=== PATIENT | female | born 1985 | race Caucasian/White ===

== ENCOUNTER 2016-07-30 17:48 | Emergency (ER) | payer OTHER ==
--- NOTE | 2016-07-30 18:34 | PD ---
HPI Chief Complaint Fall Date Seen: July 30, 2016 Travel History International Travel<30 Days: No Contact w/Intl Traveler<30Days: No Known Affected Area: No History of Present Illness HPI 31-year-old female at 33 weeks and 5 days comes in today due to a fall. Patient was caught shoplifting and was running from the uniform patrol police officer when she fell on her side at approximately 5 PM today. Patient states that she's had some pelvic pressure during the day today but no abdominal pain pelvic pain or other trauma. Patient admits to using cocaine and heroin and marijuana this morning. Patient has seen Dr. Salcedo in the past but has not had any further care for several weeks. Para: 1 : 4 : 2 History Past Medical History Medical History: Denies Significant Hx Obstetric History Obstetric History 1 spontaneous vaginal delivery Past Surgical History Narrative Surgical Inguinal hernia surgery Family History Family History: Negative Social History Alcohol Use: Yes Tobacco Use: Yes Substance Abuse: Yes Allergies-Medications (Allergen,Severity, Reaction): Coded Allergies: No Known Allergies (Unverified , 02/03/16) Home Meds No Active Prescriptions or Reported Meds Review of Systems Except as stated in HPI: all other systems reviewed are Neg Physical Exam Narrative GENERAL: Well-nourished, well-developed patient. SKIN: Warm and dry. HEAD: Normocephalic and atraumatic. EYES: No scleral icterus. No injection or drainage. ENT: No nasal drainage noted. Mucous membranes pink. Airway patent. NECK: Supple, trachea midline. No JVD. CARDIOVASCULAR: Regular rate and rhythm without murmurs, gallops, or rubs. RESPIRATORY: Breath sounds equal bilaterally. No accessory muscle use. BREASTS: Bilateral exam showed no masses , no retractions, no nipple discharge. ABDOMEN/GI: Abdomen soft, non-tender, bowel sounds present, no rebound, no guarding Gravid to [-32] weeks size Fundal Height: [33-] GENITOURINARY: External Genitalia: intact and normal in appearance BUS glands: [-Normal] Cervix: [Posterior] Dilatation: [-Fingertip] Effacement: [50-] Station: [-High] Presentation: [-Vertex] Membranes: [intact or ruptured] Uterine Contractions: [-Absent] FHT's: Category: [-1] Baseline: [-145] Reactive: [-Moderate] Variability: [-Moderate] Decels: [-Absent] EXTREMITIES: No cyanosis or edema. BACK: Nontender without obvious deformity. No CVA tenderness. NEUROLOGICAL: Awake and alert. Motor and sensory grossly within normal limits. Five out of 5 muscle strength in all muscle groups. Normal speech. Data Data Vital Signs Reviewed: Yes Labs Laboratory Tests Test 07/30/16 07/30/16 17:54 18:30 Urine Opiates Screen POS Urine Barbiturates Screen NEG Urine Amphetamines Screen NEG Urine Benzodiazepines Screen NEG Urine Cocaine Screen POS Urine Cannabinoids Screen POS White Blood Count 11.0 TH/MM3 Red Blood Count 3.50 MIL/MM3 Hemoglobin 9.8 GM/DL Hematocrit 29.4 % Mean Corpuscular Volume 83.9 FL Mean Corpuscular Hemoglobin 28.1 PG Mean Corpuscular Hemoglobin 33.5 % Concent Red Cell Distribution Width 16.2 % Platelet Count 293 TH/MM3 Mean Platelet Volume 7.8 FL Neutrophils (%) (Auto) 79.0 % Lymphocytes (%) (Auto) 13.5 % Monocytes (%) (Auto) 6.1 % Eosinophils (%) (Auto) 0.6 % Basophils (%) (Auto) 0.8 % Neutrophils # (Auto) 8.7 TH/MM3 Lymphocytes # (Auto) 1.5 TH/MM3 Monocytes # (Auto) 0.7 TH/MM3 Eosinophils # (Auto) 0.1 TH/MM3 Basophils # (Auto) 0.1 TH/MM3 CBC Comment DIFF FINAL Differential Comment Blood Type O POSITIVE MDM Plan 31-year-old female at 33 weeks 5 days no signs of labor, no contractions. Patient is O+ profile was ordered, patient will be discharged she is being taken to detention at this time Diagnosis Diagnosis: Primary Impression: Substance abuse affecting in third trimester, antepartum Additional Impressions: Fall (on) (from) other stairs and steps, sequela Fall (on)(from) sidewalk curb, initial encounter infant with weight of 1,750 to 1,999 grams and 33 completed weeks of gestation 33 weeks gestation of Disposition: DISCHARGE HOME Scripts No Active Prescriptions or Reported Meds Thais Engle MD July 30, 2016 18:34
[2016-07-30 18:59] LABS: AUTOMATED NEUTROPHIL # 8.7 TH/MM3 (1.8-7.7); BASOPHIL # 0.1 TH/MM3 (0-0.2); BASOPHIL % 0.8 % (0.0-2.0); EOSINOPHIL # 0.1 TH/MM3 (0-0.4); EOSINOPHIL % 0.6 % (0.0-4.0); HEMATOCRIT 29.4 % (35.0-46.0); HEMO FLAGS DIFF FINAL; LYMPH % 13.5 % (9.0-44.0); LYMPHOCYTE # 1.5 TH/MM3 (1.0-4.8); MEAN CELL VOLUME 83.9 FL (80.0-100.0); MEAN CORPUSCULAR HEMOGLOBIN 28.1 PG (27.0-34.0); MEAN CORPUSCULAR HGB CONC 33.5 % (32.0-36.0); MONO % 6.1 % (0.0-8.0); PLATELET COUNT 293 TH/MM3 (150-450); RED CELL DISTRIBUTION WIDTH 16.2 % (11.6-17.2)
[2016-07-30 19:11] LABS: AMPHETAMINE, URINE NEG (NEG); BARBITURATES, URINE NEG (NEG); COCAINE, URINE POS (NEG)
[2016-07-30 22:42] LABS: RUBELLA IGG ANTIBODY 2.7 IU/mL (10.0-500.0); RUBELLA STATUS NON-IMMUNE (IMMUNE)
[2016-07-31 11:50] LABS: RAPID PLASMA REAGIN SCREEN NON-REACTIVE (NON-REACTVE)
== END 2016-07-30 19:41 | disposition home or self-care (01) ==
LOC: HOBED 17:48
DX: O99.323 Drug use complicating pregnancy, third trimester (principal); F14.10 Cocaine abuse, uncomplicated; F11.10 Opioid abuse, uncomplicated; Z3A.33 33 weeks gestation of pregnancy
CPT/HCPCS: 59025; 80074; 80307; 85025; 86592; 86703; 86762; 86850; 86900; 86901

== ENCOUNTER 2016-09-27 18:44 | Emergency (ER) | payer OTHER ==
[~2016-09-27] VITALS: Ht 160 cm; Wt 60.0 kg
[2016-09-27 18:51] VITALS: BP 102/59; PULSE 70; RESP 12; TEMP 97.4; O2SAT 95
[2016-09-27] MEDS ORDERED: SODIUM CHLOR 0.9% 1000 ML INJ 1,000 ML IV ONE (18:59)
[2016-09-27] MEDS ORDERED: NALOXONE HCL 0.4 MG/ML AMP IVP ONE (19:00)
[2016-09-27] MEDS ORDERED: SODIUM CHLORIDE 0.9% FLUSH 10 ML FLUSH IVF PRN (19:00)
[2016-09-27] MEDS ORDERED: NALOXONE HCL 0.4 MG/ML AMP ONE (19:02)
--- NOTE | 2016-09-27 19:02 | PD ---
HPI Chief Complaint: Alcohol/Drug Intoxication Time Seen by Provider: 19:01 Travel History International Travel<30 days: No Contact w/Intl Traveler<30days: No Traveled to known affect area: No History of Present Illness HPI 31-year-old female brought to the emergency department and requires act for evaluation. Per report, patient was lying in the Road, unable to ambulate on her own. Patient admits to taking 36 mg of Dilaudid IV today. She denies suicidal homicidal ideations. Patient does have ecchymosis on her face and states that she "ran into something." She is otherwise a very poor historian.. [facility] Past Medical History Anxiety: Yes Diabetes: No Diminished Hearing: No Tetanus Vaccination: Unknown ?: Unknown Para: 1 : 1 Past Surgical History Surgical History: Unable to Obtain Social History Alcohol Use: Yes Tobacco Use: Yes Substance Use: Yes (heroin) Allergies-Medications (Allergen,Severity, Reaction): Coded Allergies: No Known Allergies (Unverified , 09/27/16) Reported Meds & Prescriptions Reported Meds & Active Scripts Active No Active Prescriptions or Reported Medications Review of Systems ROS Limitations: Intoxication, Poor Historian Except as stated in HPI: all other systems reviewed are Neg Physical Exam Exam Limitations: Intoxication, Poor Historian Narrative GENERAL: Unkempt female patient, seemingly under the influence, difficult to arouse. SKIN: Focused skin assessment warm/dry. Multiple scabbed lesions on the lower extremities, face, upper extremities. HEAD: Atraumatic. Normocephalic. EYES: Pupils equal and round. No scleral icterus. No injection or drainage. ENT: No nasal bleeding or discharge. Mucous membranes pink and moist. NECK: Trachea midline. No JVD. CARDIOVASCULAR: Elevated rate and rhythm. No murmur appreciated. RESPIRATORY: No accessory muscle use. Clear to auscultation. Breath sounds equal bilaterally. GASTROINTESTINAL: Abdomen soft, non-tender, nondistended. Hepatic and splenic margins not palpable. MUSCULOSKELETAL: No obvious deformities. No clubbing. No cyanosis. No edema. NEUROLOGICAL: Initially of attended. Arousable to painful stimuli. Unable to assess cranial nerves. Moves all extremities. Data Data Last Documented VS Vital Signs Date Time Temp Pulse Resp B/P Pulse Ox O2 Delivery O2 Flow Rate FiO2 09/27/16 20:04 72 18 95/63 99 Room Air 09/27/16 18:51 97.4 Orders Electrocardiogram (09/27/16 18:59) Complete Blood Count With Diff (09/27/16 18:59) Comprehensive Metabolic Panel (09/27/16 18:59) Prothrombin Time / Inr (Pt) (09/27/16 18:59) Act Partial Throm Time (Ptt) (09/27/16 18:59) Urinalysis - C+S If Indicated (09/27/16 18:59) Chest, Single Ap (09/27/16 18:59) Ct Brain W/O Iv Contrast(Rout) (09/27/16 18:59) Iv Access Insert/Monitor (09/27/16 18:59) Ecg Monitoring (09/27/16 18:59) Oximetry (09/27/16 18:59) Naloxone Inj (Narcan Inj) (09/27/16 19:00) Sodium Chloride 0.9% Flush (Ns Flush) (09/27/16 19:00) Sodium Chlor 0.9% 1000 Ml Inj (Ns 1000 M (09/27/16 18:59) Drug Screen, Random Urine (09/27/16 18:59) Alcohol (Ethanol) (09/27/16 18:59) Salicylates (Aspirin) (09/27/16 18:59) Tylenol (Acetaminophen) (09/27/16 18:59) Ct Facial Bones W/O Iv Cont (09/27/16 ) Naloxone Inj (Narcan Inj) (09/27/16 19:02) Naloxone Inj (Narcan Inj) (09/27/16 21:00) Labs Laboratory Tests Test 09/27/16 19:10 White Blood Count 6.8 TH/MM3 Red Blood Count 4.09 MIL/MM3 Hemoglobin 11.1 GM/DL Hematocrit 33.6 % Mean Corpuscular Volume 82.1 FL Mean Corpuscular Hemoglobin 27.2 PG Mean Corpuscular Hemoglobin 33.2 % Concent Red Cell Distribution Width 15.6 % Platelet Count 371 TH/MM3 Mean Platelet Volume 7.8 FL Neutrophils (%) (Auto) 59.0 % Lymphocytes (%) (Auto) 26.5 % Monocytes (%) (Auto) 11.0 % Eosinophils (%) (Auto) 2.1 % Basophils (%) (Auto) 1.4 % Neutrophils # (Auto) 4.0 TH/MM3 Lymphocytes # (Auto) 1.8 TH/MM3 Monocytes # (Auto) 0.7 TH/MM3 Eosinophils # (Auto) 0.1 TH/MM3 Basophils # (Auto) 0.1 TH/MM3 CBC Comment DIFF FINAL Differential Comment Prothrombin Time 10.3 SEC Prothromb Time International 0.9 RATIO Ratio Activated Partial 32.0 SEC Thromboplast Time Sodium Level 141 MEQ/L Potassium Level 3.6 MEQ/L Chloride Level 108 MEQ/L Carbon Dioxide Level 26.4 MEQ/L Anion Gap 7 MEQ/L Blood Urea Nitrogen 6 MG/DL Creatinine 0.82 MG/DL Estimat Glomerular Filtration 81 ML/MIN Rate Random Glucose 77 MG/DL Calcium Level 8.4 MG/DL Total Bilirubin 0.5 MG/DL Aspartate Amino Transf 30 U/L (AST/SGOT) Alanine Aminotransferase 38 U/L (ALT/SGPT) Alkaline Phosphatase 86 U/L Total Protein 7.6 GM/DL Albumin 3.0 GM/DL Salicylates Level 3.6 MG/DL Acetaminophen Level LESS THAN 2.0 MCG/ML Ethyl Alcohol Level 90 MG/DL [facility] Medical Decision Making Medical Screen Exam Complete: Yes Emergency Medical Condition: Yes Medical Record Reviewed: Yes Differential Diagnosis Substance abuse versus overdose versus intoxication versus electrolyte abnormality versus intracranial hemorrhage Narrative Course 31-year-old female with history of IV drug abuse presents to emergency department under [place] act. Initially patient is obtunded. She is given 0.4 mg IV Narcan and arouses. She reports taking 36 mg of IV Dilaudid today. He does have left periorbital ecchymosis. CT angiogram facial bones is without acute abnormality. Nasal fracture is again noted as on previous CT. CBC and CMP are without acute concern. Toxicology is with salicylates 3.6, acetaminophen less than 2, EtOH 90. Urine tox screen has not yet been collected. 2045 patient is becoming obtunded again. She'll be given 2 mg Narcan this time. She will continue to be monitored until she is clinically sober at which time she will discharge. Diagnosis Primary Impression: IVDU (intravenous drug user) Additional Impression: Facial contusion Qualified Code: S00.83XA - Facial contusion, initial encounter Scripts No Active Prescriptions or Reported Meds Condition: Stable Suzanna Corcoran Sep 27, 2016 19:02
--- NOTE | 2016-09-27 19:52 | RADRPT ---
EXAM DATE/TIME: 09/27/2016 19:28 [facility] COMPARISON: CT BRAIN W/O CONTRAST, January 14, 2016, 3:00. INDICATIONS : Altered mental status. RADIATION DOSE: 56.35 CTDIvol (mGy) MEDICAL HISTORY : Non-responsive. SURGICAL HISTORY : Non-responsive. ENCOUNTER: Initial ACUITY: 1 day PAIN SCALE: 0/10 LOCATION: cranial TECHNIQUE: Multiple contiguous axial images were obtained of the head. Using automated exposure control and adj ustment of the mA and/or kV according to patient size, radiation dose was kept as low as reasonably a chievable to obtain optimal diagnostic quality images. DICOM format image data is available electro nically for review and comparison. FINDINGS: CEREBRUM: The ventricles are normal for age. No evidence of midline shift, mass lesion, hemorrhage or acute in farction. No extra-axial fluid collections are seen. POSTERIOR FOSSA: The cerebellum and brainstem are intact. The 4th ventricle is midline. The cerebellopontine angle i s unremarkable. EXTRACRANIAL: The visualized portion of the orbits is intact. There is mild right maxillary sinus disease. SKULL: The calvaria is intact. No evidence of skull fracture. CONCLUSION: 1. No intracranial abnormality is seen. 2. Mild right maxillary sinus disease. Bryan Barnes MD on September 27, 2016 at 19:48 Board Certified Radiologist. This report was verified electronically.
--- NOTE | 2016-09-27 19:55 | RADRPT ---
EXAM DATE/TIME: 09/27/2016 19:31 [facility] COMPARISON: CT FACIAL BONES W/O CONTRAST, January 14, 2016, 3:00. INDICATIONS : Trauma to face. RADIATION DOSE: 36.44 CTDIvol (mGy) MEDICAL HISTORY : Non-responsive. SURGICAL HISTORY : Non-responsive. ENCOUNTER: Initial ACUITY: 1 day PAIN SCORE: 5/10 LOCATION: facial TECHNIQUE: Volumetric scanning of the facial bones was performed. Using automated exposure control and adjustme nt of the mA and/or kV according to patient size, radiation dose was kept as low as reasonably achiev able to obtain optimal diagnostic quality images. DICOM format image data is available electronicall y for review and comparison. FINDINGS: ORBITS: The orbital and infraorbital osseous structures are intact. The retroconal structures have a normal configuration. No radiopaque foreign bodies are seen. NASAL BONE: There is buckling of the left nasal bone which is likely a deformity from prior fracture seen on the prior exam. An acute fracture is not seen. ZYGOMATIC ARCHES: Symmetric without evidence of fracture. SINUSES: There is right maxillary, left frontal and left ethmoid sinus disease. NASAL CAVITY: The nasal septum is intact and midline. The lacrimal ducts are intact. SOFT TISSUES: No radiopaque foreign bodies seen. No soft-tissue swelling is seen. INTRACRANIAL: No intracranial air seen. CRIBIFORM PLATE: Grossly intact. CONCLUSION: Suspected chronic buckling of the left nasal bone, an acute fracture was seen on the prior exam. An a cute fracture is not seen on today's exam. There is sinus disease. Bryan Barnes MD on September 27, 2016 at 19:49 Board Certified Radiologist. This report was verified electronically.
[2016-09-27 20:00] LABS: BASOPHIL # 0.1 TH/MM3 (0-0.2); BASOPHIL % 1.4 % (0.0-2.0); EOSINOPHIL # 0.1 TH/MM3 (0-0.4); EOSINOPHIL % 2.1 % (0.0-4.0); HEMATOCRIT 33.6 % (35.0-46.0); HEMO FLAGS DIFF FINAL; LYMPH % 26.5 % (9.0-44.0); LYMPHOCYTE # 1.8 TH/MM3 (1.0-4.8); MEAN CELL VOLUME 82.1 FL (80.0-100.0); MEAN CORPUSCULAR HEMOGLOBIN 27.2 PG (27.0-34.0); MEAN CORPUSCULAR HGB CONC 33.2 % (32.0-36.0); PLATELET COUNT 371 TH/MM3 (150-450); RED BLOOD COUNT 4.09 MIL/MM3 (4.00-5.30); RED CELL DISTRIBUTION WIDTH 15.6 % (11.6-17.2); WHITE BLOOD COUNT 6.8 TH/MM3 (4.0-11.0)
[2016-09-27 20:04] VITALS: BP 95/63; PULSE 72; RESP 18; O2SAT 99
[2016-09-27 20:10] LABS: INTERNATIONAL NORMALIZED RATIO 0.9 RATIO; PROTHROMBIN TIME - PATIENT 10.3 SEC (9.8-11.6)
[2016-09-27 20:13] LABS: ANION GAP 7 MEQ/L (5-15); AST (GOT) 30 U/L (15-37); BICARBONATE 26.4 MEQ/L (21.0-32.0); BLOOD UREA NITROGEN 6 MG/DL (7-18); CHLORIDE 108 MEQ/L (98-107); GLOMERULAR FILTRATION RATE 81 ML/MIN (>89); POTASSIUM 3.6 MEQ/L (3.5-5.1); SODIUM (NA) 141 MEQ/L (136-145)
[2016-09-27 20:14] LABS: ALT (GPT) 38 U/L (10-53)
[2016-09-27 20:16] LABS: ACETAMINOPHEN LESS THAN 2.0 MCG/ML (10.0-30.0); ALKALINE PHOSPHATASE 86 U/L (45-117); TOTAL BILIRUBIN ADULT 0.5 MG/DL (0.2-1.0)
[2016-09-27] MEDS ORDERED: NALOXONE HCL 2 MG/2 ML VIAL IM ONE (21:00)
--- NOTE | 2016-09-28 13:18 | EKG ---
Date Performed: 09/27/2016 Time Performed: 19:09:17 PTAGE: 31 years EKG: Sinus rhythm NORMAL ECG NO PREVIOUS TRACING DOCTOR: Niurka Morales Interpretating Date/Time 09/28/2016 13:17:44
== END 2016-09-28 06:23 | disposition home or self-care (01) ==
LOC: NEPC 18:44 → NEPD 09-28 06:23
DX: F19.10 Other psychoactive substance abuse, uncomplicated (principal); S00.83XA Contusion of other part of head, initial encounter; X58.XXXA Exposure to other specified factors, initial encounter
CPT/HCPCS: 70450; 70486; 80053; 80307; 85025; 85610; 85730; 93005; 96372; 96374; 99285; J2310; J7030

== ENCOUNTER 2016-11-12 08:09 | Emergency (ER) | payer OTHER ==
[2016-11-12] VITALS (8 sets, daily range): BP systolic 93–134; BP diastolic 52–83; PULSE 64–126; RESP 10–20; TEMP 97.9; O2SAT 95–99
[~2016-11-12] VITALS: Ht 162.6 cm; Wt 60.0 kg
[2016-11-12] MEDS ORDERED: HALOPERIDOL LACTATE 5 MG/ML AMP IM ONE (08:15)
[2016-11-12] MEDS ORDERED: diphenhydrAMINE HCL 50 MG/ML VIAL IM ONE (08:15)
[2016-11-12] MEDS ORDERED: SODIUM CHLORIDE 0.9% FLUSH 10 ML FLUSH IVF PRN (08:15)
[2016-11-12] MEDS ORDERED: LORazepam 2 MG/ML VIAL IM ONE (08:15)
[2016-11-12 08:46] LABS: AUTOMATED NEUTROPHIL # 6.6 TH/MM3 (1.8-7.7); BASOPHIL # 0.1 TH/MM3 (0-0.2); BASOPHIL % 1.3 % (0.0-2.0); EOSINOPHIL # 0.2 TH/MM3 (0-0.4); EOSINOPHIL % 2.1 % (0.0-4.0); HEMATOCRIT 33.5 % (35.0-46.0); HEMO FLAGS DIFF FINAL; LYMPHOCYTE # 1.6 TH/MM3 (1.0-4.8); MEAN CELL VOLUME 83.3 FL (80.0-100.0); MEAN CORPUSCULAR HGB CONC 33.6 % (32.0-36.0); MONO % 8.7 % (0.0-8.0); NEUT % 70.9 % (16.0-70.0); PLATELET COUNT 385 TH/MM3 (150-450); RED BLOOD COUNT 4.02 MIL/MM3 (4.00-5.30); RED CELL DISTRIBUTION WIDTH 16.2 % (11.6-17.2); WHITE BLOOD COUNT 9.4 TH/MM3 (4.0-11.0)
[2016-11-12 08:58] LABS: ANION GAP 6 MEQ/L (5-15); BICARBONATE 26.5 MEQ/L (21.0-32.0); BLOOD UREA NITROGEN 12 MG/DL (7-18); CHLORIDE 107 MEQ/L (98-107); GLOMERULAR FILTRATION RATE 77 ML/MIN (>89); POTASSIUM 3.7 MEQ/L (3.5-5.1); SODIUM (NA) 139 MEQ/L (136-145)
[2016-11-12 09:02] LABS: ALCOHOL LESS THAN 3 MG/DL (0-5)
--- NOTE | 2016-11-12 09:02 | PD ---
HPI Chief Complaint: Psychiatric Symptoms Time Seen by Provider: 08:14 Travel History International Travel<30 days: No Contact w/Intl Traveler<30days: No Traveled to known affect area: No History of Present Illness HPI This is a 31-year-old female brought in under [place] act by Jose R FERNANDEZ. The patient was found acting inappropriately running into the street taking off her clothes. She became very aggressive with the safety instruction police officer and [facility] crew. She is very uncooperative and aggressive towards the staff and myself. She is not answering questions. She states that she is not taking any drugs. [facility] Past Medical History Anxiety: Yes Diabetes: No Diminished Hearing: No ?: Unknown Para: 1 : 1 Social History Alcohol Use: Yes Tobacco Use: Yes Substance Use: Yes (heroin) Allergies-Medications (Allergen,Severity, Reaction): Coded Allergies: No Known Allergies (Unverified , 09/27/16) Reported Meds & Prescriptions Reported Meds & Active Scripts Active Cipro (Ciprofloxacin HCl) 500 Mg Tab 500 Mg PO BID Review of Systems ROS Limitations: Intoxication, Uncooperative (patient not answering any questions and aggressive.) Except as stated in HPI: all other systems reviewed are Neg Physical Exam Narrative GENERAL: Well-developed female whose obviously under the influence of something who appears agitated and aggressive. SKIN: Focused skin assessment warm/dry. Patient has multiple excoriations across her face. No obvious draining weeping lesions. HEAD: Atraumatic. Normocephalic. EYES: Pupils equal and round. No scleral icterus. No injection or drainage. ENT: No nasal bleeding or discharge. Mucous membranes pink and moist. NECK: Trachea midline. No JVD. Supple. CARDIOVASCULAR: Regular rate and rhythm. No murmur appreciated. RESPIRATORY: No accessory muscle use. Clear to auscultation. Breath sounds equal bilaterally. GASTROINTESTINAL: Abdomen soft, non-tender, nondistended. Hepatic and splenic margins not palpable. MUSCULOSKELETAL: No obvious deformities. No clubbing. No cyanosis. No edema. NEUROLOGICAL: Awake and alert and agitated. No obvious cranial nerve deficits. Motor grossly within normal limits. Normal speech. PSYCHIATRIC: Aggressive and agitated. The patient is making threatening movements towards staff and myself. Data Data Last Documented VS Vital Signs Date Time Temp Pulse Resp B/P Pulse Ox O2 Delivery O2 Flow Rate FiO2 11/12/16 13:32 73 14 110/66 99 Room Air 8/16/17 09:10 97.9 Orders Basic Metabolic Panel (Bmp) (11/12/16 08:14) Complete Blood Count With Diff (11/12/16 08:14) Urinalysis - C+S If Indicated (11/12/16 08:14) Iv Access Insert/Monitor (11/12/16 08:14) Ecg Monitoring (11/12/16 08:14) Oximetry (11/12/16 08:14) Haloperidol Inj (Haldol Inj) (11/12/16 08:15) Lorazepam Inj (Ativan Inj) (11/12/16 08:15) Sodium Chloride 0.9% Flush (Ns Flush) (11/12/16 08:15) Drug Screen, Random Urine (11/12/16 08:14) Alcohol (Ethanol) (11/12/16 08:14) Salicylates (Aspirin) (11/12/16 08:14) Tylenol (Acetaminophen) (11/12/16 08:14) Diphenhydramine Inj (Benadryl Inj) (11/12/16 08:15) Ed Urine Pregnancytest Poc (11/12/16 08:14) Restraints Violent (11/12/16 08:25) Diet Regular Basic (11/12/16 Lunch) Labs Laboratory Tests Test 11/12/16 11/12/16 08:35 11:35 White Blood Count 9.4 TH/MM3 Red Blood Count 4.02 MIL/MM3 Hemoglobin 11.2 GM/DL Hematocrit 33.5 % Mean Corpuscular Volume 83.3 FL Mean Corpuscular Hemoglobin 28.0 PG Mean Corpuscular Hemoglobin 33.6 % Concent Red Cell Distribution Width 16.2 % Platelet Count 385 TH/MM3 Mean Platelet Volume 7.0 FL Neutrophils (%) (Auto) 70.9 % Lymphocytes (%) (Auto) 17.0 % Monocytes (%) (Auto) 8.7 % Eosinophils (%) (Auto) 2.1 % Basophils (%) (Auto) 1.3 % Neutrophils # (Auto) 6.6 TH/MM3 Lymphocytes # (Auto) 1.6 TH/MM3 Monocytes # (Auto) 0.8 TH/MM3 Eosinophils # (Auto) 0.2 TH/MM3 Basophils # (Auto) 0.1 TH/MM3 CBC Comment DIFF FINAL Differential Comment Sodium Level 139 MEQ/L Potassium Level 3.7 MEQ/L Chloride Level 107 MEQ/L Carbon Dioxide Level 26.5 MEQ/L Anion Gap 6 MEQ/L Blood Urea Nitrogen 12 MG/DL Creatinine 0.86 MG/DL Estimat Glomerular Filtration 77 ML/MIN Rate Random Glucose 66 MG/DL Calcium Level 8.9 MG/DL Salicylates Level 2.1 MG/DL Acetaminophen Level LESS THAN 2.0 MCG/ML Ethyl Alcohol Level LESS THAN 3 MG/DL Urine Color YELLOW Urine Turbidity CLEAR Urine pH 6.0 Urine Specific [place] 1.024 Urine Protein TRACE mg/dL Urine Glucose (UA) NEG mg/dL Urine Ketones TRACE mg/dL Urine Occult Blood NEG Urine Nitrite NEG Urine Bilirubin NEG Urine Urobilinogen 2.0 MG/DL Urine Leukocyte Esterase SMALL Urine RBC 1 /hpf Urine WBC 15 /hpf Urine Squamous Epithelial <1 /hpf Cells Urine Calcium Oxalate Crystals OCC /hpf Urine Mucus FEW /lpf Microscopic Urinalysis Comment CULT NOT INDICATED Urine Opiates Screen POS Urine Barbiturates Screen NEG Urine Amphetamines Screen NEG Urine Benzodiazepines Screen NEG Urine Cocaine Screen POS Urine Cannabinoids Screen NEG MDM Medical Decision Making Medical Screen Exam Complete: Yes Emergency Medical Condition: Yes Differential Diagnosis Psychosis versus substance induced mood disorder versus intoxication versus metabolic derangement. Narrative Course 31-year-old female presents under [place] act. The patient was found running into the street taking off her clothes. The patient is very aggressive to myself and the staff. She's been placed in restraints for our safety and her safety. She is uncooperative but denies taking any drugs. The patient has had several visits before and has a history from medical records of IVD drug use. I do not appreciate any fresh track molina. This is positive for opiates and cocaine. She has looked a urea and will be given a prescription for ciprofloxacin. She is medically cleared for psychiatry. She is currently sleeping secondary to the medications we gave her for her agitation and aggressive behavior. Diagnosis Primary Impression: Acute psychosis Additional Impressions: Substance induced mood disorder [place] medically cleared Scripts Ciprofloxacin (Cipro)500 Mg [id number] Mg PO BID #10 TAB Ref 0 Prov:Devon Rahman MD 11/12/16 Devon Rahman MD Nov 12, 2016 09:01
[2016-11-12 09:07] LABS: ACETAMINOPHEN LESS THAN 2.0 MCG/ML (10.0-30.0)
[2016-11-12 12:27] LABS: BLOOD, URINE NEG (NEG); CALCIUM OXALATE CRYSTALS,URINE OCC /hpf; COMMENT (UR) CULT NOT INDICATED; CULTURE IF INDICATED CULT NOT INDICATED; GLUCOSE,URINE NEG (NEG); KETONE, URINE TRACE mg/dL (NEG); MUCUS URINE FEW /lpf (OCC); NITRITE,URINE NEG (NEG); SQUAMOUS EPITHELIAL CELL URINE <1 /hpf (0-5); URINE COLOR YELLOW (YELLW/STRAW)
[2016-11-12] MEDS ORDERED: CIPR-9 PO (12:40)
[2016-11-13 02:00] VITALS: BP 97/61; PULSE 59; RESP 19; O2SAT 95
[2016-11-13 06:00] VITALS: BP 111/58; PULSE 64; RESP 19; O2SAT 95
--- NOTE | 2016-11-13 08:02 | PD ---
History of Present Illness Chief Complaint: Psychiatric Symptoms Time Seen by Provider: 07:50 Travel History International Travel<30 Days: No Contact w/Intl Traveler<30days: No Known affected area: No Legal Status Legal Status: Cosme Act Cosme Act Signed By: Shiraz Cosme Act Comment: brought in by [employer], found running in street removing clothes History of Present Illness: History of Present Illness This is a 31-year-old female with record history of substance use disorder who is brought in under Cosme act by [facility]. As per the report she was running in the road stripping her clothes off. Subject is extremely hostile and appears to be on narcotics. Subject may be trying to harm herself or others. Upon arrival to the ed she remained uncooperative and aggressive towards the staff, refusing to answer questions. She denied drug use. despite positive toxicology for cocaine as well as opiates. EMR is reviewed. The patient was brought to Ed on October 13 under a Leon act when she was found unresponsive. No contact with psychiatry. She was been monitored in J pod. She refused to answer questions and stated " I just want to sleep". This morning she is asleep but awakens with verbal stimuli. She is alert, oriented. Irritable. States " I'm not sure why the police brought me here. I don't remember much. It was a misunderstanding". States that " I just want to do my thing". She does not appear to be experiencing any acute psychiatric symptoms and is not responding to internal stimuli. No suicidal or homicidal ideation. She is not interested in pursuing treatment for her use of substances at this time and is cognitively not impaired. PFSH Past Medical History Anxiety: Yes Diabetes: No Diminished Hearing: No ?: Unknown Para: 1 : 1 Psychiatric History Psychiatric History Hx Psychiatric Treatment: None reported History of Inpatient Treatment: No Guns or firearms in home: No Social History Uncooperative Hx Alcohol Use: Yes Hx Tobacco Use: Yes Hx Substance Use: Yes Substance Use Type: Heroin, Cocaine, Synth Opiates-Pain Pills Other Substances Used: denies current use of any drugs Hx of Substance Use Treatment: No Family Psychiatric History Did not disclose Allergies-Medications (Allergen,Severity, Reaction): Coded Allergies: No Known Allergies (Unverified , 09/27/16) Reported Meds & Prescriptions Reported Meds & Active Scripts Active Cipro (Ciprofloxacin HCl) 500 Mg Tab 500 Mg PO BID Review of Systems ROS Limitations: Uncooperative Exam Alert: Yes Shobonier: Person (ox4) Mood: Calm Affect: Appropriate Speech: Clear Eye Contact: Indirect Memory Intact: Comment (Unable to assess) Hallucinations: Other (Negative) Delusions: No Suicidal: Ideation (Denies any) Homicidal: Ideation (Deneis any) Insight/Judgement Poor. Poor. MDM Medical Decision Making Medical Record Reviewed: Yes Assessment/Plan This is a 31-year-old female with record history of substance use disorder who is brought in under Cosme act by [employer]. As per the report she was running in the road stripping her clothes off. The patient presented under the influence of cocaine as well as opiates. She was allowed to sleep it off in secure environment. She did not present any psychiatric symptoms . This patient does not meet criteria for BA. She has a hx of substance use. She is discharged . Lift BA. Orders Basic Metabolic Panel (Bmp) (11/12/16 08:14) Complete Blood Count With Diff (11/12/16 08:14) Urinalysis - C+S If Indicated (11/12/16 08:14) Iv Access Insert/Monitor (11/12/16 08:14) Ecg Monitoring (11/12/16 08:14) Oximetry (11/12/16 08:14) Haloperidol Inj (Haldol Inj) (11/12/16 08:15) Lorazepam Inj (Ativan Inj) (11/12/16 08:15) Sodium Chloride 0.9% Flush (Ns Flush) (11/12/16 08:15) Drug Screen, Random Urine (11/12/16 08:14) Alcohol (Ethanol) (11/12/16 08:14) Salicylates (Aspirin) (11/12/16 08:14) Tylenol (Acetaminophen) (11/12/16 08:14) Diphenhydramine Inj (Benadryl Inj) (11/12/16 08:15) Ed Urine Pregnancytest Poc (11/12/16 08:14) Restraints Violent (11/12/16 08:25) Diet Regular Basic (11/12/16 Lunch) Psych Screen (11/12/16 14:38) Diet Regular Basic (11/12/16 Dinner) Diet Regular Basic (11/13/16 Breakfast) Results Vital Signs Date Time Temp Pulse Resp B/P Pulse Ox O2 Delivery O2 Flow Rate FiO2 11/13/16 06:00 64 19 111/58 95 Room Air 11/13/16 02:00 59 19 97/61 95 Room Air 11/12/16 22:07 74 19 97/62 96 Room Air 11/12/16 18:03 72 18 130/68 98 Room Air 11/12/16 17:11 64 12 125/83 99 Room Air 11/12/16 13:32 73 14 110/66 99 Room Air 11/12/16 10:46 89 13 118/79 95 Room Air 11/12/16 09:33 95 12 100/52 95 Room Air 11/12/16 09:10 97.9 95 10 93/52 95 Room Air 11/12/16 08:21 126 20 134/72 98 Laboratory Tests Test 11/12/16 11/12/16 08:35 11:35 White Blood Count 9.4 Red Blood Count 4.02 Hemoglobin 11.2 Hematocrit 33.5 Mean Corpuscular Volume 83.3 Mean Corpuscular Hemoglobin 28.0 Mean Corpuscular Hemoglobin 33.6 Concent Red Cell Distribution Width 16.2 Platelet Count 385 Mean Platelet Volume 7.0 Neutrophils (%) (Auto) 70.9 Lymphocytes (%) (Auto) 17.0 Monocytes (%) (Auto) 8.7 Eosinophils (%) (Auto) 2.1 Basophils (%) (Auto) 1.3 Neutrophils # (Auto) 6.6 Lymphocytes # (Auto) 1.6 Monocytes # (Auto) 0.8 Eosinophils # (Auto) 0.2 Basophils # (Auto) 0.1 CBC Comment DIFF FINAL Differential Comment Sodium Level 139 Potassium Level 3.7 Chloride Level 107 Carbon Dioxide Level 26.5 Anion Gap 6 Blood Urea Nitrogen 12 Creatinine 0.86 Estimat Glomerular Filtration 77 Rate Random Glucose 66 Calcium Level 8.9 Salicylates Level 2.1 Acetaminophen Level LESS THAN 2.0 Ethyl Alcohol Level LESS THAN 3 Urine Color YELLOW Urine Turbidity CLEAR Urine pH 6.0 Urine Specific [place] 1.024 Urine Protein TRACE Urine Glucose (UA) NEG Urine Ketones TRACE Urine Occult Blood NEG Urine Nitrite NEG Urine Bilirubin NEG Urine Urobilinogen 2.0 Urine Leukocyte Esterase SMALL Urine RBC 1 Urine WBC 15 Urine Squamous Epithelial <1 Cells Urine Calcium Oxalate Crystals OCC Urine Mucus FEW Microscopic Urinalysis Comment CULT NOT INDICATED Urine Opiates Screen POS Urine Barbiturates Screen NEG Urine Amphetamines Screen NEG Urine Benzodiazepines Screen NEG Urine Cocaine Screen POS Urine Cannabinoids Screen NEG Diagnosis Primary Impression: substance abuse Additional Impressions: leukouria Cocaine abuse Opiate abuse, continuous Psychiatrically Cleared: Yes Med/ Other Pt Specific Info: No Meds Exist/No RX given Prescriptions Ciprofloxacin (Cipro)500 Mg Pvf310 Mg PO BID #10 TAB Ref 0 Prov:Devon Rahman MD 11/12/16 Disposition: 01 DISCHARGE HOME Condition: Stable Problem Qualifiers Desiree Marie Nov 13, 2016 08:02
[2016-11-13 08:17] VITALS: BP 111/58
== END 2016-11-13 08:15 | disposition home or self-care (01) ==
LOC: NEPC 08:09 → NEPJ 11-13 08:15
DX: F14.10 Cocaine abuse, uncomplicated (principal); F11.10 Opioid abuse, uncomplicated
CPT/HCPCS: 80048; 80307; 81001; 84703; 85025; 96372; 99285; J1200; J1630; J2060

== ENCOUNTER 2016-12-12 19:23 | Emergency (ER) | payer SELFPAY ==
[~2016-12-12] VITALS: Ht 162.6 cm; Wt 51.0 kg
[~2016-12-12 19:23] MED LIST: CIPR-9 PO
[2016-12-12 19:26] VITALS: BP 103/57; PULSE 109; RESP 18; TEMP 98.9; O2SAT 98
[2016-12-12] MEDS ORDERED: LORazepam 2 MG/ML VIAL ONE (19:29)
[2016-12-12] MEDS ORDERED: SODIUM CHLOR 0.9% 1000 ML INJ 1,000 ML IV ONE (19:30)
[2016-12-12] MEDS ORDERED: LORazepam 2 MG/ML VIAL IV ONE (19:30)
[2016-12-12] MEDS ORDERED: LORazepam 2 MG/ML VIAL IM ONE (19:45)
[2016-12-12] MEDS ORDERED: MIDAZOLAM HCL 2 MG/2 ML VIAL IM ONE (20:00)
[2016-12-12 20:51] LABS: AUTOMATED NEUTROPHIL # 4.6 TH/MM3 (1.8-7.7); BASOPHIL # 0.1 TH/MM3 (0-0.2); BASOPHIL % 0.8 % (0.0-2.0); EOSINOPHIL # 0.2 TH/MM3 (0-0.4); EOSINOPHIL % 2.3 % (0.0-4.0); HEMATOCRIT 33.5 % (35.0-46.0); HEMO FLAGS DIFF FINAL; LYMPHOCYTE # 1.5 TH/MM3 (1.0-4.8); MEAN CELL VOLUME 82.8 FL (80.0-100.0); MEAN CORPUSCULAR HEMOGLOBIN 26.4 PG (27.0-34.0); MEAN CORPUSCULAR HGB CONC 31.9 % (32.0-36.0); MONO % 7.5 % (0.0-8.0); NEUT % 67.4 % (16.0-70.0); PLATELET COUNT 460 TH/MM3 (150-450); RED BLOOD COUNT 4.04 MIL/MM3 (4.00-5.30); RED CELL DISTRIBUTION WIDTH 15.4 % (11.6-17.2); WHITE BLOOD COUNT 6.9 TH/MM3 (4.0-11.0)
--- NOTE | 2016-12-12 20:54 | PD ---
HPI Chief Complaint: Psychiatric Symptoms Time Seen by Provider: 19:28 Travel History International Travel<30 days: No Contact w/Intl Traveler<30days: No Traveled to known affect area: No History of Present Illness HPI Patient is a 31-year-old female brought in by police under Cosme act. Per police, she was found finger erratically with no shirt on. Police believed her to be a danger to herself, slightly placed her under Cosme act. Patient does not provide any history. She cannot sit still on the bed and discuss and moving around. She has been here multiple times in the past for drug abuse. In the past she has been high on cocaine as well as opiates. [facility] Past Medical History Anxiety: Yes Diabetes: No Diminished Hearing: No Medical other: Yes (IV drug unbuse) Tetanus Vaccination: Unknown ?: Unknown LMP: unknown Para: 1 : 1 Past Surgical History Surgical History: Unable to Obtain Social History Alcohol Use: Yes Tobacco Use: Yes Substance Use: Yes (heroin) Allergies-Medications (Allergen,Severity, Reaction): Coded Allergies: No Known Allergies (Unverified , 09/27/16) Reported Meds & Prescriptions Reported Meds & Active Scripts Active Cipro (Ciprofloxacin HCl) 500 Mg Tab 500 Mg PO BID Review of Systems ROS Limitations: Intoxication Physical Exam Narrative GENERAL: Awake and alert, unable to sit still, repeatedly hitting herself. SKIN: Focused skin assessment warm/dry. Tract molina on the arms. No signs of infection. HEAD: Atraumatic. Normocephalic. EYES: Pupils equal and round. No scleral icterus. ENT: Mucous membranes pink and moist. NECK: Trachea midline. No JVD. CARDIOVASCULAR: Regular rate and rhythm. No murmur appreciated. RESPIRATORY: No accessory muscle use. Clear to auscultation. Breath sounds equal bilaterally. GASTROINTESTINAL: Abdomen soft, non-tender, nondistended. MUSCULOSKELETAL: No obvious deformities. No clubbing. No cyanosis. No edema. NEUROLOGICAL: Awake and alert. No obvious cranial nerve deficits. Motor grossly within normal limits. Normal speech. Data Data Last Documented VS Vital Signs Date Time Temp Pulse Resp B/P (MAP) Pulse Ox O2 Delivery O2 Flow Rate FiO2 12/13/16 06:34 74 16 114/77 (89) 100 Room Air 12/12/16 19:26 98.9 Orders Orders Lorazepam Inj (Ativan Inj) (12/12/16 19:29) Complete Blood Count With Diff (12/12/16 19:28) Comprehensive Metabolic Panel (12/12/16 19:28) Urinalysis - C+S If Indicated (12/12/16 19:28) Ed Urine Pregnancytest Poc (12/12/16 19:28) Psych Screen (12/12/16 19:28) Lorazepam Inj (Ativan Inj) (12/12/16 19:30) Drug Screen, Random Urine (12/12/16:28) Alcohol (Ethanol) (12/12/16 19:28) Salicylates (Aspirin) (12/12/16 19:28) Tylenol (Acetaminophen) (12/12/16 19:28) Creatine Kinase (Cpk) (12/12/16:28) Sodium Chlor 0.9% 1000 Ml Inj (Ns 1000 M (12/12/16 19:30) Lorazepam Inj (Ativan Inj) (12/12/16 19:45) Midazolam Inj (Versed Inj) (12/12/16 20:00) Labs Laboratory Tests Test 12/12/16 19:45 White Blood Count 6.9 TH/MM3 Red Blood Count 4.04 MIL/MM3 Hemoglobin 10.7 GM/DL Hematocrit 33.5 % Mean Corpuscular Volume 82.8 FL Mean Corpuscular Hemoglobin 26.4 PG Mean Corpuscular Hemoglobin Concent 31.9 % Red Cell Distribution Width 15.4 % Platelet Count 460 TH/MM3 Mean Platelet Volume 7.0 FL Neutrophils (%) (Auto) 67.4 % Lymphocytes (%) (Auto) 22.0 % Monocytes (%) (Auto) 7.5 % Eosinophils (%) (Auto) 2.3 % Basophils (%) (Auto) 0.8 % Neutrophils # (Auto) 4.6 TH/MM3 Lymphocytes # (Auto) 1.5 TH/MM3 Monocytes # (Auto) 0.5 TH/MM3 Eosinophils # (Auto) 0.2 TH/MM3 Basophils # (Auto) 0.1 TH/MM3 CBC Comment DIFF FINAL Differential Comment Blood Urea Nitrogen 11 MG/DL Creatinine 0.84 MG/DL Random Glucose 76 MG/DL Total Protein 8.2 GM/DL Albumin 3.2 GM/DL Calcium Level 9.1 MG/DL Alkaline Phosphatase 82 U/L Aspartate Amino Transf (AST/SGOT) 24 U/L Alanine Aminotransferase (ALT/SGPT) 25 U/L Total Bilirubin 0.3 MG/DL Sodium Level 141 MEQ/L Potassium Level 4.1 MEQ/L Chloride Level 107 MEQ/L Carbon Dioxide Level 27.7 MEQ/L Anion Gap 6 MEQ/L Estimat Glomerular Filtration Rate 79 ML/MIN Total Creatine Kinase 149 U/L Salicylates Level 2.8 MG/DL Acetaminophen Level LESS THAN 2.0 MCG/ML Ethyl Alcohol Level LESS THAN 3 MG/DL MDM Medical Decision Making Medical Screen Exam Complete: Yes Emergency Medical Condition: Yes Medical Record Reviewed: Yes Differential Diagnosis Drug intoxication versus psychosis versus dehydration Narrative Course Patient is a 31-year-old female brought in by police under Cosme act. She is refusing to provide any history. Exam shows patient to be unable to sit still, moving constantly on the stretcher. Labs sent, patient given Ativan. Labs show no acute abnormalities. Patient medically cleared for psychiatric evaluation. Diagnosis Primary Impression: Acute psychosis Condition: Stable Lori Lopez MD Dec 12, 2016 20:54
[2016-12-12 21:07] LABS: ANION GAP 6 MEQ/L (5-15); AST (GOT) 24 U/L (15-37); BICARBONATE 27.7 MEQ/L (21.0-32.0); BLOOD UREA NITROGEN 11 MG/DL (7-18); CHLORIDE 107 MEQ/L (98-107); GLOMERULAR FILTRATION RATE 79 ML/MIN (>89); POTASSIUM 4.1 MEQ/L (3.5-5.1); SODIUM (NA) 141 MEQ/L (136-145)
[2016-12-12 21:08] LABS: ALT (GPT) 25 U/L (10-53)
[2016-12-12 21:09] LABS: ALCOHOL LESS THAN 3 MG/DL (0-5)
[2016-12-12 21:10] LABS: ACETAMINOPHEN LESS THAN 2.0 MCG/ML (10.0-30.0); ALKALINE PHOSPHATASE 82 U/L (45-117); CREATINE KINASE 149 U/L (26-192); TOTAL BILIRUBIN ADULT 0.3 MG/DL (0.2-1.0)
[2016-12-12 23:25] VITALS: BP 116/76; PULSE 76; RESP 16; O2SAT 100
[2016-12-13 01:27] VITALS: BP 120/75; PULSE 75; RESP 16; O2SAT 100
[2016-12-13 04:56] VITALS: BP 104/67; PULSE 76; RESP 16; O2SAT 99
[2016-12-13 06:34] VITALS: BP 114/77; PULSE 74; RESP 16; O2SAT 100
[2016-12-13 10:13] LABS: BACTERIA, URINE MANY /hpf; BLOOD, URINE TRACE (NEG); COMMENT (UR) CULTURE INDICATED; CULTURE IF INDICATED CULTURE INDICATED; GLUCOSE,URINE NEG (NEG); KETONE, URINE NEG (NEG); MUCUS URINE MOD /lpf (OCC); NITRITE,URINE NEG (NEG); SQUAMOUS EPITHELIAL CELL URINE 1 /hpf (0-5); URINE COLOR YELLOW (YELLW/STRAW)
[2016-12-13 12:15] VITALS: BP 102/57; PULSE 74; RESP 16; TEMP 98.5; O2SAT 100
[2016-12-13 14:00] VITALS: BP 111/61; PULSE 60; RESP 18
[2016-12-13 18:54] VITALS: BP 128/72; PULSE 89; RESP 16
[2016-12-14 02:20] VITALS: BP 104/59; PULSE 68; RESP 16
--- NOTE | 2016-12-14 09:24 | PD ---
Physical Exam Date Seen by Provider: Dec 14, 2016 Time Seen by Provider: 09:20 Narrative Patient was initially brought in under a Cosme act after she was found walking around with her top off. Patient has a history of IVD drug use. The patient was noted to have cocaine and opiates in her system. The patient has been evaluated by Dr. Ortiz.. Her Cosme act has been lifted. The patient is not suicidal. She states that she was just changing her close in someone's backyard. Data Data Last Documented VS Vital Signs Date Time Temp Pulse Resp B/P (MAP) Pulse Ox O2 Delivery O2 Flow Rate FiO2 12/14/16 02:20 68 16 104/59 (74) 12/13/16 18:54 Room Air 12/13/16 12:15 98.5 100 Orders Orders Lorazepam Inj (Ativan Inj) (12/12/16 19:29) Complete Blood Count With Diff (12/12/16 19:28) Comprehensive Metabolic Panel (12/12/16 19:28) Urinalysis - C+S If Indicated (12/12/16 19:28) Ed Urine Pregnancytest Poc (12/12/16 19:28) Psych Screen (12/12/16 19:28) Lorazepam Inj (Ativan Inj) (12/12/16 19:30) Drug Screen, Random Urine (12/12/16 19:28) Alcohol (Ethanol) (12/12/16 19:28) Salicylates (Aspirin) (12/12/16 19:28) Tylenol (Acetaminophen) (12/12/16 19:28) Creatine Kinase (Cpk) (12/12/16 19:28) Sodium Chlor 0.9% 1000 Ml Inj (Ns 1000 M (12/12/16 19:30) Lorazepam Inj (Ativan Inj) (12/12/16 19:45) Midazolam Inj (Versed Inj) (12/12/16 20:00) Diet Regular Basic (12/13/16 Breakfast) Urine Culture (12/13/16 09:34) Diet Regular Basic (12/13/16 Lunch) Diet Regular Basic (12/13/16 Dinner) Diet Regular Basic (12/14/16 Breakfast) Labs Laboratory Tests Test 12/12/16 19:45 12/13/16 09:34 White Blood Count 6.9 TH/MM3 Red Blood Count 4.04 MIL/MM3 Hemoglobin 10.7 GM/DL Hematocrit 33.5 % Mean Corpuscular Volume 82.8 FL Mean Corpuscular Hemoglobin 26.4 PG Mean Corpuscular Hemoglobin Concent 31.9 % Red Cell Distribution Width 15.4 % Platelet Count 460 TH/MM3 Mean Platelet Volume 7.0 FL Neutrophils (%) (Auto) 67.4 % Lymphocytes (%) (Auto) 22.0 % Monocytes (%) (Auto) 7.5 % Eosinophils (%) (Auto) 2.3 % Basophils (%) (Auto) 0.8 % Neutrophils # (Auto) 4.6 TH/MM3 Lymphocytes # (Auto) 1.5 TH/MM3 Monocytes # (Auto) 0.5 TH/MM3 Eosinophils # (Auto) 0.2 TH/MM3 Basophils # (Auto) 0.1 TH/MM3 CBC Comment DIFF FINAL Differential Comment Blood Urea Nitrogen 11 MG/DL Creatinine 0.84 MG/DL Random Glucose 76 MG/DL Total Protein 8.2 GM/DL Albumin 3.2 GM/DL Calcium Level 9.1 MG/DL Alkaline Phosphatase 82 U/L Aspartate Amino Transf (AST/SGOT) 24 U/L Alanine Aminotransferase (ALT/SGPT) 25 U/L Total Bilirubin 0.3 MG/DL Sodium Level 141 MEQ/L Potassium Level 4.1 MEQ/L Chloride Level 107 MEQ/L Carbon Dioxide Level 27.7 MEQ/L Anion Gap 6 MEQ/L Estimat Glomerular Filtration Rate 79 ML/MIN Total Creatine Kinase 149 U/L Salicylates Level 2.8 MG/DL Acetaminophen Level LESS THAN 2.0 MCG/ML Ethyl Alcohol Level LESS THAN 3 MG/DL Urine Color YELLOW Urine Turbidity HAZY Urine pH 6.0 Urine Specific [place] 1.025 Urine Protein TRACE mg/dL Urine Glucose (UA) NEG mg/dL Urine Ketones NEG mg/dL Urine Occult Blood TRACE Urine Nitrite NEG Urine Bilirubin NEG Urine Urobilinogen 2.0 MG/DL Urine Leukocyte Esterase MOD Urine RBC 2 /hpf Urine WBC 35 /hpf Urine Squamous Epithelial Cells 1 /hpf Urine Bacteria MANY /hpf Urine Mucus MOD /lpf Microscopic Urinalysis Comment CULTURE INDICATED Urine Opiates Screen POS Urine Barbiturates Screen NEG Urine Amphetamines Screen NEG Urine Benzodiazepines Screen NEG Urine Cocaine Screen POS Urine Cannabinoids Screen POS MDM Medical Record Reviewed: Yes Supervised Visit with LOLA: No Narrative Course 31-year-old female brought in under [place] after being found with her top off wandering around outside. The patient has a history of polysubstance abuse. She'll be discharged as her Cosme act has been lifted. She is currently not suicidal. Diagnosis Primary Impression: Substance induced mood disorder Additional Impression: Cocaine abuse Referrals: [facility] Instructions: General Instructions, Cocaine Abuse (ED), Narcotic Abuse (ED), Methamphetamine Abuse (ED), Polysubstance Abuse (ED) Departure Forms: Tests/Procedures Disposition: 01 DISCHARGE HOME Condition: Stable Devon Rahman MD Dec 14, 2016 09:24
--- NOTE | 2016-12-14 12:15 | PD.PSY.CON ---
Provisional Diagnosis Admission Date Poulan I. Polysubstance dependence, including opiates, cocaine, cannabis and alcohol Poulan II. Deferred Poulan III. No significant medical history History of Present Illness Service Psychiatry Consult Requested By Reason for Consult Cosme act due to psychotic behavior Primary Care Physician No Primary Care Physician HPI Patient is a 31-year-old woman, domiciled with boyfriend in [place], unemployed, with psychiatric history of polysubstance dependence including cocaine, cannabis, heroine and alcohol, no previous psychiatric hospitalizations , no previous suicidal attempts, no significant medical history, who brought in by police under Cosme act. Per police, she was found finger erratically with no shirt on. Police believed her to be a danger to herself, slightly placed her under Cosme act. On psychiatric evaluation this morning patient is found in her room, calm and cooperative. She does not present any symptomatology or signs of intoxication. Patient reports that she was Cosme acted for no reason. She says that she was naked from the waist up in the yard of her house and not in the street. She denies depressive symptoms, she denies anxiety, she denies psychosis, she denies jailene, she denies suicidal and homicidal ideation, she denies visual and auditory hallucinations. No agitation, no aggressive behavior, no paranoia or delusions, no memory deficits present. The patient reports daily use of heroine, 2-3 bags, occasional use of cocaine, cannabis and alcohol. Review of Systems Constitutional: DENIES: Diaphoretic episodes, Fatigue, Fever, Weight gain, Weight loss, Chills, Dizziness, Change in appetite, Night Sweats Endocrine: DENIES: Abnorml menstrual pattern, Heat/cold intolerance, Polydipsia , Polyuria, Polyphagia Eyes: DENIES: Blurred vision, Diplopia, Eye inflammation, Eye pain, Vision loss , Photosensitivity, Double Vision Respiratory: DENIES: Apneas, Cough, Snoring, Wheezing, Hemoptysis, Sputum production, Shortness of breath Cardiovascular: DENIES: Chest pain, Palpitations, Syncope, Dyspnea on Exertion , PND, Lower Extremity Edema, Orthopnea, Claudication Gastrointestinal: DENIES: Abdominal pain, Black stools, Bloody stools, Constipation, Diarrhea, Nausea, Vomiting, Difficulty Swallowing, Anorexia Musculoskeletal: DENIES: Joint pain, Muscle aches, Stiffness, Joint Swelling, Back pain, Neck pain Integumentary: DENIES: Abnormal pigmentation, Pruritus, Rash, Nail changes, Breast masses, Breast skin changes, Nipple discharge Hematologic/lymphatic: DENIES: Bruising, Lymphadenopathy Immunologic/allergic: DENIES: Eczema, Urticaria Neurologic: DENIES: Abnormal gait, Headache, Localized weakness, Paresthesias, Seizures, Speech Problems, Tremor, Poor Balance Psychiatric: DENIES: Anxiety, Confusion, Mood changes, Depression, Hallucinations, Agitation, Suicidal Ideation, Homicidal Ideation, Delusions Past Family Social History Coded Allergies: No Known Allergies (Unverified , 09/27/16) Active Scripts Ciprofloxacin (Cipro) 500 Mg Tab, 500 MG PO BID for Infection, #10 TAB 0 Refills Prov:Devon Rahman MD 11/12/16 Family History Patient denies family psychiatric history Social History Patient was born and raised in [place], she lives in [place] with her boyfriend, she has 2 kids, unemployed, supported by boyfriend, highest level of education is GED Patient's Strengths (min. 2) Verbal communication Physical Exam Vital Signs Vital Signs Date Time Temp Pulse Resp B/P (MAP) Pulse Ox O2 Delivery O2 Flow Rate FiO2 12/14/16 10:23 12/14/16 02:20 68 16 12/13/16 18:54 Room Air 12/13/16 12:15 98.5 100 Lab Results Date/Time Source Procedure Growth Status 12/13/16 09:34 Urine Clean Catch Urine Culture - Preliminary Gram Negative Michael Resulted Mental Status Examination Appearance woman, age appearing, disheveled, calm and cooperative Speech: Unremarkable Orientation: x3 Memory: Unremarkable Thought Process: Logical Thought Content: Unremarkable Hallucination Type: None Suicidal Ideation: No Previous Suicide Attempts: No Homicidal Ideation: No Previous Homicide Attempts: No Judgment: WNL Affect: Good Mood: Appropriate Motor Activity: Normal gait Assessment & Plan Problem List: (1) Polysubstance (including opioids) dependence with physiological dependence ICD Codes: F19.20 - Other psychoactive substance dependence, uncomplicated Assessment & Plan: At the moment of this evaluation the patient does not present any evidence of neuropsychiatric symptoms that require an immediate psychiatric intervention or attention. Patient denies depression, she denies anxiety, she denies jailene and perceptual disturbances. Patient denies suicidal and homicidal ideation, she denies visual and auditory hallucinations. No paranoia, no delusions, no agitation or aggressive behavior reported. Patient is now clinically sober. Episode reported by police yesterday in which the patient was found naked from the waist up seems to be secondary to multiple substance intoxication and character structure, rather than than to a primary psychiatric illness decompensation. She does not meet criteria for admission. Extensive support, motivation and psychoeducation provided. Cosme act would be lifted. Assessment & Plan Estimated LOS: days Bud Rodriguez MD Dec 14, 2016 12:15
== END 2016-12-14 10:42 | disposition home or self-care (01) ==
LOC: NEPC 19:23 → NEPJ 12-14 10:42
DX: F19.14 Other psychoactive substance abuse with psychoactive substance-induced mood disorder (principal); F14.10 Cocaine abuse, uncomplicated; N39.0 Urinary tract infection, site not specified; B96.89 Other specified bacterial agents as the cause of diseases classified elsewhere; Z72.0 Tobacco use
CPT/HCPCS: 80053; 80307; 81001; 82550; 84703; 85025; 87077; 87086; 87186; 96372; 99284; J2060

== ENCOUNTER 2017-09-09 22:10 | Inpatient (IN) | payer SELFPAY ==
[~2017-09-09] VITALS: Ht 162.6 cm; Wt 60.2 kg
[2017-09-09 22:11] VITALS: BP 132/65; PULSE 139; RESP 17; TEMP 100.1; TEMP 102.6; O2SAT 100
[2017-09-09 22:30] VITALS: BP 166/74; PULSE 128; RESP 16; O2SAT 96
[2017-09-09] MEDS ORDERED: SODIUM CHLOR 0.9% 1000 ML INJ 1,000 ML IV ONE (22:31)
[2017-09-09] MEDS ORDERED: SODIUM CHLOR 0.9% 1000 ML INJ 800 ML IV ONE (22:31)
[2017-09-09 22:45] VITALS: O2SAT 99
[2017-09-09] MEDS ORDERED: ACETAMINOPHEN 325 MG TAB PO ONE (22:45)
[2017-09-09] MEDS ORDERED: VANCOMYCIN INJ 1,000 MG in SODIUM CHLOR 0.9% 250 ML INJ 250 ML IV ONE (22:45)
[2017-09-09] MEDS ORDERED: PIPERACIL-TAZO 4.5 GM PREMIX 100 ML IV ONE (22:45)
[2017-09-09 22:59] LABS: AUTOMATED NEUTROPHIL # 17.1 TH/MM3 (1.8-7.7); BASOPHIL # 0.1 TH/MM3 (0-0.2); BASOPHIL % 0.3 % (0.0-2.0); EOSINOPHIL % 0.1 % (0.0-4.0); HEMATOCRIT 30.2 % (35.0-46.0); HEMOGLOBIN 10.1 GM/DL (11.6-15.3); LYMPH % 6.4 % (9.0-44.0); LYMPHOCYTE # 1.3 TH/MM3 (1.0-4.8); MEAN CELL VOLUME 79.9 FL (80.0-100.0); MEAN CORPUSCULAR HEMOGLOBIN 26.8 PG (27.0-34.0); MEAN CORPUSCULAR HGB CONC 33.5 % (32.0-36.0); MEAN PLATELET VOLUME 7.2 FL (7.0-11.0); MONO % 6.5 % (0.0-8.0); MONOCYTE # 1.3 TH/MM3 (0-0.9); NEUT % 86.7 % (16.0-70.0); PLATELET COUNT 457 TH/MM3 (150-450); RED BLOOD COUNT 3.78 MIL/MM3 (4.00-5.30); RED CELL DISTRIBUTION WIDTH 17.4 % (11.6-17.2); WHITE BLOOD COUNT 19.7 TH/MM3 (4.0-11.0)
[2017-09-09 23:00] VITALS: BP 157/80; PULSE 132; RESP 24
[2017-09-09] MEDS ORDERED: LORazepam 2 MG/ML VIAL IV PUSH ONE (23:00)
[2017-09-09 23:06] LABS: INTERNATIONAL NORMALIZED RATIO 1.1 RATIO; PROTHROMBIN TIME - PATIENT 11.3 SEC (9.8-11.6)
--- NOTE | 2017-09-09 23:16 | RADRPT ---
EXAM DATE: 09/09/2017 11:13 PM EDT AGE/SEX: 32 years / Female INDICATIONS: Cough. AMS. CLINICAL DATA: This is the patient's initial encounter. Patient reports that signs and symptoms have been present for 1 day and indicates a pain score of 0/10. MEDICAL/SURGICAL HISTORY: Non-responsive. Non-responsive. COMPARISON: No prior exams available for comparison. FINDINGS: The exam is degraded by patient and respiratory motion. Grossly, lungs are symmetrically aerated with out definite consolidative infiltrate or significant effusion. Cardiomediastinal contours are grossly satisfactory. CONCLUSION: Motion degraded exam grossly negative. Electronically signed by: Bryan Ordoñez MD 09/09/2017 11:15 PM EDT
--- NOTE | 2017-09-09 23:21 | RADRPT ---
EXAM DATE: 09/09/2017 11:15 PM EDT AGE/SEX: 32 years / Female INDICATIONS: Wound check. Left tibia. CLINICAL DATA: This is the patient's initial encounter. Patient reports that signs and symptoms have been present for 1 day and indicates a pain score of 4/10. MEDICAL/SURGICAL HISTORY: Non-responsive. Non-responsive. COMPARISON: No prior exams available for comparison. FINDINGS: 2 views of left tibia and fibula. Bone alignment within normal limits. No evidence fracture. No evide nce of focal bone erosion. No radiopaque foreign body identified. No abnormal periosteal reaction. CONCLUSION: No evidence of fracture or focal bone erosion. Electronically signed by: Desmond Melton MD 09/09/2017 11:20 PM EDT
[2017-09-09 23:23] LABS: AST (GOT) 33 U/L (15-37); BLOOD UREA NITROGEN 9 MG/DL (7-18); CALCIUM 7.9 MG/DL (8.5-10.1); CHLORIDE 99 MEQ/L (98-107); CREATININE 0.83 MG/DL (0.50-1.00); GLOMERULAR FILTRATION RATE 80 ML/MIN (>89); GLUCOSE,RANDOM 83 MG/DL (74-106); SODIUM (NA) 134 MEQ/L (136-145)
[2017-09-09 23:24] LABS: ALT (GPT) 33 U/L (10-53)
[2017-09-09 23:27] LABS: ALKALINE PHOSPHATASE 107 U/L (45-117); MAGNESIUM 1.5 MG/DL (1.5-2.5); TOTAL BILIRUBIN ADULT 0.7 MG/DL (0.2-1.0); TOTAL PROTEIN 7.6 GM/DL (6.4-8.2); TROPONIN I LESS THAN 0.02 NG/ML (0.02-0.05)
--- NOTE | 2017-09-09 23:42 | PD ---
HPI Chief Complaint: Skin Problem Time Seen by Provider: 22:31 Travel History International Travel<30 days: No Contact w/Intl Traveler<30days: No Traveled to known affect area: No History of Present Illness HPI 32-year-old female presents to the emergency department complaining of severe left lower extremity pain and swelling. Patient states she has noticed these symptoms of the past few days. Patient states she was bitten by ants. Patient also admits to substance use heroin and cocaine. Patient states she has not had any heroin or cocaine since yesterday. Patient is not aware of whether she has had fever chills. Patient denies chest pain or shortness of breath. Patient is otherwise unable to provide any useful information as she intermittently just yells out and screams and rocks back and forth in the bed and will not give any more history. [facility] Past Medical History Narrative Medical Anxiety polysubstance abuse; nursing notes reviewed Anxiety: Yes Diabetes: No Diminished Hearing: No ?: Not Para: 1 : 1 Social History Alcohol Use: Yes Tobacco Use: Yes Substance Use: Yes (1/2ppd smoker, heroin daily x several mos., crack occasionally) Allergies-Medications (Allergen,Severity, Reaction): Coded Allergies: No Known Allergies (Verified Adverse Reaction, Unknown, 09/09/17) Reported Meds & Prescriptions Reported Meds & Active Scripts Active No Active Prescriptions or Reported Medications Review of Systems ROS Limitations: Clinical Condition, Uncooperative, Poor Historian Except as stated in HPI: all other systems reviewed are Neg Physical Exam Narrative GENERAL: Well-developed well-nourished markedly disheveled female intermittently yelling out writhing back and forth on the stretcher complaining about her leg and leg pain. GCS12. Febrile tachycardia SKIN: Warm and dry. Multiple areas of scab and pinpoint pustules to the extremities HEAD: Normocephalic. EYES: No scleral icterus. No injection or drainage. Pupils equal round reactive to light. NECK: Supple, trachea midline. No JVD or lymphadenopathy. CARDIOVASCULAR: Increased regular rate and rhythm without murmurs, gallops, or rubs. RESPIRATORY: Breath sounds equal bilaterally. No accessory muscle use. GASTROINTESTINAL: Abdomen soft, non-tender, nondistended. MUSCULOSKELETAL: No cyanosis, or edema. Attention left lower extremity with redness swelling tenderness warmth anterior rice ulceration 7 cm x 7 cm nonfluctuant no crepitus no deformity distally capillary refill brisk and less than 2 seconds 2+ dorsalis pedis pulse; no ascending erythema. BACK: Nontender without obvious deformity. No CVA tenderness. Data Data Last Documented VS Vital Signs Date Time Temp Pulse Resp B/P (MAP) Pulse Ox O2 Delivery O2 Flow Rate FiO2 09/10/17 00:30 96 Nasal Cannula 2.00 09/10/17 00:30 102.9 132 24 126/59 (81) Orders Orders Sepsis Workup Initiated (09/09/17 ) Electrocardiogram (09/09/17 22:31) Complete Blood Count With Diff (09/09/17 22:31) Comprehensive Metabolic Panel (09/09/17 22:31) Prothrombin Time / Inr (Pt) (09/09/17 22:31) Act Partial Throm Time (Ptt) (09/09/17 22:31) Lactic Acid Sepsis Protocol (09/09/17 22:31) Magnesium (Mg) (09/09/17 22:31) Lipase (09/09/17 22:31) Troponin I (09/09/17 22:31) Urinalysis - C+S If Indicated (09/09/17 22:31) Blood Culture (09/09/17 22:31) Wound Culture And Gram Stain (09/09/17 22:31) Chest, Single Ap (09/09/17 22:31) Blood Glucose (09/09/17 22:31) Ecg Monitoring (09/09/17 22:31) Iv Access Insert/Monitor (09/09/17 22:31) Oximetry (09/09/17 22:31) Oxygen Administration (09/09/17 22:31) Acetaminophen (Tylenol) (09/09/17 22:45) Sodium Chlor 0.9% 1000 Ml Inj (Ns 1000 M (09/09/17 22:31) Sodium Chlor 0.9% 1000 Ml Inj (Ns 1000 M (09/09/17 22:31) Ed Urine Pregnancytest Poc (09/09/17 22:31) Tibia/Fibula (Ap/Lat) (09/09/17 ) Us Leg Venous Doppler (09/09/17 ) Alcohol (Ethanol) (09/09/17 22:31) Drug Screen, Random Urine (09/09/17 22:31) Vancomycin Inj (Vancomycin Inj) (09/09/17 22:45) Piperacil-Tazo 4.5 Gm Premix (Zosyn 4.5 (09/09/17 22:45) Lorazepam Inj (Ativan Inj) (09/09/17 23:00) Cath For Specimen (09/10/17 00:38) Sodium Chlor 0.9% 1000 Ml Inj (Ns 1000 M (09/10/17 01:00) Clindamycin 600 Mg/Ns Premix (Cleocin 60 (09/10/17 01:00) Ct Brain W/O Iv Contrast(Rout) (09/10/17 ) Ct Tib/Fib W Iv Contrast (09/10/17 ) Ct Femur W Iv Contrast (09/10/17 ) Admit Order (Ed Use Only) (09/10/17 ) 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 ROSA.Q8H (09/10/17 01:28) Activity Bed Rest (09/10/17 01:28) Notify Dr: Other (09/10/17 01:28) Labs Laboratory Tests Test 09/09/17 22:30 09/09/17 22:40 09/10/17 00:46 Lactic Acid Level 1.0 mmol/L White Blood Count 19.7 TH/MM3 Red Blood Count 3.78 MIL/MM3 Hemoglobin 10.1 GM/DL Hematocrit 30.2 % Mean Corpuscular Volume 79.9 FL Mean Corpuscular Hemoglobin 26.8 PG Mean Corpuscular Hemoglobin Concent 33.5 % Red Cell Distribution Width 17.4 % Platelet Count 457 TH/MM3 Mean Platelet Volume 7.2 FL Neutrophils (%) (Auto) 86.7 % Lymphocytes (%) (Auto) 6.4 % Monocytes (%) (Auto) 6.5 % Eosinophils (%) (Auto) 0.1 % Basophils (%) (Auto) 0.3 % Neutrophils # (Auto) 17.1 TH/MM3 Lymphocytes # (Auto) 1.3 TH/MM3 Monocytes # (Auto) 1.3 TH/MM3 Eosinophils # (Auto) 0.0 TH/MM3 Basophils # (Auto) 0.1 TH/MM3 CBC Comment AUTO DIFF Differential Total Cells Counted 100 Neutrophils % (Manual) 86 % Band Neutrophils % 7 % Lymphocytes % 4 % Monocytes % 3 % Neutrophils # (Manual) 18.3 TH/MM3 Differential Comment FINAL DIFF MANUAL Toxic Granulation 2+ Platelet Estimate HIGH Platelet Morphology Comment NORMAL Prothrombin Time 11.3 SEC Prothromb Time International Ratio 1.1 RATIO Activated Partial Thromboplast Time 36.5 SEC Blood Urea Nitrogen 9 MG/DL Creatinine 0.83 MG/DL Random Glucose 83 MG/DL Total Protein 7.6 GM/DL Albumin 3.0 GM/DL Calcium Level 7.9 MG/DL Magnesium Level 1.5 MG/DL Alkaline Phosphatase 107 U/L Aspartate Amino Transf (AST/SGOT) 33 U/L Alanine Aminotransferase (ALT/SGPT) 33 U/L Total Bilirubin 0.7 MG/DL Sodium Level 134 MEQ/L Potassium Level 3.1 MEQ/L Chloride Level 99 MEQ/L Carbon Dioxide Level 22.0 MEQ/L Anion Gap 13 MEQ/L Estimat Glomerular Filtration Rate 80 ML/MIN Troponin I LESS THAN 0.02 NG/ML Lipase 31 U/L Ethyl Alcohol Level LESS THAN 3 MG/DL Urine Color YELLOW Urine Turbidity CLEAR Urine pH 6.5 Urine Specific [place] 1.031 Urine Protein 100 mg/dL Urine Glucose (UA) NEG mg/dL Urine Ketones NEG mg/dL Urine Occult Blood NEG Urine Nitrite NEG Urine Bilirubin NEG Urine Urobilinogen 2.0 MG/DL Urine Leukocyte Esterase MOD Urine RBC 3 /hpf Urine WBC 6 /hpf Urine Squamous Epithelial Cells 1 /hpf Microscopic Urinalysis Comment CATH-CULT NOT IND Urine Opiates Screen POS Urine Barbiturates Screen NEG Urine Amphetamines Screen POS Urine Benzodiazepines Screen NEG Urine Cocaine Screen POS Urine Cannabinoids Screen NEG MDM Medical Decision Making Medical Screen Exam Complete: Yes Emergency Medical Condition: Yes Medical Record Reviewed: Yes Interpretation(s) EKG: Sinus tachycardia rate 135 incomplete right bundle branch block nonspecific T-wave changes and ST deviation no acute ST elevation nonspecific ST segment depression Last Impressions Chest X-Ray 09/09/17 2231 Signed Impressions: CONCLUSION: Motion degraded exam grossly negative. Tibia/Fibula X-Ray 09/09/17 0000 Signed Impressions: CONCLUSION: No evidence of fracture or focal bone erosion. Lower Extremity Ultrasound 09/09/17 0000 Signed Impressions: CONCLUSION: No evidence of left lower extremity DVT. CBC & BMP Diagram 09/09/17 22:40 Total Protein 7.6, Albumin 3.0 L, Calcium Level 7.9 L, Magnesium Level 1.5, Alkaline Phosphatase 107, Aspartate Amino Transf (AST/SGOT) 33, Alanine Aminotransferase (ALT/SGPT) 33, Total Bilirubin 0.7 Vital Signs Date Time Temp Pulse Resp B/P (MAP) Pulse Ox O2 Delivery O2 Flow Rate FiO2 09/10/17 00:30 102.9 132 24 126/59 (81) 96 Nasal Cannula 2.00 09/09/17 23:00 132 24 157/80 (105) 09/09/17 22:45 99 Room Air 09/09/17 22:45 99 Room Air 09/09/17 22:30 128 16 166/74 (104) 96 Room Air 09/09/17 22:11 102.6 139 17 132/65 (87) 100 Differential Diagnosis Sepsis, cellulitis, abscess, osteomyelitis, polysubstance ingestion, fracture, also to consider compartment syndrome necrotizing fasciitis rhabdomyolysis Narrative Course IV access obtained patient placed on cardiac rehabilitation program director with continuous pulse oximetry due to her agitation and inability to be cooperative for exam Ativan 1 mg IV administered as sepsis protocol initiated with sepsis protocol bolus Patient with leukocytosis patient received Zosyn and Vancomycin; x-ray of the tibia and fibula reveals no radiopaque foreign body subcutaneous gas/air or bony abnormality Ultrasound is negative for DVT Chest x-ray no lobar infiltrate Metabolic panel hypokalemia potassium 3.1; lactic acid is 1.0, elevated bicarb is 22 with a normal range anion gap of 13 Troponin I is less than 0.02, elevated EKG is sinus tachycardia with no acute injury pattern At 12:40 AM patient remains febrile has received weight-based ibuprofen and evaporative cooling Urine specimen will be collected by cath specimen for urinalysis and tox screen Call placed to medicine service for admission; CT LLE pending [facility] at the bedside CT results pending; UDS pending patient taken to floor Critical Care Narrative Aggregate critical care time was 35 minutes. Time to perform other separately billable procedures was not included in the critical care time. My time did not include minutes spent treating any other patients simultaneously or on activities that did not directly contribute to the patient's treatment. The services I provided to this patient were to treat and/or prevent clinically significant deterioration that could result in: Septic shock osteomyelitis compartment syndrome necrotizing fasciitis endocarditis I provided critical care services requiring my management, as noted below: Chart data review, documentation time, medication orders and management, vital sign assessments/reviewing monitor data, ordering and reviewing lab tests, ordering and interpreting/reviewing x-rays and diagnostic studies, care of the patient and discussion of the patient with the admitting physicians. Physician Communication Physician Communication discussed with Dr Patrick Diagnosis Primary Impression: Sepsis affecting skin Additional Impressions: Cellulitis and abscess of left lower extremity IVDU (intravenous drug user) Admitting Information Admitting Physician Requests: Admit Scripts No Active Prescriptions or Reported Meds Ida Crump MD Sep 09, 2017 23:42
[2017-09-09 23:48] LABS: BANDS 7 % (0-6); LYMPHOCYTES 4 % (9-44); MONOCYTES 3 % (0-8); NEUTROPHIL # MANUAL DIFF 18.3 TH/MM3 (1.8-7.7); POLYS (SEG NEUTROPHILS) 86 % (16-70)
[2017-09-09 23:49] LABS: TOXIC GRANULATION 2+ (NORMAL)
--- NOTE | 2017-09-09 23:49 | RADRPT ---
EXAM DATE: 09/09/2017 11:27 PM EDT AGE/SEX: 32 years / Female INDICATIONS: Left lower extremity pain. CLINICAL DATA: This is the patient's initial encounter. Patient reports that signs and symptoms have been present for 1 day and indicates a pain score of 8/10. MEDICAL/SURGICAL HISTORY: . Left leg pain. None. COMPARISON: No prior exams available for comparison. No external comparison. TECHNIQUE: Venous ultrasound of both lower extremities was performed from the inguinal ligament to t he proximal calf. Real-time, color Doppler and spectral tracing, compression and augmentation techni ques were used. FINDINGS: There is normal compressibility of the deep venous system from the inguinal region to the proximal ca lf. No echogenic clot is seen in the lumen of the common femoral, femoral, popliteal, and posterior tibial veins. There is a normal response of the venous system to proximal and distal augmentation an d respiration. CONCLUSION: No evidence of left lower extremity DVT. Electronically signed by: Desmond Melton MD 09/09/2017 11:47 PM EDT
[2017-09-10] VITALS (9 sets, daily range): BP systolic 89–126; BP diastolic 53–68; PULSE 101–132; RESP 19–24; TEMP 97.8–102.9; O2SAT 94–100
[2017-09-10] MEDS ORDERED: SODIUM CHLOR 0.9% 1000 ML INJ 1,000 ML IV ONE ×3 (01:00→16:30)
[2017-09-10] MEDS ORDERED: CLINDAMYCIN 600 MG/NS PREMIX 50 ML IV ONE (01:00)
[2017-09-10 01:47] LABS: BILIRUBIN, URINE NEG (NEG); BLOOD, URINE NEG (NEG); GLUCOSE,URINE NEG (NEG); KETONE, URINE NEG (NEG); NITRITE,URINE NEG (NEG); PH, URINE 6.5 (5.0-8.5); SQUAMOUS EPITHELIAL CELL URINE 1 /hpf (0-5); URINE COLOR YELLOW (YELLW/STRAW); URINE LEUKOCYTE ESTERASE MOD (NEG)
[2017-09-10] MEDS ORDERED: IOHEXOL 350 MG/ML 10 ML VIAL (for RAD DIAG) IVCONTRAST ONE (02:12)
[2017-09-10] MEDS ORDERED: ACETAMINOPHEN 325 MG TAB PO PRN (02:15)
[2017-09-10] MEDS ORDERED: NALOXONE HCL 0.4 MG/ML AMP IV PUSH PRN (02:15)
[2017-09-10] MEDS ORDERED: LORazepam 2 MG/ML VIAL IV PUSH PRN (02:15)
[2017-09-10] MEDS ORDERED: Vancomycin Consult Pharmacy 1 EA OTHER SCH ×2 (02:15→11:30)
--- NOTE | 2017-09-10 02:16 | RADRPT ---
EXAM DATE: 09/10/2017 2:06 AM EDT AGE/SEX: 32 years / Female INDICATIONS: Altered mental status. CLINICAL DATA: This is the patient's initial encounter. Patient reports that signs and symptoms have been present for 1 day and indicates a pain score of Nonresponsive. MEDICAL/SURGICAL HISTORY: . substance use. None. RADIATION DOSE: 56.35 CTDI (mGy) COMPARISON: [facility] [place], CT BRAIN W/O CONTRAST, 09/27/2016. . TECHNIQUE: CT of the head without contrast. Using automated exposure control and adjustment of the mA and/or kV according to patient size, radiation dose was kept as low as reasonably achievable to ob tain optimal diagnostic quality images. FINDINGS: Cerebrum: The ventricles are normal for age. No evidence of midline shift, mass lesion, hemorrhage or acute infarction. No extraaxial fluid collections are seen. Posterior Fossa: The cerebellum and brainstem are intact. The 4th ventricle is midline. The cerebe llopontine angle is unremarkable. Extracranial: The visualized portion of the orbits is intact. Skull: The calvaria is intact. No evidence of skull fracture. CONCLUSION: No acute intracranial findings. Electronically signed by: Desmond Melton MD 09/10/2017 2:15 AM EDT
--- NOTE | 2017-09-10 02:53 | RADRPT ---
EXAM DATE: 09/10/2017 2:41 AM EDT AGE/SEX: 32 years / Female INDICATIONS: Leg pain. CLINICAL DATA: This is the patient's initial encounter. Patient reports that signs and symptoms have been present for 1 day and indicates a pain score of 4/10. MEDICAL/SURGICAL HISTORY: . substance use. None. RADIATION DOSE: 19.96 CTDI (mGy) ; Combined studies COMPARISON: No prior exams available for comparison. TECHNIQUE: Multiple contiguous axial images were acquired using a multirow detector CT scanner after the intravenous administration of 75 ml Omnipaque 350 (iohexol) nonionic water-soluble contrast as a cumulative dose for multiple exams. Multiplanar reconstruction was performed in the sagittal and co keegan planes. Using automated exposure control and adjustment of the mA and/or kV according to patie nt size, radiation dose was kept as low as reasonably achievable to obtain optimal diagnostic quality images. FINDINGS: Ill-defined superficial soft tissue edema of the anterior aspect of the left lower leg. The most conf luent area of fluid density is seen anteriorly at the level the mid calf measuring 4.0 x 0.7 cm. Diff use muscular edema of the anterior compartment. No peripherally enhancing organized fluid collections identified. No gas is seen in the soft tissues. No foreign bodies identified. No evidence of focal bone erosion. No abnormal periosteal reaction. No evidence of fracture. Bone ali gnment within normal limits. The major arteries of the lower leg are intact. CONCLUSION: 1. Extensive superficial soft tissue edema of the lower leg with extension into the deep soft tissue s of the anterior muscular compartment. No defined peripherally enhancing fluid collection. Possible early subcutaneous abscess formation anteriorly at the level the mid tibia shaft. 2. No evidence of focal bone erosion or abnormal periosteal reaction. Electronically signed by: Desmond Melton MD 09/10/2017 2:52 AM EDT
--- NOTE | 2017-09-10 03:01 | RADRPT ---
EXAM DATE: 09/10/2017 2:42 AM EDT AGE/SEX: 32 years / Female INDICATIONS: Leg pain. CLINICAL DATA: This is the patient's initial encounter. Patient reports that signs and symptoms have been present for 1 day and indicates a pain score of 5/10. MEDICAL/SURGICAL HISTORY: . substance use. None. RADIATION DOSE: 19.96 CTDI (mGy) ; Combined studies COMPARISON: No prior exams available for comparison. TECHNIQUE: Multiple contiguous axial images were acquired using a multirow detector CT scanner after the intravenous administration of 75 ml Omnipaque 350 (iohexol) nonionic water-soluble contrast as a cumulative dose for multiple exams. Multiplanar reconstruction was performed in the sagittal and co keegan planes. Using automated exposure control and adjustment of the mA and/or kV according to patie nt size, radiation dose was kept as low as reasonably achievable to obtain optimal diagnostic quality images. FINDINGS: Multiple prominent inguinal lymph nodes on the left measuring up to 2.4 x 1.7 cm. Enlarged iliac lymp h nodes also noted on the left measuring up to 3.0 x 1.3 cm. There is mild superficial soft tissue edema anteriorly and medially at the mid to distal thigh. No or ganized peripherally enhancing fluid collection. Soft tissue edema is more prominent in the lower leg with involvement of the muscles of the anterior compartment of the lower leg (anterior tibialis, ext ensor digitorum longus, and extensor hallucis longus) diffusely. Neurovascular structures are intact. No evidence of focal bone erosion. No evidence of fracture. No abnormal periosteal reaction. Bone ali gnment within normal limits. No evidence of joint narrowing. No evidence of knee joint effusion. CONCLUSION: 1. Severe superficial soft tissue edema of the lower leg below the knee with diffuse muscular edema of the anterior compartment suggesting myositis. No organized peripherally enhancing fluid collection identified. Mild superficial soft tissue edema of the anterior thigh. No evidence of muscular involv ement in the thigh. 2. Osseous structures within normal limits. 3. Nonspecific enlarged inguinal and iliac lymph nodes on the left. Electronically signed by: Desmond Melton MD 09/10/2017 2:59 AM EDT
[2017-09-10] MEDS: SODIUM CHLOR 0.9% 1000 ML INJ 1,000 ML IV SCH ×3 (04:07→21:17)
--- NOTE | 2017-09-10 04:24 | HHI.HP ---
[facility] Primary Care Physician No Primary Care Physician Admission Diagnosis sepsis; LLE cellulitis; IVDA/substance abuse Diagnoses: Travel History International Travel<30 Days: No Contact w/Intl Traveler <30 Da: No Traveled to Known Affected Are: No History of Present Illness 32-year-old female with a past medical history significant for polysubstance abuse presents to the emergency department for evaluation of left lower extremity pain and swelling. She states that the symptoms have been going on for the past few days. During the time of our interview, the patient is sleeping. Per emergency department documentation she denies any chest pain or shortness of breath. She does not know whether she had any fevers or chills. Remainder of the history is unable to be obtained at this time secondary to patient's clinical condition. Review of Systems Unable to obtain secondary to patient's clinical condition Past Family Social History Past Medical History None Past Surgical History None Reported Medications Reported Meds & Active Scripts Active No Active Prescriptions or Reported Medications Allergies: Coded Allergies: No Known Allergies (Verified Adverse Reaction, Unknown, 09/09/17) Family History Negative for CAD/DM Social History Per medical record review, the patient smokes cocaine and marijuana and uses heroin intravenously approximately 3 times daily. Physical Exam Vital Signs Vital Signs Date Time Temp Pulse Resp B/P (MAP) Pulse Ox O2 Delivery O2 Flow Rate FiO2 09/10/17 04:00 101.3 112 102/55 (71) 98 09/10/17 03:55 Nasal Cannula 2.00 09/10/17 02:43 101.5 09/10/17 00:30 96 Nasal Cannula 2.00 09/10/17 00:30 102.9 132 24 126/59 (81) 96 Nasal Cannula 2.00 09/09/17 23:00 132 24 157/80 (105) 09/09/17 22:45 99 Room Air 09/09/17 22:45 99 Room Air 09/09/17 22:30 128 16 166/74 (104) 96 Room Air 09/09/17 22:11 102.6 139 17 132/65 (87) 100 Physical Exam GENERAL: Disheveled female sleeping in bed SKIN: Left lower extremity with redness and swelling. There is an anterior rice ulceration that is 7 x 7 cm. Neurovascularly intact. HEAD: Atraumatic. Normocephalic. No temporal or scalp tenderness. EYES: Pupils equal round and reactive. Extraocular motions intact. No scleral icterus. No injection or drainage. ENT: Nose without bleeding, purulent drainage or septal hematoma. Throat without erythema, tonsillar hypertrophy or exudate. Uvula midline. Airway patent. NECK: Trachea midline. No JVD or lymphadenopathy. Supple, nontender, no meningeal signs. CARDIOVASCULAR: Regular rate and rhythm without murmurs, gallops, or rubs. RESPIRATORY: Clear to auscultation. Breath sounds equal bilaterally. No wheezes , rales, or rhonchi. GASTROINTESTINAL: Abdomen soft, non-tender, nondistended. No hepato-splenomegaly , or palpable masses. No guarding. MUSCULOSKELETAL: Left lower extremity as above NEUROLOGICAL: Awake and alert. Cranial nerves II through XII intact. Motor and sensory grossly within normal limits. Normal speech. Laboratory Laboratory Tests Test 09/09/17 22:30 09/09/17 22:40 09/10/17 00:46 Lactic Acid Level 1.0 White Blood Count 19.7 Red Blood Count 3.78 Hemoglobin 10.1 Hematocrit 30.2 Mean Corpuscular Volume 79.9 Mean Corpuscular Hemoglobin 26.8 Mean Corpuscular Hemoglobin Concent 33.5 Red Cell Distribution Width 17.4 Platelet Count 457 Mean Platelet Volume 7.2 Neutrophils (%) (Auto) 86.7 Lymphocytes (%) (Auto) 6.4 Monocytes (%) (Auto) 6.5 Eosinophils (%) (Auto) 0.1 Basophils (%) (Auto) 0.3 Neutrophils # (Auto) 17.1 Lymphocytes # (Auto) 1.3 Monocytes # (Auto) 1.3 Eosinophils # (Auto) 0.0 Basophils # (Auto) 0.1 CBC Comment AUTO DIFF Differential Total Cells Counted 100 Neutrophils % (Manual) 86 Band Neutrophils % 7 Lymphocytes % 4 Monocytes % 3 Neutrophils # (Manual) 18.3 Differential Comment FINAL DIFF MANUAL Toxic Granulation 2+ Platelet Estimate HIGH Platelet Morphology Comment NORMAL Prothrombin Time 11.3 Prothromb Time International Ratio 1.1 Activated Partial Thromboplast Time 36.5 Blood Urea Nitrogen 9 Creatinine 0.83 Random Glucose 83 Total Protein 7.6 Albumin 3.0 Calcium Level 7.9 Magnesium Level 1.5 Alkaline Phosphatase 107 Aspartate Amino Transf (AST/SGOT) 33 Alanine Aminotransferase (ALT/SGPT) 33 Total Bilirubin 0.7 Sodium Level 134 Potassium Level 3.1 Chloride Level 99 Carbon Dioxide Level 22.0 Anion Gap 13 Estimat Glomerular Filtration Rate 80 Troponin I LESS THAN 0.02 Lipase 31 Ethyl Alcohol Level LESS THAN 3 Urine Color YELLOW Urine Turbidity CLEAR Urine pH 6.5 Urine Specific [place] 1.031 Urine Protein 100 Urine Glucose (UA) NEG Urine Ketones NEG Urine Occult Blood NEG Urine Nitrite NEG Urine Bilirubin NEG Urine Urobilinogen 2.0 Urine Leukocyte Esterase MOD Urine RBC 3 Urine WBC 6 Urine Squamous Epithelial Cells 1 Microscopic Urinalysis Comment CATH-CULT NOT IND Urine Opiates Screen POS Urine Barbiturates Screen NEG Urine Amphetamines Screen POS Urine Benzodiazepines Screen NEG Urine Cocaine Screen POS Urine Cannabinoids Screen NEG Date/Time Source Procedure Growth Status 09/09/17 22:40 Blood Peripheral Aerobic Blood Culture Pending Received 09/09/17 22:40 Blood Peripheral Anaerobic Blood Culture Pending Received 09/09/17 22:40 Wound Leg Gram Stain Pending Received 09/09/17 22:40 Wound Leg Wound Culture Pending Received Result Diagram: 09/09/17223909/09/172239 Caprini VTE Risk Assessment Caprini VTE Risk Assessment: No/Low Risk (score <= 1) Caprini Risk Assessment Model Point Value = 1 Point Value = 2 Point Value = 3 Point Value = 5 Age 41-60 Minor surgery BMI > 25 kg/m2 Swollen legs Varicose veins or History of unexplained or recurrent spontaneous Oral contraceptives or hormone replacement Sepsis (< 1 month) Serious lung disease, including pneumonia (< 1 month) Abnormal pulmonary function Acute myocardial infarction Congestive heart failure (< 1 month) History of inflammatory bowel disease Medical patient at bed rest Age 61-74 Arthroscopic surgery Major open surgery (> 45 min) Laparoscopic surgery (> 45 min) Malignancy Confined to bed (> 72 hours) Immobilizing plaster cast Central venous access Age >= 75 History of VTE Family history of VTE Factor V Leiden Prothrombin [id number] Lupus anticoagulant Anticardiolipin antibodies Elevated serum homocysteine Heparin-induced thrombocytopenia Other congenital or acquired thrombophilia Stroke (< 1 month) Elective arthroplasty Hip, pelvis, or leg fracture Acute spinal cord injury (< 1 month) Prophylaxis Regimen Total Risk Factor Score Risk Level Prophylaxis Regimen 0-1 Low Early ambulation 2 Moderate Order ONE of the following: *Sequential Compression Device (SCD) *Heparin 5000 units SQ BID 3-4 Higher Order ONE of the following medications: *Heparin 5000 units SQ TID *Enoxaparin/Lovenox 40 mg SQ daily (WT < 150 kg, CrCl > 30 mL/min) *Enoxaparin/Lovenox 30 mg SQ daily (WT < 150 kg, CrCl > 10-29 mL/min) *Enoxaparin/Lovenox 30 mg SQ BID (WT < 150 kg, CrCl > 30 mL/min) AND/OR *Sequential Compression Device (SCD) 5 or more Highest Order ONE of the following medications: *Heparin 5000 units SQ TID (Preferred with Epidurals) *Enoxaparin/Lovenox 40 mg SQ daily (WT < 150 kg, CrCl > 30 mL/min) *Enoxaparin/Lovenox 30 mg SQ daily (WT < 150 kg, CrCl > 10-29 mL/min) *Enoxaparin/Lovenox 30 mg SQ BID (WT < 150 kg, CrCl > 30 mL/min) AND *Sequential Compression Device (SCD) Assessment and Plan Assessment and Plan Assessment/plan: 1. Left lower extremity cellulitis/sepsis Patient with leukocytosis, fever, tachycardia CT of the left lower extremity shows extensive superficial soft tissue edema of the lower leg with extension into the deep soft tissues of the anterior muscular compartment and possible early subcutaneous abscess formation at the level of the mid tibia shaft Vancomycin/Zosyn Infectious disease consulted, appreciate assistance 2. Polysubstance abuse Patient will need cessation counseling once responsive 3. Hypokalemia IV repletion Monitor BMP FEN N.p.o. NS at 100 cc/hour Electrolytes: As above Physician Certification 2 Midnight Certification Type: Admission for Inpatient Services Order for Inpatient Services The services are ordered in accordance with Medicare regulations or non- Medicare payer requirements, as applicable. In the case of services not specified as inpatient-only, they are appropriately provided as inpatient services in accordance with the 2-midnight benchmark. Estimated LOS (days): 2 2 days is the estimated time the patient will need to remain in the hospital, assuming treatment plan goals are met and no additional complications. Post-Hospital Plan: Not yet determined Leslie Patrick MD Sep 10, 2017 04:24
[2017-09-10] MEDS ORDERED: ACETAMINOPHEN 650 MG SUPP RECTAL ONE (04:30)
[2017-09-10] MEDS ORDERED: ACETAMINOPHEN 650 MG SUPP RECTAL PRN (06:45)
[2017-09-10] MEDS: PIPERACIL-TAZO 3.375 GM PREMIX 50 ML IV SCH ×4 (07:21→22:33)
[2017-09-10 08:14] LABS: AUTOMATED NEUTROPHIL # 12.2 TH/MM3 (1.8-7.7); BASOPHIL % 0.3 % (0.0-2.0); EOSINOPHIL % 0.2 % (0.0-4.0); HEMATOCRIT 26.1 % (35.0-46.0); HEMOGLOBIN 9.1 GM/DL (11.6-15.3); LYMPHOCYTE # 0.8 TH/MM3 (1.0-4.8); MEAN CELL VOLUME 80.1 FL (80.0-100.0); MEAN PLATELET VOLUME 7.1 FL (7.0-11.0); MONO % 6.1 % (0.0-8.0); MONOCYTE # 0.8 TH/MM3 (0-0.9); NEUT % 87.4 % (16.0-70.0); PLATELET COUNT 336 TH/MM3 (150-450); RED BLOOD COUNT 3.25 MIL/MM3 (4.00-5.30); RED CELL DISTRIBUTION WIDTH 17.5 % (11.6-17.2)
[2017-09-10] MEDS: SODIUM CHLORIDE 0.9% FLUSH 10 ML FLUSH IV FLUSH SCH ×2 (08:18→21:00)
[2017-09-10 08:51] LABS: BICARBONATE 21.5 MEQ/L (21.0-32.0); CALCIUM 7.3 MG/DL (8.5-10.1); CREATININE 0.67 MG/DL (0.50-1.00)
[2017-09-10 09:11] LABS: TOXIC GRANULATION 1+ (NORMAL)
[2017-09-10 09:28] LABS: CALCIUM-PROTEIN CORRECTED 7.8 MG/DL (8.5-10.1); TOTAL PROTEIN 6.1 GM/DL (6.4-8.2)
[2017-09-10] MEDS ORDERED: POTASSIUM CHLORIDE 10 MEQ CONTROLLED RELEASE TAB PO ONE (11:15)
[2017-09-10] MEDS: POTASSIUM CHLOR 20 MEQ PREMIX 100 ML IV SCH ×4 (11:45→17:45)
--- NOTE | 2017-09-10 11:49 | HHI.PR ---
Subjective Remarks Patient is very lethargic Able to answer upon calling her name. Febrile and hypotensive. Objective Vitals Vital Signs Date Time Temp Pulse Resp B/P (MAP) Pulse Ox O2 Delivery O2 Flow Rate FiO2 09/10/17 10:22 96 Nasal Cannula 2.00 09/10/17 08:30 110 22 89/54 (66) 95 09/10/17 08:20 99.9 09/10/17 06:35 101.9 114 89/53 (65) 94 09/10/17 04:00 101.3 112 22 102/55 (71) 98 09/10/17 03:55 Nasal Cannula 2.00 09/10/17 02:43 101.5 09/10/17 00:30 96 Nasal Cannula 2.00 09/10/17 00:30 102.9 132 24 126/59 (81) 96 Nasal Cannula 2.00 09/09/17 23:00 132 24 157/80 (105) 09/09/17 22:45 99 Room Air 09/09/17 22:45 99 Room Air 09/09/17 22:30 128 16 166/74 (104) 96 Room Air 09/09/17 22:11 102.6 139 17 132/65 (87) 100 I/O 09/09/17 09/09/17 09/09/17 09/10/17 09/10/17 09/10/17 07:00 15:00 23:00 07:00 15:00 23:00 Intake Total 1900 ml Balance 1900 ml Intake IV Total 1900 ml # Voids 1 Result Diagram: 09/10/17 0758 09/10/17 0758 Imaging Last Impressions Lower Extremity CT 09/10/17 0000 Signed Impressions: CONCLUSION: 1. Severe superficial soft tissue edema of the lower leg below the knee with d iffuse muscular edema of the anterior compartment suggesting myositis. No organ ized peripherally enhancing fluid collection identified. Mild superficial soft tissue edema of the anterior thigh. No evidence of muscular involvement in the thigh. 2. Osseous structures within normal limits. 3. Nonspecific enlarged inguinal and iliac lymph nodes on the left. Head CT 09/10/17 0000 Signed Impressions: CONCLUSION: No acute intracranial findings. Chest X-Ray 09/09/17 2231 Signed Impressions: CONCLUSION: Motion degraded exam grossly negative. Tibia/Fibula X-Ray 09/09/17 Signed Impressions: CONCLUSION: No evidence of fracture or focal bone erosion. Lower Extremity Ultrasound 09/09/17 Signed Impressions: CONCLUSION: No evidence of left lower extremity DVT. Objective Remarks GENERAL: lethargic but arousable. Looks very ill and toxic SKIN: Left lower extremity with redness and swelling. There is an anterior rice ulceration that is 7 x 7 cm. Neurovascularly intact. Several dry scabs over face. HEAD: Normocephalic. EYES: No scleral icterus. No injection or drainage. NECK: Supple, trachea midline. No JVD or lymphadenopathy. CARDIOVASCULAR: Regular rate and rhythm without murmurs, gallops, or rubs. RESPIRATORY: Breath sounds equal bilaterally. No accessory muscle use. GASTROINTESTINAL: Abdomen soft, non-tender, nondistended. MUSCULOSKELETAL: No cyanosis, or edema. BACK: Nontender without obvious deformity. No CVA tenderness. A/P Problem List: (1) Sepsis affecting skin ICD Code: A41.9 - Sepsis, unspecified organism Status: Acute Plan: The specimen admission patient with leukocytosis, fever, tachycardia and cellulitis of the right lower extremity. CT of the lower extremity showed extensive superficial soft tissue edema of the lower leg with extension into deep soft tissues of the anterior muscular compartment and possible early cutaneous abscess formation at the level of the mid tibia shaft. I will consult general surgery for further recommendations regarding possible debridement. ID consulted, recommendations pending. Roger IV fluids Blood cultures negative 1 Wound culture pending. Wound wound care consultation. (2) Cellulitis and abscess of left lower extremity ICD Code: L03.116 - Cellulitis of left lower limb; L02.416 - Cutaneous abscess of left lower limb Status: Acute Plan: As above (3) IVDU (intravenous drug user) ICD Code: F19.90 - Other psychoactive substance use, unspecified, uncomplicated Status: Acute Plan: Urine drug screen positive for urine opiates, amphetamines, benzodiazepines. (4) Hypotension ICD Code: I95.9 - Hypotension, unspecified Plan: Due to sepsis secondary to right lower extremity cellulitis and possible abscess. I will give a bolus of 1 L normal saline. Continue maintenance IV fluids with normal saline at 100 cc an hour. (5) Metabolic encephalopathy ICD Code: G93.41 - Metabolic encephalopathy Status: Acute Plan: Due to sepsis secondary to right lower extremity cellulitis and possible abscess formation. Patient very lethargic on exam. Monitor neuro checks every 4 hours. (6) Hypokalemia ICD Code: E87.6 - Hypokalemia Plan: Severe hypokalemia likely due to decreased oral intake. Replace with IV potassium chloride. Speech therapy evaluation. Assessment and Plan Lovenox for DVT prophylaxis. Placed on PPI for GI prophylaxis. 35 minutes spent on critical care time. Discharge Planning Continue to monitor the medical floor. If the patient continues to be hypotensive then will transfer to the intensive care unit. Problem Qualifiers (1) Hypotension: Qualified Codes: I95.9 - Hypotension, unspecified Juan Dominguez MD Sep 10, 2017 11:49
[2017-09-10] MEDS ORDERED: ONDANSETRON HCL 4 MG/2 ML VIAL IV PUSH ONE (12:00)
[2017-09-10] MEDS ORDERED: PROPOFOL 200 MG/20 ML AMP IV ONE (12:00)
[2017-09-10] MEDS ORDERED: GLYCOPYRROLATE 1 MG/5 ML SYRINGE IV PUSH ONE (12:00)
[2017-09-10] MEDS ORDERED: ROCURONIUM INJ 100 MG/10 ML VIAL IV ONE (12:00)
[2017-09-10] MEDS ORDERED: POTASSIUM CHLOR 20 MEQ PREMIX 100 ML IV SCH (12:00)
[2017-09-10] MEDS ORDERED: NEOSTIGMINE 5 MG/5 ML SYRINGE IV PUSH ONE (12:00)
[2017-09-10] MEDS ORDERED: LIDOCAINE HCL 1% PF 5 ML SYRINGE OTHER ONE (12:00)
--- NOTE | 2017-09-10 13:11 | PD.CONS ---
History of Present Illness Service Infectious disease Consult Requested By Dr. Patrick Reason for Consult Evaluate patient with left lower extremity cellulitis and possible sepsis Primary Care Physician No Primary Care Physician Diagnoses: History of Present Illness Patient seen and examined. Records reviewed. Patient is lethargic and unable to give any history. Patient is a 32-year-old female, presented to the hospital complaining of several day history of pain and swelling on her left lower extremity. 1 of the record had mentioned that she had some ant bites. She has no polysubstance abuse, and her drug screen was positive for opiates, amphetamines, cocaine. Since admission she has been febrile. Her white count elevated at 19,000. She is also tachycardic. Imaging study of the left lower extremity has shown evidence of cellulitis, and possibly beginning abscess on her anterior shaft, and there is also finding of swelling of the anterior muscles of her left leg. She is currently on vancomycin IV and Zosyn IV. Ultrasound did not show any evidence of DVT. CT of the head is also negative for any bleed or acute finding. Infectious disease consultation has been requested to evaluate the patient with left lower extremity cellulitis, and possible sepsis Review of Systems ROS Limitations: Clinical Condition, Altered Mental Status Constitutional: COMPLAINS OF: Fever, Chills Cardiovascular: COMPLAINS OF: Lower Extremity Edema Integumentary: COMPLAINS OF: Rash Past Family Social History Allergies: Coded Allergies: No Known Allergies (Verified Adverse Reaction, Unknown, 09/09/17) Past Medical History Polysubstance abuse Past Surgical History Previous and delivery Inguinal hernia surgery Active Ordered Medications Current Medications Medications (Trade) Dose Ordered Sig/Christophe Route Start Time Stop Time Status Last Admin Piperacillin Sod/ Tazobactam Sod 50 ml @ 100 mls/hr Q6H IV 09/10/17 05:00 09/10/17 11:10 Sodium Chloride 1,000 ml @ 100 mls/hr Q10H IV 09/10/17 02:12 09/10/17 11:11 (NS Flush) 2 ml UNSCH PRN IV FLUSH 09/10/17 02:15 (NS Flush) 2 ml BID IV FLUSH 09/10/17 09:00 (Tylenol) 650 mg Q4H PRN PO 09/10/17 02:15 (Narcan Inj) 0.4 mg UNSCH PRN IV PUSH 09/10/17 02:15 (Ativan Inj) 1 mg Q4H PRN IV PUSH 09/10/17 02:15 (Tylenol Supp) 650 mg Q6H PRN RECTAL 09/10/17 06:45 Potassium Chloride 100 ml @ 50 mls/hr Q2H IV 09/10/17 12:00 09/10/17 15:59 Pharmacy Profile Note 0 ml @ 0 mls/hr UNSCH OTHER 09/10/17 11:30 Potassium Chloride 100 ml @ 50 mls/hr Q2H IV 09/10/17 11:45 09/10/17 15:44 Family History Not known Social History Smoker There is mention of alcohol use History of polysubstance abuse, including IV drug use, drug screen currently positive for cocaine, amphetamines, and opiates Physical Exam Vital Signs Vital Signs Date Time Temp Pulse Resp B/P (MAP) Pulse Ox O2 Delivery O2 Flow Rate FiO2 09/10/17 12:00 99.9 105 22 91/53 (66) 100 09/10/17 10:22 96 Nasal Cannula 2.00 09/10/17 08:30 110 22 89/54 (66) 95 09/10/17 08:20 99.9 09/10/17 06:35 101.9 114 89/53 (65) 94 09/10/17 04:00 101.3 112 22 102/55 (71) 98 09/10/17 03:55 Nasal Cannula 2.00 09/10/17 02:43 101.5 09/10/17 00:30 96 Nasal Cannula 2.00 09/10/17 00:30 102.9 132 24 126/59 (81) 96 Nasal Cannula 2.00 09/09/17 23:00 132 24 157/80 (105) 09/09/17 22:45 99 Room Air 09/09/17 22:45 99 Room Air 09/09/17 22:30 128 16 166/74 (104) 96 Room Air 09/09/17 22:11 102.6 139 17 132/65 (87) 100 Physical Exam GENERAL: Patient is a well-nourished, well-developed female, lethargic, occasionally answers my question, but asleep most of the time, looks unkempt, not in respiratory distress. SKIN: Warm and dry. Has skin lesions on face and RUE with eschar. No ecchymoses HEAD: Atraumatic. Normocephalic. No temporal wasting, or tenderness. EYES: [place] conjunctiva. No petechia or hemorrhage. Pupils equal, round and reactive to light. No scleral icterus. No injection or drainage. EARS, NOSE AND THROAT: Nose without bleeding or purulent nasal discharge. No sinus tenderness. Dry oral mucosa. Has lesions on face with eschar NECK: Trachea midline. Supple and not tender, no meningeal signs CARDIOVASCULAR: Regular rate and rhythm. Tachycardic. No murmurs, rubs or gallops heard RESPIRATORY: Clear to auscultation. Breath sounds equal bilaterally. No rales , wheezing or rhonchi. Decreased breath sounds at bases ABDOMEN: Soft, non-tender, nondistended. Bowel sounds present and normoactive. No guarding. No rebound. No organomegaly. EXTREMITIES: No clubbing, cyanosis. LLE larger compared to the RLE. There is erythema on her L leg, and there is a fluctuant lesion on anterior leg that is about 1.5 inc h diameter and has surrounding areas of superficial ulceration with some crusting, no odor. Has LN L groin. No calf tenderness. Well perfused and warm. NEUROLOGICAL: Lethargic, answers some questions at times, no Babinski or clonus PSYCHIATRIC: Unable to assess LINE: No evidence of infection Laboratory Laboratory Tests Test 09/09/17 22:30 09/09/17 22:40 09/10/17 00:46 09/10/17 07:58 Lactic Acid Level 1.0 White Blood Count 19.7 14.0 Red Blood Count 3.78 3.25 Hemoglobin 10.1 9.1 Hematocrit 30.2 26.1 Mean Corpuscular Volume 79.9 80.1 Mean Corpuscular Hemoglobin 26.8 28.0 Mean Corpuscular Hemoglobin Concent 33.5 35.0 Red Cell Distribution Width 17.4 17.5 Platelet Count 457 336 Mean Platelet Volume 7.2 7.1 Neutrophils (%) (Auto) 86.7 87.4 Lymphocytes (%) (Auto) 6.4 6.0 Monocytes (%) (Auto) 6.5 6.1 Eosinophils (%) (Auto) 0.1 0.2 Basophils (%) (Auto) 0.3 0.3 Neutrophils # (Auto) 17.1 12.2 Lymphocytes # (Auto) 1.3 0.8 Monocytes # (Auto) 1.3 0.8 Eosinophils # (Auto) 0.0 0.0 Basophils # (Auto) 0.1 0.0 CBC Comment AUTO DIFF AUTO DIFF Differential Total Cells Counted 100 Neutrophils % (Manual) 86 Band Neutrophils % 7 Lymphocytes % 4 Monocytes % 3 Neutrophils # (Manual) 18.3 Differential Comment FINAL DIFF MANUAL AUTO DIFF CONFIRMED Toxic Granulation 2+ 1+ Platelet Estimate HIGH NORMAL Platelet Morphology Comment NORMAL NORMAL Prothrombin Time 11.3 Prothromb Time International Ratio 1.1 Activated Partial Thromboplast Time 36.5 Blood Urea Nitrogen 9 6 Creatinine 0.83 0.67 Random Glucose 83 80 Total Protein 7.6 6.1 Albumin 3.0 Calcium Level 7.9 7.3 Magnesium Level 1.5 Alkaline Phosphatase 107 Aspartate Amino Transf (AST/SGOT) 33 Alanine Aminotransferase (ALT/SGPT) 33 Total Bilirubin 0.7 Sodium Level 134 139 Potassium Level 3.1 2.9 Chloride Level 99 107 Carbon Dioxide Level 22.0 21.5 Anion Gap 13 11 Estimat Glomerular Filtration Rate 80 102 Troponin I LESS THAN 0.02 Lipase 31 Ethyl Alcohol Level LESS THAN 3 Urine Color YELLOW Urine Turbidity CLEAR Urine pH 6.5 Urine Specific [place] 1.031 Urine Protein 100 Urine Glucose (UA) NEG Urine Ketones NEG Urine Occult Blood NEG Urine Nitrite NEG Urine Bilirubin NEG Urine Urobilinogen 2.0 Urine Leukocyte Esterase MOD Urine RBC 3 Urine WBC 6 Urine Squamous Epithelial Cells 1 Microscopic Urinalysis Comment CATH-CULT NOT IND Urine Opiates Screen POS Urine Barbiturates Screen NEG Urine Amphetamines Screen POS Urine Benzodiazepines Screen NEG Urine Cocaine Screen POS Urine Cannabinoids Screen NEG Protein Corrected Calcium 7.8 Date/Time Source Procedure Growth Status 09/09/17 22:40 Blood Peripheral Aerobic Blood Culture - Preliminary NO GROWTH IN 1 DAY Resulted 09/09/17 22:40 Blood Peripheral Anaerobic Blood Culture - Preliminary NO GROWTH IN 1 DAY Resulted 09/09/17 22:40 Wound Leg Gram Stain - Final Resulted 09/09/17 22:40 Wound Leg Wound Culture Pending Resulted Result Diagram: 09/10/17 0758 09/10/17 0758 Imaging RADIOLOGY STUDIES/FILMS REVIEWED Lower Extremity CT 09/10/17 0000 Signed Impressions: CONCLUSION: 1. Severe superficial soft tissue edema of the lower leg below the knee with d iffuse muscular edema of the anterior compartment suggesting myositis. No organ ized peripherally enhancing fluid collection identified. Mild superficial soft tissue edema of the anterior thigh. No evidence of muscular involvement in the thigh. 2. Osseous structures within normal limits. 3. Nonspecific enlarged inguinal and iliac lymph nodes on the left. Head CT 09/10/17 0000 Signed Impressions: CONCLUSION: No acute intracranial findings. Chest X-Ray 09/09/17 2231 Signed Impressions: CONCLUSION: Motion degraded exam grossly negative. Tibia/Fibula X-Ray 09/09/17 0000 Signed Impressions: CONCLUSION: No evidence of fracture or focal bone erosion. Lower Extremity Ultrasound 09/09/17 0000 Signed Impressions: CONCLUSION: No evidence of left lower extremity DVT. Assessment and Plan Assessment and Plan IMPRESSION Sepsis on admission due to LLE infection LLE cellulitis with myositis and possible abscess Encephalopathy due to drugs and sepsis Known polysubstance abuse including IVDU, UDE (+) opiates, cocaine and amphetamines RECOMMENDATION Follow C/S Surgery evaluating the left leg Continue Vancomycin Continue Zosyn Follow temps Monitor progress I will follow along with you Thank you for this consultation Discussed Condition With D/W RN Spoke with Nithin CAGLE (Surgery) - trying to find relative to get consent for debridement Shannan Hudson MD Sep 10, 2017 13:11
[2017-09-10] MEDS ORDERED: VANCOMYCIN INJ 1,250 MG in SODIUM CHLOR 0.9% 250 ML INJ 250 ML IV ONE (13:15)
[2017-09-10] MEDS ORDERED: VANCOMYCIN INJ 1,000 MG in SODIUM CHLOR 0.9% 250 ML INJ 250 ML IV SCH (15:00)
--- NOTE | 2017-09-10 15:19 | PD.CONS ---
cc: Bg Schmidt MD [facility] Service CONSULTATION NOTE FOR SURGICAL ATTENDING, DR. BG SCHMIDT General Surgery Consult Requested By Dr. Veloz Reason for Consult LEFT leg wound Primary Care Physician No Primary Care Physician History of Present Illness This is a 32 year old female who is quite lethargic and difficult to arouse who presented to the ED overnight with a LEFT leg wound. Per reports from the ED, her boyfriend dropped her off and that the wound was first noticed about three days ago. Her living conditions are unknown. It is unknown if she had any trauma to the area. A CT of the leg was completed which shows a quite extensive inflammatory process. Her WBC is elevated. She has been febrile, tachycardic and hypotensive. A General Surgery consult has been requested. Review of Systems ROS Limitations: Clinical Condition, Altered Mental Status, Uncooperative Past Family Social History Past Medical History Unknown Past Surgical History Unknown Reported Medications Unknown Allergies: Coded Allergies: No Known Allergies (Verified Adverse Reaction, Unknown, 09/09/17) Active Ordered Medications Current Medications Medications (Trade) Dose Ordered Sig/Christophe Route Start Time Stop Time Status Last Admin Piperacillin Sod/ Tazobactam Sod 50 ml @ 100 mls/hr Q6H IV 09/10/17 05:00 09/10/17 11:10 Sodium Chloride 1,000 ml @ 100 mls/hr Q10H IV 09/10/17 02:12 09/10/17 11:11 (NS Flush) 2 ml UNSCH PRN IV FLUSH 09/10/17 02:15 (NS Flush) 2 ml BID IV FLUSH 09/10/17 09:00 (Tylenol) 650 mg Q4H PRN PO 09/10/17 02:15 (Narcan Inj) 0.4 mg UNSCH PRN IV PUSH 09/10/17 02:15 (Ativan Inj) 1 mg Q4H PRN IV PUSH 09/10/17 02:15 (Tylenol Supp) 650 mg Q6H PRN RECTAL 09/10/17 06:45 Pharmacy Profile Note 0 ml @ 0 mls/hr UNSCH OTHER 09/10/17 11:30 Potassium Chloride 100 ml @ 50 mls/hr Q2H IV 09/10/17 11:45 09/10/17 19:44 09/10/17 11:45 Vancomycin HCl 700 mg/Sodium Chloride 257 ml @ 250 mls/hr Q8H IV 09/10/17 21:00 [place] [place] SPECIFIC LAB TO BE ... ONCE ONCE .XX 09/11/17 12:45 09/11/17 12:46 Family History Unknown Social History Per reports she is a poly substance abuser. She has had multiple visits over the last few years for polysubstance overdose. Physical Exam Vital Signs Vital Signs Date Time Temp Pulse Resp B/P (MAP) Pulse Ox O2 Delivery O2 Flow Rate FiO2 09/10/17 15:17 2.00 09/10/17 12:00 99.9 105 22 91/53 (66) 100 09/10/17 10:22 96 Nasal Cannula 2.00 09/10/17 08:30 110 22 89/54 (66) 95 09/10/17 08:20 99.9 09/10/17 06:35 101.9 114 89/53 (65) 94 09/10/17 04:00 101.3 112 22 102/55 (71) 98 09/10/17 03:55 Nasal Cannula 2.00 09/10/17 02:43 101.5 09/10/17 00:30 96 Nasal Cannula 2.00 09/10/17 00:30 102.9 132 24 126/59 (81) 96 Nasal Cannula 2.00 09/09/17 23:00 132 24 157/80 (105) 09/09/17 22:45 99 Room Air 09/09/17 22:45 99 Room Air 09/09/17 22:30 128 16 166/74 (104) 96 Room Air 09/09/17 22:11 102.6 139 17 132/65 (87) 100 Physical Exam GENERAL: 32 year old lethargic with poor hygiene female who is quite disheveled looking resting in bed. SKIN: Areas of new and healing scabs on face, BUE and BLE. She had a large area of erythremia on her LEFT rice with an area of fluid felt in the middle; + edema HEAD: Atraumatic. Normocephalic. EYES: Pupils equal and round. No scleral icterus. No injection or drainage. ENT: No nasal bleeding or discharge. Mucous membranes dry. NECK: Trachea midline. CARDIOVASCULAR: Regular rate and rhythm. RESPIRATORY: No accessory muscle use. Clear to auscultation. Breath sounds equal bilaterally. GASTROINTESTINAL: Abdomen soft, non-tender, nondistended. MUSCULOSKELETAL: Extremities without clubbing, cyanosis, or edema. No obvious deformities. NEUROLOGICAL: Lethargic. PSYCHIATRIC: Unable to examine. Laboratory Laboratory Tests Test 09/09/17 22:30 09/09/17 22:40 09/10/17 00:46 09/10/17 07:58 Lactic Acid Level 1.0 White Blood Count 19.7 14.0 Red Blood Count 3.78 3.25 Hemoglobin 10.1 9.1 Hematocrit 30.2 26.1 Mean Corpuscular Volume 79.9 80.1 Mean Corpuscular Hemoglobin 26.8 28.0 Mean Corpuscular Hemoglobin Concent 33.5 35.0 Red Cell Distribution Width 17.4 17.5 Platelet Count 457 336 Mean Platelet Volume 7.2 7.1 Neutrophils (%) (Auto) 86.7 87.4 Lymphocytes (%) (Auto) 6.4 6.0 Monocytes (%) (Auto) 6.5 6.1 Eosinophils (%) (Auto) 0.1 0.2 Basophils (%) (Auto) 0.3 0.3 Neutrophils # (Auto) 17.1 12.2 Lymphocytes # (Auto) 1.3 0.8 Monocytes # (Auto) 1.3 0.8 Eosinophils # (Auto) 0.0 0.0 Basophils # (Auto) 0.1 0.0 CBC Comment AUTO DIFF AUTO DIFF Differential Total Cells Counted 100 Neutrophils % (Manual) 86 Band Neutrophils % 7 Lymphocytes % 4 Monocytes % 3 Neutrophils # (Manual) 18.3 Differential Comment FINAL DIFF MANUAL AUTO DIFF CONFIRMED Toxic Granulation 2+ 1+ Platelet Estimate HIGH NORMAL Platelet Morphology Comment NORMAL NORMAL Prothrombin Time 11.3 Prothromb Time International Ratio 1.1 Activated Partial Thromboplast Time 36.5 Blood Urea Nitrogen 9 6 Creatinine 0.83 0.67 Random Glucose 83 80 Total Protein 7.6 6.1 Albumin 3.0 Calcium Level 7.9 7.3 Magnesium Level 1.5 Alkaline Phosphatase 107 Aspartate Amino Transf (AST/SGOT) 33 Alanine Aminotransferase (ALT/SGPT) 33 Total Bilirubin 0.7 Sodium Level 134 139 Potassium Level 3.1 2.9 Chloride Level 99 107 Carbon Dioxide Level 22.0 21.5 Anion Gap 13 11 Estimat Glomerular Filtration Rate 80 102 Troponin I LESS THAN 0.02 Lipase 31 Ethyl Alcohol Level LESS THAN 3 Urine Color YELLOW Urine Turbidity CLEAR Urine pH 6.5 Urine Specific [place] 1.031 Urine Protein 100 Urine Glucose (UA) NEG Urine Ketones NEG Urine Occult Blood NEG Urine Nitrite NEG Urine Bilirubin NEG Urine Urobilinogen 2.0 Urine Leukocyte Esterase MOD Urine RBC 3 Urine WBC 6 Urine Squamous Epithelial Cells 1 Microscopic Urinalysis Comment CATH-CULT NOT IND Urine Opiates Screen POS Urine Barbiturates Screen NEG Urine Amphetamines Screen POS Urine Benzodiazepines Screen NEG Urine Cocaine Screen POS Urine Cannabinoids Screen NEG Protein Corrected Calcium 7.8 Date/Time Source Procedure Growth Status 09/09/17 22:40 Blood Peripheral Aerobic Blood Culture - Preliminary NO GROWTH IN 1 DAY Resulted 09/09/17 22:40 Blood Peripheral Anaerobic Blood Culture - Preliminary NO GROWTH IN 1 DAY Resulted 09/09/17 22:40 Wound Leg Gram Stain - Final Resulted 09/09/17 22:40 Wound Leg Wound Culture Pending Resulted Result Diagram: 09/10/17 0758 09/10/17 0758 Imaging Last 48 hours Impressions Lower Extremity CT 09/10/17 0000 Signed Impressions: CONCLUSION: 1. Severe superficial soft tissue edema of the lower leg below the knee with d iffuse muscular edema of the anterior compartment suggesting myositis. No organ ized peripherally enhancing fluid collection identified. Mild superficial soft tissue edema of the anterior thigh. No evidence of muscular involvement in the thigh. 2. Osseous structures within normal limits. 3. Nonspecific enlarged inguinal and iliac lymph nodes on the left. Lower Extremity CT 09/10/17 0000 Signed Impressions: CONCLUSION: 1. Extensive superficial soft tissue edema of the lower leg with extension int o the deep soft tissues of the anterior muscular compartment. No defined periph erally enhancing fluid collection. Possible early subcutaneous abscess formatio n anteriorly at the level the mid tibia shaft. 2. No evidence of focal bone erosion or abnormal periosteal reaction. Head CT 09/10/17 0000 Signed Impressions: CONCLUSION: No acute intracranial findings. Chest X-Ray 09/09/17 2231 Signed Impressions: CONCLUSION: Motion degraded exam grossly negative. Tibia/Fibula X-Ray 09/09/17 0000 Signed Impressions: CONCLUSION: No evidence of fracture or focal bone erosion. Lower Extremity Ultrasound 09/09/17 0000 Signed Impressions: CONCLUSION: No evidence of left lower extremity DVT. Assessment and Plan Assessment and Plan 32 year old female with polysubstance abuse; LEFT leg wound -Plan for incision and drainage of LEFT leg with possible Wound Vac placement with Dr. Schmidt for today -Obtain consents--- attempting to contact Mother -NPO -IVF -Continue to monitor labs -Will need to closely monitor for drug withdrawal -Thank you for this consult; We will continue to follow Discussed Condition With Dr. Brayan Dougherty Attending Statement CONSULTATION NOTE FOR SURGICAL ATTENDING, DR. BG SCHMIDT I agree with above assessment and plan. Patient seen and examined Patient still sleepy but appears understand the need to debride this abscess in her lower extremity I discussed with anesthesia and the procedure needs to be done The exam, history, and the medical decision-making described in the above note were completed with the assistance of the mid-level provider. I reviewed and agree with the findings presented. I attest that I had a [id number] encounter with the patient on the same day, and personally performed and documented my assessment and findings in the medical record. The following services were provided during this hospital visit: Chart data review, vital sign assessments/reviewing monitor data Review of consultations notes if present. Medication orders/review and/or management Ordering and/or reviewing lab tests Ordering and/or interpreting/reviewing x-rays and/or diagnostic studies Care of the patient and discussion of the patient with the care team Documentation time To help prompt me to consider important information that might be impacting today's encounter and assessment, Information from prior notes written by myself or my colleagues may have been "brought forward/copy and pasted" into today's note. Ileana Zapata/First Peng CAGLE Sep 10, 2017 15:19 Bg Schmidt MD Sep 10, 2017 19:44
--- NOTE | 2017-09-10 19:02 | EKG ---
Date Performed: 09/09/2017 Time Performed: 23:39:28 PTAGE: 32 years EKG: SINUS TACHYCARDIA INCOMPLETE RIGHT BUNDLE BRANCH BLOCK ST DEVIATION AND MODERATE T-WAVE ABN ORMALITY, CONSIDER ANTERIOR ISCHEMIA ABNORMAL ECG when compared to prior EKG,patient is now tachycard ic PREVIOUS TRACING :09/27/2016 @19.09 DOCTOR: Luna Ortega Interpretating Date/Time 09/10/2017 19:00:53
--- NOTE | 2017-09-10 20:39 | HHI.PR ---
cc: Bg Schmidt MD Immediate Post Op Note Procedure Date: Sep 10, 2017 Pre Op Diagnosis: (1) Abscess of left lower extremity Post Op Diagnosis: (1) Abscess of left lower extremity Surgeon: Bg Schmidt Infrastructure Design Engineer(s): Please refer to operating room records Procedure: Incision and drainage and irrigation and debridement of subcutaneous tissue fascia of left lower extremity anterior rice abscess 5 x 7 cm Placement of VAC device Culture of wound Findings: Necrotic skin and subcutaneous tissue and fascia which was sharply debrided with sharp knives and scissors Complications: None Specimen(s) removed: Devitalized skin subcutaneous tissue and fascia Anesthesia: General Drains: Other (VAC device applied) Patient to: PACU Patient Condition: Good Implant/Devices: SEE IMPLANT LOG (if applicable) Date/Time of Procedure: SEE SURGICAL CARE RECORD Bg Schmidt MD Sep 10, 2017 20:39
[2017-09-10] MEDS: VANCOMYCIN INJ 700 MG in SODIUM CHLOR 0.9% 250 ML INJ 250 ML IV SCH (21:00)
[2017-09-10] MEDS ORDERED: DO NOT ADM ANY ANTICOAGULANT DRUGS PRN (21:30)
[2017-09-11] VITALS (7 sets, daily range): BP systolic 101–115; BP diastolic 67–75; PULSE 71–106; RESP 16–35; TEMP 97.4–102.1; O2SAT 98–100
[2017-09-11] MEDS ORDERED: SODIUM CHLOR 0.9% 1000 ML INJ 1,000 ML IV ONE (02:15)
[2017-09-11] MEDS: PIPERACIL-TAZO 3.375 GM PREMIX 50 ML IV SCH ×4 (05:21→22:29)
[2017-09-11] MEDS: VANCOMYCIN INJ 700 MG in SODIUM CHLOR 0.9% 250 ML INJ 250 ML IV SCH ×2 (05:23→14:14)
[2017-09-11] MEDS: SODIUM CHLOR 0.9% 1000 ML INJ 1,000 ML IV SCH ×2 (05:23→16:29)
[2017-09-11] MEDS: SODIUM CHLORIDE 0.9% FLUSH 10 ML FLUSH IV FLUSH SCH ×2 (08:04→21:11)
--- NOTE | 2017-09-11 08:50 | HHI.PR ---
cc: Nupur Vela MD Subjective Subjective Notes DAILY PROGRESS NOTE FOR SURGICAL ATTENDING, DR. NUPUR VELA Patient still sleepy Awakens feels more comfortable Objective Vitals/I&O Vital Signs Date Time Temp Pulse Resp B/P (MAP) Pulse Ox O2 Delivery O2 Flow Rate FiO2 09/11/17 08:18 97.9 71 18 113/75 (88) 100 09/10/17 21:30 Nasal Cannula 2 Labs Date/Time Source Procedure Growth Status 09/09/17 22:40 Blood Peripheral Aerobic Blood Culture - Preliminary NO GROWTH IN 1 DAY Resulted 09/09/17 22:40 Blood Peripheral Anaerobic Blood Culture - Preliminary NO GROWTH IN 1 DAY Resulted 09/10/17 20:12 Wound Leg Gram Stain Pending Received 09/10/17 20:12 Wound Leg Wound Culture Pending Received Radiology Last 48 hours Impressions Lower Extremity CT 09/10/17 0000 Signed Impressions: CONCLUSION: 1. Severe superficial soft tissue edema of the lower leg below the knee with d iffuse muscular edema of the anterior compartment suggesting myositis. No organ ized peripherally enhancing fluid collection identified. Mild superficial soft tissue edema of the anterior thigh. No evidence of muscular involvement in the thigh. 2. Osseous structures within normal limits. 3. Nonspecific enlarged inguinal and iliac lymph nodes on the left. Lower Extremity CT 09/10/17 0000 Signed Impressions: CONCLUSION: 1. Extensive superficial soft tissue edema of the lower leg with extension int o the deep soft tissues of the anterior muscular compartment. No defined periph erally enhancing fluid collection. Possible early subcutaneous abscess formatio n anteriorly at the level the mid tibia shaft. 2. No evidence of focal bone erosion or abnormal periosteal reaction. Head CT 09/10/17 Signed Impressions: CONCLUSION: No acute intracranial findings. Chest X-Ray 09/09/171 Signed Impressions: CONCLUSION: Motion degraded exam grossly negative. Tibia/Fibula X-Ray 09/09/17 Signed Impressions: CONCLUSION: No evidence of fracture or focal bone erosion. Lower Extremity Ultrasound 09/09/17 Signed Impressions: CONCLUSION: No evidence of left lower extremity DVT. Narrative Exam Intact VAC dressing left lower extremity less erythema A/P Problem List: (1) Dressing dry and intact ICD Codes: Z48.01 - Encounter for change or removal of surgical wound dressing Status: Acute (2) Sepsis affecting skin ICD Codes: A41.9 - Sepsis, unspecified organism Status: Acute (3) Abscess of left lower extremity ICD Codes: L02.416 - Cutaneous abscess of left lower limb Status: Acute (4) Polysubstance (excluding opioids) dependence ICD Codes: F19.20 - Other psychoactive substance dependence, uncomplicated Status: Chronic (5) Polysubstance (including opioids) dependence with physiological dependence ICD Codes: F19.20 - Other psychoactive substance dependence, uncomplicated Status: Chronic (6) IVDU (intravenous drug user) ICD Codes: F19.90 - Other psychoactive substance use, unspecified, uncomplicated Status: Chronic Assessment and Plan 32-year-old IV drug user with an abscess through the left lower extremity at the rice formally debrided in the operating room last night placement of VAC dressing Defect measures 5 x 7 cm Plan to change the VAC on Thursday IV antibiotics as per infectious disease Advance diet and activities as tolerated Attending Statement NOTE FOR SURGICAL ATTENDING, DR. NUPUR VELA I attest that I had a [id number] encounter with the patient on the same day, and personally performed and documented my assessment and findings in the medical record. The following services were provided during this hospital visit: Chart data review, vital sign assessments/reviewing monitor data Review of consultations notes if present. Medication orders/review and/or management Ordering and/or reviewing lab tests Ordering and/or interpreting/reviewing x-rays and/or diagnostic studies Care of the patient and discussion of the patient with the care team Documentation time To help prompt me to consider important information that might be impacting today's encounter and assessment, Information from prior notes written by myself or my colleagues may have been "brought forward/copy and pasted" into today's note. Nupur Vela MD Sep 11, 2017 08:50
--- NOTE | 2017-09-11 10:19 | HHI.PR ---
Subjective Remarks The patient is more awake but still very sleepy. The patient denies chest pain or shortness of breath. Pain seems to be controlled. Objective Vitals Vital Signs Date Time Temp Pulse Resp B/P (MAP) Pulse Ox O2 Delivery O2 Flow Rate FiO2 09/11/17 08:18 97.9 71 18 113/75 (88) 100 09/11/17 04:00 100.2 97 25 105/71 (82) 98 09/11/17 01:50 102.1 106 35 101/68 (79) 98 09/11/17 00:00 98.2 99 19 105/67 (80) 100 09/10/17 22:25 98.6 102 19 106/68 (81) 100 09/10/17 21:30 97.4 92 20 100/66 (77) 97 Nasal Cannula 2 09/10/17 21:15 94 20 105/69 (81) 93 Nasal Cannula 2 09/10/17 21:00 92 20 101/66 (78) 93 Nasal Cannula 2 09/10/17 20:45 95 16 97/54 (68) 20 Nasal Cannula 4 09/10/17 20:38 97.8 91 20 101/66 (78) 94 Nasal Cannula 4 09/10/17 20:00 96 Nasal Cannula 4.00 09/10/17 18:39 100 Nasal Cannula 3 09/10/17 18:39 98.9 93 19 99/62 (74) 100 09/10/17 16:00 97.8 101 22 99/63 (75) 100 09/10/17 15:17 2.00 09/10/17 12:00 99.9 105 22 91/53 (66) 100 09/10/17 10:22 96 Nasal Cannula 2.00 I/O 09/10/17 09/10/17 09/10/17 09/11/17 09/11/17 09/11/17 07:00 15:00 23:00 07:00 15:00 23:00 Intake Total 1900 ml 1300 ml 400 ml Output Total 20 ml Balance 1900 ml 1280 ml 400 ml Intake Oral 500 ml 400 ml IV Total 1900 ml Other 800 ml Output Urine Total 0 ml Estimated Blood Loss 20 ml Bladder Scan Volume Amount 849 ml # Voids 1 # Bowel Movements 1 Result Diagram: 09/10/17 0758 09/10/17 0758 Imaging Last Impressions Lower Extremity CT 09/10/17 Signed Impressions: CONCLUSION: 1. Severe superficial soft tissue edema of the lower leg below the knee with d iffuse muscular edema of the anterior compartment suggesting myositis. No organ ized peripherally enhancing fluid collection identified. Mild superficial soft tissue edema of the anterior thigh. No evidence of muscular involvement in the thigh. 2. Osseous structures within normal limits. 3. Nonspecific enlarged inguinal and iliac lymph nodes on the left. Head CT 09/10/17 Signed Impressions: CONCLUSION: No acute intracranial findings. Chest X-Ray 09/09/172230 Signed Impressions: CONCLUSION: Motion degraded exam grossly negative. Tibia/Fibula X-Ray 09/09/17 Signed Impressions: CONCLUSION: No evidence of fracture or focal bone erosion. Lower Extremity Ultrasound 09/09/17 Signed Impressions: CONCLUSION: No evidence of left lower extremity DVT. Objective Remarks GENERAL: lethargic but arousable. Looks very ill and toxic SKIN: Left lower extremity with redness and swelling. There is an anterior rice ulceration that is 7 x 7 cm. Neurovascularly intact. Several dry scabs over face. HEAD: Normocephalic. EYES: No scleral icterus. No injection or drainage. NECK: Supple, trachea midline. No JVD or lymphadenopathy. CARDIOVASCULAR: Regular rate and rhythm without murmurs, gallops, or rubs. RESPIRATORY: Breath sounds equal bilaterally. No accessory muscle use. GASTROINTESTINAL: Abdomen soft, non-tender, nondistended. MUSCULOSKELETAL: No cyanosis, or edema. BACK: Nontender without obvious deformity. No CVA tenderness. Procedures Debridement with placement of wound VAC dressing on 09/10. A/P Problem List: (1) Sepsis affecting skin ICD Code: A41.9 - Sepsis, unspecified organism Status: Acute Plan: The specimen admission patient with leukocytosis, fever, tachycardia and cellulitis of the right lower extremity. CT of the lower extremity showed extensive superficial soft tissue edema of the lower leg with extension into deep soft tissues of the anterior muscular compartment and possible early cutaneous abscess formation at the level of the mid tibia shaft. General surgery consulted for debridement. 09/11 the patient status post debridement with wound VAC placement by general surgery. Appreciate assistance. Continue IV fluids Blood cultures are growing gram-positive cocci. Wound culture is growing MRSA and group A beta strep. Continue IV vancomycin and IV Zosyn. ID consulted, appreciate recommendations. Continue antibiotics as per ID. (2) Cellulitis and abscess of left lower extremity ICD Code: L03.116 - Cellulitis of left lower limb; L02.416 - Cutaneous abscess of left lower limb Status: Acute Plan: The patient is status post debridement by general surgery we would back placement. Antibiotics as per ID. Wound VAC management as per general surgery. (3) IVDU (intravenous drug user) ICD Code: F19.90 - Other psychoactive substance use, unspecified, uncomplicated Status: Chronic Plan: Urine drug screen positive for urine opiates, amphetamines, benzodiazepines. (4) Hypotension ICD Code: I95.9 - Hypotension, unspecified Plan: Due to sepsis secondary to right lower extremity cellulitis and possible abscess. 09/11 status post 3 boluses of IV normal saline. Continue IV fluids. Blood pressure much improved. Continue to monitor vital signs. (5) Metabolic encephalopathy ICD Code: G93.41 - Metabolic encephalopathy Status: Acute Plan: Due to sepsis secondary to right lower extremity cellulitis and possible abscess formation. 09/11 the patient is more awake (6) Hypokalemia ICD Code: E87.6 - Hypokalemia Plan: Severe hypokalemia likely due to decreased oral intake. 09/11 status post replacement with IV potassium chloride. BMP pending. Continue to monitor BMP and replace potassium as needed. Assessment and Plan Lovenox for DVT prophylaxis. Placed on PPI for GI prophylaxis. 35 minutes spent on critical care time. Discharge Planning Continue to monitor the medical floor. If the patient continues to be hypotensive then will transfer to the intensive care unit. Problem Qualifiers (1) Hypotension: Qualified Codes: I95.9 - Hypotension, unspecified Juan Dominguez MD Sep 11, 2017 10:19
--- NOTE | 2017-09-11 11:39 | HHI.IDPN ---
Subjective Subjective Remarks Patient is a 32-year-old female, presented to the hospital complaining of several day history of pain and swelling on her left lower extremity. 1 of the record had mentioned that she had some ant bites. She has no polysubstance abuse, and her drug screen was positive for opiates, amphetamines, cocaine. Since admission she has been febrile. Her white count elevated at 19,000. She is also tachycardic. Imaging study of the left lower extremity has shown evidence of cellulitis, and possibly beginning abscess on her anterior shaft, and there is also finding of swelling of the anterior muscles of her left leg. She is currently on vancomycin IV and Zosyn IV. Ultrasound did not show any evidence of DVT. CT of the head is also negative for any bleed or acute finding. Infectious disease consultation has been requested to evaluate the patient with left lower extremity cellulitis, and possible sepsis Notes reviewed Febrile up to 102 this morning Had surgery yesterday - wound vac L leg Mother at bedside Patient more awake BC with MRSA Antibiotics Current Medications Medications (Trade) Dose Ordered Sig/Christophe Route Start Time Stop Time Status Last Admin Piperacillin Sod/ Tazobactam Sod 50 ml @ 100 mls/hr Q6H IV 09/10/17 05:00 09/11/17 10:53 Sodium Chloride 1,000 ml @ 100 mls/hr Q10H IV 09/10/17 02:12 09/11/17 05:23 (NS Flush) 2 ml UNSCH PRN IV FLUSH 09/10/17 02:15 (NS Flush) 2 ml BID IV FLUSH 09/10/17 09:00 09/10/17 21:00 (Tylenol) 650 mg Q4H PRN PO 09/10/17 02:15 (Narcan Inj) 0.4 mg UNSCH PRN IV PUSH 09/10/17 02:15 (Ativan Inj) 1 mg Q4H PRN IV PUSH 09/10/17 02:15 (Tylenol Supp) 650 mg Q6H PRN RECTAL 09/10/17 06:45 09/11/17 02:10 Pharmacy Profile Note 0 ml @ 0 mls/hr UNSCH OTHER 09/10/17 11:30 Vancomycin HCl 700 mg/Sodium Chloride 257 ml @ 250 mls/hr Q8H IV 09/10/17 21:00 09/11/17 05:23 ([facility] Ordered Lab Info) SPECIFIC LAB TO BE JAMES... ONCE ONCE .XX 09/11/17 12:45 09/11/17 12:46 ([facility]) ALL NURSING DEPARTME... UNSCH PRN .XX 09/10/17 21:30 09/11/17 21:29 Lines Line no evid of infection Past Medical History Polysubstance abuse Past Surgical History Previous and delivery Inguinal hernia surgery Allergies: Coded Allergies: No Known Allergies (Verified Adverse Reaction, Unknown, 09/09/17) Objective . Vital Signs Date Time Temp Pulse Resp B/P (MAP) Pulse Ox O2 Delivery O2 Flow Rate FiO2 09/11/17 10:36 Nasal Cannula 2.00 09/11/17 08:18 97.9 71 18 113/75 (88) 100 09/11/17 04:00 100.2 97 25 105/71 (82) 98 09/11/17 01:50 102.1 106 35 101/68 (79) 98 09/11/17 00:00 98.2 99 19 105/67 (80) 100 09/10/17 22:25 98.6 102 19 106/68 (81) 100 09/10/17 21:30 97.4 92 20 100/66 (77) 97 Nasal Cannula 2 09/10/17 21:15 94 20 105/69 (81) 93 Nasal Cannula 2 09/10/17 21:00 92 20 101/66 (78) 93 Nasal Cannula 2 09/10/17 20:45 95 16 97/54 (68) 20 Nasal Cannula 4 09/10/17 20:38 97.8 91 20 101/66 (78) 94 Nasal Cannula 4 09/10/17 20:00 96 Nasal Cannula 4.00 09/10/17 18:39 100 Nasal Cannula 3 09/10/17 18:39 98.9 93 19 99/62 (74) 100 09/10/17 16:00 97.8 101 22 99/63 (75) 100 09/10/17 15:17 2.00 09/10/17 12:00 99.9 105 22 91/53 (66) 100 . Laboratory Tests Test 09/09/17 22:40 09/10/17 07:58 White Blood Count 19.7 TH/MM3 14.0 TH/MM3 Red Blood Count 3.78 MIL/MM3 3.25 MIL/MM3 Hemoglobin 10.1 GM/DL 9.1 GM/DL Hematocrit 30.2 % 26.1 % Mean Corpuscular Volume 79.9 FL 80.1 FL Mean Corpuscular Hemoglobin 26.8 PG 28.0 PG Mean Corpuscular Hemoglobin Concent 33.5 % 35.0 % Red Cell Distribution Width 17.4 % 17.5 % Platelet Count 457 TH/MM3 336 TH/MM3 Mean Platelet Volume 7.2 FL 7.1 FL Neutrophils (%) (Auto) 86.7 % 87.4 % Lymphocytes (%) (Auto) 6.4 % 6.0 % Monocytes (%) (Auto) 6.5 % 6.1 % Eosinophils (%) (Auto) 0.1 % 0.2 % Basophils (%) (Auto) 0.3 % 0.3 % Neutrophils # (Auto) 17.1 TH/MM3 12.2 TH/MM3 Lymphocytes # (Auto) 1.3 TH/MM3 0.8 TH/MM3 Monocytes # (Auto) 1.3 TH/MM3 0.8 TH/MM3 Eosinophils # (Auto) 0.0 TH/MM3 0.0 TH/MM3 Basophils # (Auto) 0.1 TH/MM3 0.0 TH/MM3 CBC Comment AUTO DIFF AUTO DIFF Differential Total Cells Counted 100 Neutrophils % (Manual) 86 % Band Neutrophils % 7 % Lymphocytes % 4 % Monocytes % 3 % Neutrophils # (Manual) 18.3 TH/MM3 Differential Comment FINAL DIFF MANUAL AUTO DIFF CONFIRMED Toxic Granulation 2+ 1+ Platelet Estimate HIGH NORMAL Platelet Morphology Comment NORMAL NORMAL Laboratory Tests Test 09/09/17 22:30 09/09/17 22:40 09/10/17 07:58 Lactic Acid Level 1.0 mmol/L Blood Urea Nitrogen 9 MG/DL 6 MG/DL Creatinine 0.83 MG/DL 0.67 MG/DL Random Glucose 83 MG/DL 80 MG/DL Total Protein 7.6 GM/DL 6.1 GM/DL Albumin 3.0 GM/DL Calcium Level 7.9 MG/DL 7.3 MG/DL Magnesium Level 1.5 MG/DL Alkaline Phosphatase 107 U/L Aspartate Amino Transf (AST/SGOT) 33 U/L Alanine Aminotransferase (ALT/SGPT) 33 U/L Total Bilirubin 0.7 MG/DL Sodium Level 134 MEQ/L 139 MEQ/L Potassium Level 3.1 MEQ/L 2.9 MEQ/L Chloride Level 99 MEQ/L 107 MEQ/L Carbon Dioxide Level 22.0 MEQ/L 21.5 MEQ/L Anion Gap 13 MEQ/L 11 MEQ/L Estimat Glomerular Filtration Rate 80 ML/MIN 102 ML/MIN Troponin I LESS THAN 0.02 NG/ML Lipase 31 U/L Protein Corrected Calcium 7.8 MG/DL Microbiology Date/Time Source Procedure Growth Status 09/09/17 22:40 Blood Peripheral Aerobic Blood Culture - Preliminary S. Aureus Mrsa Resulted 09/09/17 22:40 Anaerobic Blood Culture - Preliminary Gram Positive Cocci Resulted 09/09/17 22:40 Blood Peripheral Aerobic Blood Culture - Preliminary NO GROWTH IN 2 DAYS Resulted 09/09/17 22:40 Anaerobic Blood Culture - Preliminary Gram Positive Cocci Resulted 09/10/17 20:12 Wound Leg Gram Stain - Final Resulted 09/10/17 20:12 Wound Leg Wound Culture Pending Resulted 09/09/17 22:40 Wound Leg Gram Stain - Final Resulted 09/09/17 22:40 Wound Culture - Preliminary S. Aureus Mrsa Group A Beta Strep Resulted Imaging Last Impressions Lower Extremity CT 09/10/17 Signed Impressions: CONCLUSION: 1. Severe superficial soft tissue edema of the lower leg below the knee with d iffuse muscular edema of the anterior compartment suggesting myositis. No organ ized peripherally enhancing fluid collection identified. Mild superficial soft tissue edema of the anterior thigh. No evidence of muscular involvement in the thigh. 2. Osseous structures within normal limits. 3. Nonspecific enlarged inguinal and iliac lymph nodes on the left. Head CT 09/10/17 Signed Impressions: CONCLUSION: No acute intracranial findings. Chest X-Ray 09/09/172230 Signed Impressions: CONCLUSION: Motion degraded exam grossly negative. Tibia/Fibula X-Ray 09/09/17 Signed Impressions: CONCLUSION: No evidence of fracture or focal bone erosion. Lower Extremity Ultrasound 09/09/17 Signed Impressions: CONCLUSION: No evidence of left lower extremity DVT. Physical Exam GENERAL: Awake and alert, NAD SKIN: Warm and dry. Has skin lesions on face and RUE with eschar. No ecchymoses HEAD: Atraumatic. Normocephalic. No temporal wasting, or tenderness. EYES: [place] conjunctiva. No petechia or hemorrhage. Pupils equal, round and reactive to light. No scleral icterus. No injection or drainage. EARS, NOSE AND THROAT: Nose without bleeding or purulent nasal discharge. No sinus tenderness. Dry oral mucosa. Has lesions on face with eschar NECK: Trachea midline. Supple and not tender, no meningeal signs CARDIOVASCULAR: Regular rate and rhythm. Tachycardic. No murmurs, rubs or gallops heard RESPIRATORY: Clear to auscultation. Breath sounds equal bilaterally. No rales , wheezing or rhonchi. Decreased breath sounds at bases ABDOMEN: Soft, non-tender, nondistended. Bowel sounds present and normoactive. No guarding. No rebound. No organomegaly. EXTREMITIES: No clubbing, cyanosis. LLE larger compared to the RLE. There is erythema on her L leg, and there is a fwound vac on anterior leg. Has LN L groin. No calf tenderness. Well perfused and warm. NEUROLOGICAL: Non-focal PSYCHIATRIC: Calm and cooperative LINE: No evidence of infection Assessment & Plan Remarks IMPRESSION Sepsis on admission due to LLE infection - BC with MRSA - worrisome for endocarditis LLE cellulitis with myositis and possible abscess - S/P I and D Encephalopathy due to drugs and sepsis - better Known polysubstance abuse including IVDU, UDE (+) opiates, cocaine and amphetamines RECOMMENDATION Follow C/S Continue Vancomycin Continue Zosyn for now Repeat BC to document clearing Echo Follow temps Monitor progress Spoke with mother Shannan Hudson MD Sep 11, 2017 11:39
[2017-09-11 11:57] LABS: AUTOMATED NEUTROPHIL # 15.3 TH/MM3 (1.8-7.7); BASOPHIL # 0.1 TH/MM3 (0-0.2); BASOPHIL % 0.3 % (0.0-2.0); EOSINOPHIL % 0.2 % (0.0-4.0); HEMATOCRIT 30.1 % (35.0-46.0); HEMOGLOBIN 9.8 GM/DL (11.6-15.3); LYMPH % 4.5 % (9.0-44.0); LYMPHOCYTE # 0.8 TH/MM3 (1.0-4.8); MEAN CELL VOLUME 80.4 FL (80.0-100.0); MEAN CORPUSCULAR HEMOGLOBIN 26.3 PG (27.0-34.0); MEAN CORPUSCULAR HGB CONC 32.7 % (32.0-36.0); MEAN PLATELET VOLUME 7.6 FL (7.0-11.0); MONO % 4.3 % (0.0-8.0); MONOCYTE # 0.7 TH/MM3 (0-0.9); NEUT % 90.7 % (16.0-70.0); PLATELET COUNT 499 TH/MM3 (150-450); RED BLOOD COUNT 3.75 MIL/MM3 (4.00-5.30); WHITE BLOOD COUNT 16.9 TH/MM3 (4.0-11.0)
[2017-09-11 12:33] LABS: BICARBONATE 19.9 MEQ/L (21.0-32.0); CALCIUM 7.8 MG/DL (8.5-10.1); CREATININE 0.61 MG/DL (0.50-1.00)
[2017-09-11 12:40] LABS: BANDS 10 % (0-6); LYMPHOCYTES 4 % (9-44); MONOCYTES 1 % (0-8); NEUTROPHIL # MANUAL DIFF 16.1 TH/MM3 (1.8-7.7); POLYS (SEG NEUTROPHILS) 85 % (16-70)
[2017-09-11 12:41] LABS: TOXIC GRANULATION 1+ (NORMAL)
[2017-09-11] MEDS ORDERED: PHARMACY ORDERED LAB ONE (12:45)
[2017-09-11] MEDS: VANCOMYCIN 1,000 MG/NS 250 ML IV SCH ×2 (21:11)
[2017-09-11] MEDS: SODIUM CHLORIDE 0.9% FLUSH 10 ML FLUSH IV FLUSH PRN (21:11)
[2017-09-12] VITALS (10 sets, daily range): BP systolic 116–128; BP diastolic 76–84; PULSE 60–97; RESP 17–18; TEMP 97.8–98.3; O2SAT 98–100
[2017-09-12] MEDS: VANCOMYCIN 1,000 MG/NS 250 ML IV SCH ×4 (05:05→13:52)
[2017-09-12] MEDS: SODIUM CHLOR 0.9% 1000 ML INJ 1,000 ML IV SCH (05:05)
[2017-09-12] MEDS: PIPERACIL-TAZO 3.375 GM PREMIX 50 ML IV SCH ×4 (05:06→23:31)
[2017-09-12] MEDS: SODIUM CHLORIDE 0.9% FLUSH 10 ML FLUSH IV FLUSH SCH ×2 (09:48→21:33)
[2017-09-12] MEDS ORDERED: PHARMACY ORDERED LAB ONE (11:45)
--- NOTE | 2017-09-12 13:09 | HHI.PR ---
Subjective Remarks Follow-up sepsis/left lower extremity abscess and cellulitis/IVDU September 12, 2017-patient seen and examined, currently afebrile and denies any significant left lower extremity pain Objective Vitals Vital Signs Date Time Temp Pulse Resp B/P (MAP) Pulse Ox O2 Delivery O2 Flow Rate FiO2 09/12/17 12:01 97.8 97 18 128/77 (94) 98 09/12/17 09:55 Room Air 09/12/17 08:22 97.8 60 18 123/84 (97) 99 09/12/17 04:00 98.2 77 17 116/77 (90) 100 09/12/17 00:00 98.2 78 17 118/76 (90) 100 09/11/17 20:00 98.0 74 16 113/73 (86) 100 09/11/17 19:00 Nasal Cannula 2.00 09/11/17 16:37 97.9 84 18 109/74 (86) 98 I/O 09/11/17 09/11/17 09/11/17 09/12/17 09/12/17 09/12/17 07:00 15:00 23:00 07:00 15:00 23:00 Intake Total 400 ml Output Total 1200 ml Balance 400 ml -1200 ml Intake Oral 400 ml Output Urine Total 1200 ml Bladder Scan Volume Amount 849 ml 849 ml 840 ml # Voids 1 # Bowel Movements 1 Result Diagram: 09/11/17 1116 09/11/17 1116 Imaging Last Impressions Lower Extremity CT 09/10/17 0000 Signed Impressions: CONCLUSION: 1. Severe superficial soft tissue edema of the lower leg below the knee with d iffuse muscular edema of the anterior compartment suggesting myositis. No organ ized peripherally enhancing fluid collection identified. Mild superficial soft tissue edema of the anterior thigh. No evidence of muscular involvement in the thigh. 2. Osseous structures within normal limits. 3. Nonspecific enlarged inguinal and iliac lymph nodes on the left. Head CT 09/10/17 0000 Signed Impressions: CONCLUSION: No acute intracranial findings. Chest X-Ray 09/09/17 2231 Signed Impressions: CONCLUSION: Motion degraded exam grossly negative. Tibia/Fibula X-Ray 09/09/17 0000 Signed Impressions: CONCLUSION: No evidence of fracture or focal bone erosion. Lower Extremity Ultrasound 09/09/17 0000 Signed Impressions: CONCLUSION: No evidence of left lower extremity DVT. Objective Remarks GENERAL: NAD SKIN: Warm and dry. HEAD: Normocephalic. EYES: No scleral icterus. No injection or drainage. NECK: Supple, trachea midline. No JVD or lymphadenopathy. CARDIOVASCULAR: Regular rate and rhythm without murmurs, gallops, or rubs. RESPIRATORY: Breath sounds equal bilaterally. No accessory muscle use. GASTROINTESTINAL: Abdomen soft, non-tender, nondistended. MUSCULOSKELETAL: No cyanosis, or edema. Wound VAC to left lower extremity BACK: Nontender without obvious deformity. No CVA tenderness. Procedures Debridement with placement of wound VAC dressing on 09/10. A/P Problem List: (1) Sepsis affecting skin ICD Code: A41.9 - Sepsis, unspecified organism Status: Acute (2) Cellulitis and abscess of left lower extremity ICD Code: L03.116 - Cellulitis of left lower limb; L02.416 - Cutaneous abscess of left lower limb Status: Acute (3) IVDU (intravenous drug user) ICD Code: F19.90 - Other psychoactive substance use, unspecified, uncomplicated Status: Chronic (4) Hypotension ICD Code: I95.9 - Hypotension, unspecified (5) Metabolic encephalopathy ICD Code: G93.41 - Metabolic encephalopathy Status: Acute (6) Hypokalemia ICD Code: E87.6 - Hypokalemia Assessment and Plan 32-year-old female with Sepsis: Secondary to left lower extremity abscess and cellulitis Resolved MRSA bacteremia Currently on vancomycin and Zosyn per ID Continue to monitor cultures Left lower extremity cellulitis and abscess Status post I&D with wound VAC placement Management per general surgery Continue with IV antibiotics including vancomycin and Zosyn Metabolic encephalopathy Secondary to above infectious processes Resolved IVDU Counseled to quit Hypokalemia Resolved status post replacement DVT prophylaxis: Lovenox Problem Qualifiers (1) Hypotension: Qualified Codes: I95.9 - Hypotension, unspecified Delano Chacko MD Sep 12, 2017 13:09
[2017-09-12 13:17] LABS: AUTOMATED NEUTROPHIL # 10.3 TH/MM3 (1.8-7.7); BASOPHIL % 0.2 % (0.0-2.0); EOSINOPHIL # 0.1 TH/MM3 (0-0.4); EOSINOPHIL % 0.6 % (0.0-4.0); HEMATOCRIT 36.9 % (35.0-46.0); HEMOGLOBIN 12.1 GM/DL (11.6-15.3); LYMPH % 7.7 % (9.0-44.0); LYMPHOCYTE # 0.9 TH/MM3 (1.0-4.8); MEAN CELL VOLUME 80.9 FL (80.0-100.0); MEAN CORPUSCULAR HEMOGLOBIN 26.5 PG (27.0-34.0); MEAN CORPUSCULAR HGB CONC 32.8 % (32.0-36.0); MEAN PLATELET VOLUME 7.6 FL (7.0-11.0); MONO % 3.6 % (0.0-8.0); MONOCYTE # 0.4 TH/MM3 (0-0.9); NEUT % 87.9 % (16.0-70.0); PLATELET COUNT 625 TH/MM3 (150-450); RED BLOOD COUNT 4.56 MIL/MM3 (4.00-5.30); RED CELL DISTRIBUTION WIDTH 18.3 % (11.6-17.2); WHITE BLOOD COUNT 11.7 TH/MM3 (4.0-11.0)
[2017-09-12 13:44] LABS: ALBUMIN 2.2 GM/DL (3.4-5.0); AST (GOT) 17 U/L (15-37); BICARBONATE 21.1 MEQ/L (21.0-32.0); BLOOD UREA NITROGEN 5 MG/DL (7-18); CALCIUM 8.3 MG/DL (8.5-10.1); CHLORIDE 108 MEQ/L (98-107); CREATININE 0.64 MG/DL (0.50-1.00); GLOMERULAR FILTRATION RATE 108 ML/MIN (>89); GLUCOSE,RANDOM 105 MG/DL (74-106); MAGNESIUM 2.2 MG/DL (1.5-2.5); SODIUM (NA) 141 MEQ/L (136-145)
[2017-09-12 13:45] LABS: ALKALINE PHOSPHATASE 121 U/L (45-117); ALT (GPT) 31 U/L (10-53); PHOSPHORUS 1.8 MG/DL (2.5-4.9); TOTAL BILIRUBIN ADULT 0.3 MG/DL (0.2-1.0); TOTAL PROTEIN 7.4 GM/DL (6.4-8.2)
[2017-09-12 14:00] LABS: BANDS 5 % (0-6); BASOPHILS 1 % (0-2); LYMPHOCYTES 8 % (9-44); METAMYELOCYTES 2 % (0-1); MONOCYTES 2 % (0-8); MYELOCYTES 1 % (0-0); NEUTROPHIL # MANUAL DIFF 10.4 TH/MM3 (1.8-7.7); POLYS (SEG NEUTROPHILS) 81 % (16-70); TOXIC GRANULATION 2+ (NORMAL); TOXIC VACUOLATION PRESENT (NONE SEEN)
--- NOTE | 2017-09-12 17:33 | ECHRPT ---
Indication: Endocarditis CONCLUSIONS Normal left ventricular size and wall thickness. The left ventricular systolic function is normal wi th an estimated ejection fraction in the range of 60-65%. Normal wall motion. Trace mitral valve regurgitation. There is trace tricuspid valve regurgitation. The estimated pulmonary arterial pressure is 35 mmHg. BP: / HR: 90 Rhythm: Sinus MEASUREMENTS (Male / Female) Normal Values Technical Quality:Fair 2D ECHO LV Diastolic Diameter PLAX 4.6 cm 4.2 - 5.9 / 3.9 - 5.3 cm LV Systolic Diameter PLAX 3.2 cm IVS Diastolic Thickness 0.7 cm 0.6 - 1.0 / 0.6 - 0.9 cm LVPW Diastolic Thickness 0.7 cm 0.6 - 1.0 / 0.6 - 0.9 cm LV Relative Wall Thickness 0.3 RV Internal Dim ED PLAX 2.8 cm LVOT Diameter 1.8 cm LA Systolic Diameter LX 3.2 cm 3.0 - 4.0 / 2.7 - 3.8 cm M-MODE Aortic Root Diameter MM 2.2 cm LA Systolic Diameter MM 3.3 cm LA Ao Ratio MM 1.5 AV Cusp Separation MM 2.0 cm DOPPLER AV Peak Velocity 179.0 cm/s AV Peak Gradient 12.8 mmHg LVOT Peak Velocity 145.0 cm/s LVOT Peak Gradient 8.4 mmHg AV Area Cont Eq pk 2.1 cm MV Area PHT 3.5 cm Mitral E Point Velocity 103.0 cm/s Mitral A Point Velocity 66.7 cm/s Mitral E to A Ratio 1.5 LV E' Lateral Velocity 18.5 cm/s Mitral E to LV E' Lateral Ratio 5.6 LV E' Septal Velocity 14.5 cm/s Mitral E to LV E' Septal Ratio 7.1 TR Peak Velocity 282.0 cm/s TR Peak Gradient 31.8 mmHg FINDINGS LEFT VENTRICLE Normal left ventricular size and wall thickness. The left ventricular systolic function is normal wi th an estimated ejection fraction in the range of 60-65%. Normal wall motion. RIGHT VENTRICLE Normal right ventricular size and systolic function. LEFT ATRIUM The left atrial size is normal. RIGHT ATRIUM The right atrial size is normal. ATRIAL SEPTUM Normal atrial septal thickness without atrial level shunting by limited color doppler interrogation. AORTA The aortic root and proximal ascending aorta are normal in size on limited imaging. MITRAL VALVE Trace mitral valve regurgitation. AORTIC VALVE Trileaflet aortic valve. No aortic valve stenosis or regurgitation. TRICUSPID VALVE Structurally normal tricuspid valve. There is trace tricuspid valve regurgitation. The estimated pulmonary arterial pressure is 35 mmHg. PULMONARY VALVE Trivial pulmonary valve regurgitation. VESSELS The inferior vena cava is normal in size. PERICARDIUM No pericardial effusion. Marcelo Singh MD (Electronically Signed) Final Date:12 September 2017 17:32
--- NOTE | 2017-09-12 20:28 | HHI.PR ---
Subjective Subjective Notes feels better Objective Vitals/I&O Vital Signs Date Time Temp Pulse Resp B/P (MAP) Pulse Ox O2 Delivery O2 Flow Rate FiO2 09/12/17 17:00 79 09/12/17 16:29 97.9 18 119/81 (94) 100 09/12/17 09:55 Room Air 09/11/17 19:00 2.00 Labs Laboratory Tests Test 09/12/17 12:47 White Blood Count 11.7 Red Blood Count 4.56 Hemoglobin 12.1 Hematocrit 36.9 Mean Corpuscular Volume 80.9 Mean Corpuscular Hemoglobin 26.5 Mean Corpuscular Hemoglobin Concent 32.8 Red Cell Distribution Width 18.3 Platelet Count 625 Mean Platelet Volume 7.6 Neutrophils (%) (Auto) 87.9 Lymphocytes (%) (Auto) 7.7 Monocytes (%) (Auto) 3.6 Eosinophils (%) (Auto) 0.6 Basophils (%) (Auto) 0.2 Neutrophils # (Auto) 10.3 Lymphocytes # (Auto) 0.9 Monocytes # (Auto) 0.4 Eosinophils # (Auto) 0.1 Basophils # (Auto) 0.0 CBC Comment AUTO DIFF Differential Total Cells Counted 100 Neutrophils % (Manual) 81 Band Neutrophils % 5 Lymphocytes % 8 Monocytes % 2 Basophils % 1 Neutrophils # (Manual) 10.4 Metamyelocytes 2 Myelocytes 1 Differential Comment FINAL DIFF MANUAL Toxic Granulation 2+ Toxic Vacuolation PRESENT Platelet Estimate HIGH Platelet Morphology Comment NORMAL Blood Urea Nitrogen 5 Creatinine 0.64 Random Glucose 105 Total Protein 7.4 Albumin 2.2 Calcium Level 8.3 Phosphorus Level 1.8 Magnesium Level 2.2 Alkaline Phosphatase 121 Aspartate Amino Transf (AST/SGOT) 17 Alanine Aminotransferase (ALT/SGPT) 31 Total Bilirubin 0.3 Sodium Level 141 Potassium Level 3.2 Chloride Level 108 Carbon Dioxide Level 21.1 Anion Gap 12 Estimat Glomerular Filtration Rate 108 Vancomycin Level Trough 11.9 Date/Time Source Procedure Growth Status 09/12/17 12:47 Blood Peripheral Aerobic Blood Culture Pending Received 09/12/17 12:47 Blood Peripheral Anaerobic Blood Culture Pending Received 09/10/17 20:12 Wound Leg Gram Stain - Final Complete 09/10/17 20:12 Wound Culture - Final Group A Beta Strep S. Aureus Mrsa Complete Radiology Last 48 hours Impressions Lower Extremity CT 09/10/17 Signed Impressions: CONCLUSION: 1. Severe superficial soft tissue edema of the lower leg below the knee with d iffuse muscular edema of the anterior compartment suggesting myositis. No organ ized peripherally enhancing fluid collection identified. Mild superficial soft tissue edema of the anterior thigh. No evidence of muscular involvement in the thigh. 2. Osseous structures within normal limits. 3. Nonspecific enlarged inguinal and iliac lymph nodes on the left. Lower Extremity CT 09/10/17 Signed Impressions: CONCLUSION: 1. Extensive superficial soft tissue edema of the lower leg with extension int o the deep soft tissues of the anterior muscular compartment. No defined periph erally enhancing fluid collection. Possible early subcutaneous abscess formatio n anteriorly at the level the mid tibia shaft. 2. No evidence of focal bone erosion or abnormal periosteal reaction. Head CT 09/10/17 Signed Impressions: CONCLUSION: No acute intracranial findings. Chest X-Ray 09/09/172230 Signed Impressions: CONCLUSION: Motion degraded exam grossly negative. Tibia/Fibula X-Ray 09/09/17 Signed Impressions: CONCLUSION: No evidence of fracture or focal bone erosion. Lower Extremity Ultrasound 09/09/17 Signed Impressions: CONCLUSION: No evidence of left lower extremity DVT. Narrative Exam left lower leg with VAC in place, viable tissue A/P Problem List: (1) Dressing dry and intact ICD Codes: Z48.01 - Encounter for change or removal of surgical wound dressing Status: Acute (2) Sepsis affecting skin ICD Codes: A41.9 - Sepsis, unspecified organism Status: Acute (3) Abscess of left lower extremity ICD Codes: L02.416 - Cutaneous abscess of left lower limb Status: Acute (4) Polysubstance (excluding opioids) dependence ICD Codes: F19.20 - Other psychoactive substance dependence, uncomplicated Status: Chronic (5) Polysubstance (including opioids) dependence with physiological dependence ICD Codes: F19.20 - Other psychoactive substance dependence, uncomplicated Status: Chronic (6) IVDU (intravenous drug user) ICD Codes: F19.90 - Other psychoactive substance use, unspecified, uncomplicated Status: Chronic Assessment and Plan 32yo female IVDA with LLE abscess s/p ID and VAC, improving. VAC change Thursday Giles Hassan MD Sep 12, 2017 20:28
[2017-09-12] MEDS: VANCOMYCIN INJ 1,250 MG in SODIUM CHLOR 0.9% 250 ML INJ 250 ML IV SCH (21:33)
[2017-09-13] VITALS (10 sets, daily range): BP systolic 111–128; BP diastolic 71–86; PULSE 67–82; RESP 17–18; TEMP 97.5–98.4; O2SAT 97–100
[2017-09-13] MEDS: PIPERACIL-TAZO 3.375 GM PREMIX 50 ML IV SCH ×4 (04:48→23:07)
[2017-09-13] MEDS: VANCOMYCIN INJ 1,250 MG in SODIUM CHLOR 0.9% 250 ML INJ 250 ML IV SCH ×3 (04:51→20:25)
[2017-09-13] MEDS: SODIUM CHLORIDE 0.9% FLUSH 10 ML FLUSH IV FLUSH SCH ×2 (09:51→20:25)
--- NOTE | 2017-09-13 10:02 | HHI.PR ---
Subjective Remarks Follow-up sepsis/left lower extremity abscess and cellulitis/IVDU September 12, 2017-patient seen and examined, currently afebrile and denies any significant left lower extremity pain September 13, 2017-patient seen and examined, she had episode of pause overnight otherwise asymptomatic and stable today. Mother by the bedside. Patient is currently afebrile Objective Vitals Vital Signs Date Time Temp Pulse Resp B/P (MAP) Pulse Ox O2 Delivery O2 Flow Rate FiO2 09/13/17 08:21 97.5 77 18 128/83 (98) 100 09/13/17 04:00 98.4 69 18 121/86 (98) 99 09/13/17 00:00 98.3 68 17 122/78 (93) 99 09/12/17 23:53 68 09/12/17 20:00 99 Room Air 09/12/17 20:00 98.3 70 18 118/84 (95) 99 09/12/17 19:52 68 09/12/17 17:00 79 09/12/17 16:29 97.9 95 18 119/81 (94) 100 09/12/17 12:01 97.8 97 18 128/77 (94) 98 09/12/17 12:00 96 I/O 09/12/17 09/12/17 09/12/17 09/13/17 09/13/17 09/13/17 07:00 15:00 23:00 07:00 15:00 23:00 Intake Total 650 ml 1319 ml 303 ml Output Total 100 ml Balance 550 ml 1319 ml 303 ml IV Total 650 ml 1319 ml 303 ml Drainage Total 100 ml Bladder Scan Volume Amount 7 ml # Voids 1 2 # Bowel Movements 2 2 Result Diagram: 09/12/17 1247 09/12/17 1247 Objective Remarks GENERAL: NAD SKIN: Warm and dry. HEAD: Normocephalic. EYES: No scleral icterus. No injection or drainage. NECK: Supple, trachea midline. No JVD or lymphadenopathy. CARDIOVASCULAR: Regular rate and rhythm without murmurs, gallops, or rubs. RESPIRATORY: Breath sounds equal bilaterally. No accessory muscle use. GASTROINTESTINAL: Abdomen soft, non-tender, nondistended. MUSCULOSKELETAL: No cyanosis, or edema. Wound VAC to left lower extremity BACK: Nontender without obvious deformity. No CVA tenderness. Procedures Debridement with placement of wound VAC dressing on 09/10. A/P Problem List: (1) Sepsis affecting skin ICD Code: A41.9 - Sepsis, unspecified organism Status: Acute (2) Cellulitis and abscess of left lower extremity ICD Code: L03.116 - Cellulitis of left lower limb; L02.416 - Cutaneous abscess of left lower limb Status: Acute (3) IVDU (intravenous drug user) ICD Code: F19.90 - Other psychoactive substance use, unspecified, uncomplicated Status: Chronic (4) Hypotension ICD Code: I95.9 - Hypotension, unspecified (5) Metabolic encephalopathy ICD Code: G93.41 - Metabolic encephalopathy Status: Acute (6) Hypokalemia ICD Code: E87.6 - Hypokalemia Assessment and Plan 32-year-old female with Sepsis: Secondary to left lower extremity abscess and cellulitis Resolved MRSA bacteremia Currently on vancomycin and Zosyn per ID Continue to monitor cultures Repeat blood culture negative to date 2 days Left lower extremity cellulitis and abscess Status post I&D with wound VAC placement Management per general surgery Continue with IV antibiotics including vancomycin and Zosyn Wound VAC changed Thursday per protocol Metabolic encephalopathy Secondary to above infectious processes Resolved IVDU Counseled to quit Hypokalemia Resolved status post replacement DVT prophylaxis: Lovenox Problem Qualifiers (1) Hypotension: Qualified Codes: I95.9 - Hypotension, unspecified Delano Chacko MD Sep 13, 2017 10:02
--- NOTE | 2017-09-13 13:21 | HHI.PR ---
Subjective Subjective Notes Patient denies receiving any pain medication while in the hospital. She could use some she says. VAC has been beeping according to bedside nurse. Apparently all the external portions of the back of been changed. He continues to suggest there is no obstruction. I turned the VAC machine off and re- initialized it turned her back on and waited for several minutes and there was no evidence of obstruction or beeping. The patient desires to wait to have her dressing change until tomorrow. Objective Vitals/I&O Vital Signs Date Time Temp Pulse Resp B/P (MAP) Pulse Ox O2 Delivery O2 Flow Rate FiO2 09/13/17 12:33 97.8 82 18 121/71 (88) 100 09/13/17 09:45 Room Air 09/11/17 19:00 2.00 Labs Date/Time Source Procedure Growth Status 09/12/17 12:47 Blood Peripheral Aerobic Blood Culture - Preliminary NO GROWTH IN 1 DAY Resulted 09/12/17 12:47 Blood Peripheral Anaerobic Blood Culture - Preliminary NO GROWTH IN 1 DAY Resulted 09/10/17 20:12 Wound Leg Gram Stain - Final Complete 09/10/17 20:12 Wound Culture - Final Group A Beta Strep S. Aureus Mrsa Complete Radiology Last 48 hours Impressions Lower Extremity CT 09/10/17 0000 Signed Impressions: CONCLUSION: 1. Severe superficial soft tissue edema of the lower leg below the knee with d iffuse muscular edema of the anterior compartment suggesting myositis. No organ ized peripherally enhancing fluid collection identified. Mild superficial soft tissue edema of the anterior thigh. No evidence of muscular involvement in the thigh. 2. Osseous structures within normal limits. 3. Nonspecific enlarged inguinal and iliac lymph nodes on the left. Lower Extremity CT 09/10/17 0000 Signed Impressions: CONCLUSION: 1. Extensive superficial soft tissue edema of the lower leg with extension int o the deep soft tissues of the anterior muscular compartment. No defined periph erally enhancing fluid collection. Possible early subcutaneous abscess formatio n anteriorly at the level the mid tibia shaft. 2. No evidence of focal bone erosion or abnormal periosteal reaction. Head CT 09/10/17 0000 Signed Impressions: CONCLUSION: No acute intracranial findings. Chest X-Ray 09/09/17 2231 Signed Impressions: CONCLUSION: Motion degraded exam grossly negative. Tibia/Fibula X-Ray 09/09/17 0000 Signed Impressions: CONCLUSION: No evidence of fracture or focal bone erosion. Lower Extremity Ultrasound 09/09/17 0000 Signed Impressions: CONCLUSION: No evidence of left lower extremity DVT. Extremities: Other (Left leg VAC dressing intact. No evidence of leak. Residual minor erythema inferiorly. Minimal drainage within the VAC canister. Mild tenderness to palpation.) A/P Problem List: (1) Dressing dry and intact ICD Codes: Z48.01 - Encounter for change or removal of surgical wound dressing Status: Acute (2) Sepsis affecting skin ICD Codes: A41.9 - Sepsis, unspecified organism Status: Acute (3) Abscess of left lower extremity ICD Codes: L02.416 - Cutaneous abscess of left lower limb Status: Acute (4) Polysubstance (excluding opioids) dependence ICD Codes: F19.20 - Other psychoactive substance dependence, uncomplicated Status: Chronic (5) Polysubstance (including opioids) dependence with physiological dependence ICD Codes: F19.20 - Other psychoactive substance dependence, uncomplicated Status: Chronic (6) IVDU (intravenous drug user) ICD Codes: F19.90 - Other psychoactive substance use, unspecified, uncomplicated Status: Chronic Assessment and Plan Status post I and d left leg abscess. Dr. Schmidt planning dressing change possible conversion to wet to dry dressing tomorrow. Good Youssef MD Sep 13, 2017 13:21
[2017-09-14] VITALS (11 sets, daily range): BP systolic 115–135; BP diastolic 78–94; PULSE 56–85; RESP 18; TEMP 97.4–98.6; O2SAT 97–100
[2017-09-14] MEDS ORDERED: PHARMACY ORDERED LAB ONE (03:45)
[2017-09-14] MEDS: VANCOMYCIN INJ 1,250 MG in SODIUM CHLOR 0.9% 250 ML INJ 250 ML IV SCH ×3 (04:00→21:29)
[2017-09-14] MEDS: PIPERACIL-TAZO 3.375 GM PREMIX 50 ML IV SCH ×4 (06:01→23:36)
[2017-09-14] MEDS: SODIUM CHLORIDE 0.9% FLUSH 10 ML FLUSH IV FLUSH SCH ×2 (08:10→21:30)
--- NOTE | 2017-09-14 08:56 | HHI.PR ---
Subjective Remarks Follow-up sepsis/left lower extremity abscess and cellulitis/IVDU September 12, 2017-patient seen and examined, currently afebrile and denies any significant left lower extremity pain September 13, 2017-patient seen and examined, she had episode of pause overnight otherwise asymptomatic and stable today. Mother by the bedside. Patient is currently afebrile September 14, 2017-patient seen and examined, stable, no chest pain or shortness of breath, mother and boyfriend by the bedside Objective Vitals Vital Signs Date Time Temp Pulse Resp B/P (MAP) Pulse Ox O2 Delivery O2 Flow Rate FiO2 09/14/17 07:59 97.4 83 18 126/94 (105) 98 09/14/17 04:35 66 09/14/17 04:00 97.5 67 18 129/88 (102) 98 09/14/17 02:06 56 09/14/17 00:00 98.0 67 18 115/78 (90) 97 09/13/17 21:44 99 21 09/13/17 21:00 67 09/13/17 20:25 Room Air 09/13/17 20:00 98.1 73 18 111/76 (88) 98 09/13/17 17:19 97.8 68 18 119/77 (91) 100 09/13/17 16:30 77 09/13/17 13:35 97 21 09/13/17 12:33 97.8 82 18 121/71 (88) 100 09/13/17 09:45 Room Air I/O 09/13/17 09/13/17 09/13/17 09/14/17 09/14/17 09/14/17 07:00 15:00 23:00 07:00 15:00 23:00 Intake Total 303 ml 50 ml 262.5 ml Output Total 50 ml Balance 303 ml 0 ml 262.5 ml IV Total 303 ml 50 ml 262.5 ml Drainage Total 50 ml # Voids 1 4 # Bowel Movements 1 Result Diagram: 09/12/17 1247 09/12/17 1247 Objective Remarks GENERAL: NAD SKIN: Warm and dry. HEAD: Normocephalic. EYES: No scleral icterus. No injection or drainage. NECK: Supple, trachea midline. No JVD or lymphadenopathy. CARDIOVASCULAR: Regular rate and rhythm without murmurs, gallops, or rubs. RESPIRATORY: Breath sounds equal bilaterally. No accessory muscle use. GASTROINTESTINAL: Abdomen soft, non-tender, nondistended. MUSCULOSKELETAL: No cyanosis, or edema. Wound VAC to left lower extremity BACK: Nontender without obvious deformity. No CVA tenderness. Procedures Debridement with placement of wound VAC dressing on 09/10. A/P Problem List: (1) Sepsis affecting skin ICD Code: A41.9 - Sepsis, unspecified organism Status: Acute (2) Cellulitis and abscess of left lower extremity ICD Code: L03.116 - Cellulitis of left lower limb; L02.416 - Cutaneous abscess of left lower limb Status: Acute (3) IVDU (intravenous drug user) ICD Code: F19.90 - Other psychoactive substance use, unspecified, uncomplicated Status: Chronic (4) Hypotension ICD Code: I95.9 - Hypotension, unspecified (5) Metabolic encephalopathy ICD Code: G93.41 - Metabolic encephalopathy Status: Acute (6) Hypokalemia ICD Code: E87.6 - Hypokalemia Assessment and Plan 32-year-old female with Sepsis: Secondary to left lower extremity abscess and cellulitis Resolved MRSA bacteremia Currently on vancomycin and Zosyn per ID Continue to monitor cultures Repeat blood culture negative to date 3 days Left lower extremity cellulitis and abscess Status post I&D with wound VAC placement Management per general surgery Continue with IV antibiotics including vancomycin and Zosyn Wound VAC changed Thursday per protocol Metabolic encephalopathy Secondary to above infectious processes Resolved IVDU Counseled to quit Hypokalemia Resolved status post replacement DVT prophylaxis: Lovenox Problem Qualifiers (1) Hypotension: Qualified Codes: I95.9 - Hypotension, unspecified Delano Chacko MD Sep 14, 2017 08:56
[2017-09-14] MEDS: SODIUM CHLORIDE 0.9% FLUSH 10 ML FLUSH IV FLUSH PRN (09:57)
[2017-09-14] MEDS ORDERED: MORPHINE SULFATE 4 MG/ML INJ IM ONE (10:30)
[2017-09-14 10:39] LABS: AUTOMATED NEUTROPHIL # 9.3 TH/MM3 (1.8-7.7); BASOPHIL # 0.1 TH/MM3 (0-0.2); EOSINOPHIL # 0.1 TH/MM3 (0-0.4); EOSINOPHIL % 1.2 % (0.0-4.0); HEMATOCRIT 36.1 % (35.0-46.0); HEMOGLOBIN 11.9 GM/DL (11.6-15.3); LYMPH % 13.7 % (9.0-44.0); LYMPHOCYTE # 1.6 TH/MM3 (1.0-4.8); MEAN CELL VOLUME 81.1 FL (80.0-100.0); MEAN CORPUSCULAR HEMOGLOBIN 26.7 PG (27.0-34.0); MEAN PLATELET VOLUME 7.2 FL (7.0-11.0); MONO % 4.1 % (0.0-8.0); MONOCYTE # 0.5 TH/MM3 (0-0.9); PLATELET COUNT 691 TH/MM3 (150-450); RED BLOOD COUNT 4.46 MIL/MM3 (4.00-5.30); RED CELL DISTRIBUTION WIDTH 17.7 % (11.6-17.2); WHITE BLOOD COUNT 11.7 TH/MM3 (4.0-11.0)
[2017-09-14 11:21] LABS: ALBUMIN 2.5 GM/DL (3.4-5.0); ALKALINE PHOSPHATASE 95 U/L (45-117); ALT (GPT) 31 U/L (10-53); AST (GOT) 20 U/L (15-37); BICARBONATE 22.3 MEQ/L (21.0-32.0); BLOOD UREA NITROGEN 4 MG/DL (7-18); CALCIUM 8.9 MG/DL (8.5-10.1); CHLORIDE 104 MEQ/L (98-107); CREATININE 0.68 MG/DL (0.50-1.00); GLOMERULAR FILTRATION RATE 100 ML/MIN (>89); GLUCOSE,RANDOM 79 MG/DL (74-106); SODIUM (NA) 140 MEQ/L (136-145); TOTAL BILIRUBIN ADULT 0.2 MG/DL (0.2-1.0); TOTAL PROTEIN 7.7 GM/DL (6.4-8.2)
[2017-09-14 12:23] LABS: BANDS 9 % (0-6); LYMPHOCYTES 17 % (9-44); MONOCYTES 1 % (0-8); MYELOCYTES 4 % (0-0); NEUTROPHIL # MANUAL DIFF 9.2 TH/MM3 (1.8-7.7); POLYS (SEG NEUTROPHILS) 66 % (16-70)
--- NOTE | 2017-09-14 14:35 | PD.WCN.NOT ---
Wound Consult Description: Wound consult ordered by for wound management. Communicated with: Rod Lang RN Recommendation: 1. Cleanse left lower extremity wound with normal saline pat dry. 2. Apply Maxorb ll cut to fit wound base , Calazime to periwound and cover with dry dressing secure with rolled gauze/paper tape. 3. Change dressing every 3 days or as needed for dislodgement/exudate management.Sign and date all dressings. 4. Follow up with out patient wound center. Additional Information: Patient was seen today by typewriter repairer for wound vac management.Patient alert and oriented x4 resting in bed with mother present at bedside.Wound vac turned off due to blockage alarm.History on Vac machine states blockage alarm since 09/12 @ 2103.Dressing removed from left rice with out difficulty and wound cleansed with normal saline apt dry. full thickness Wound measures 6.3cm x 5.1cm x 0.3cm Wound base is 90% beefy red granulated tissue 10% white tissue .Wound edges are well defined sloped with wound base.~ 80% Periwound is macerated with denuded pink moist tissue present.Maxorb ll cut to fit wound base applied Calazime applied to periwound then covered with dry dressing and secured with rolled gauze paper tape.Dressing signed and dated.All questions answered regarding wound care and teaching performed on signs and symptoms of infection and life style changes.Patient /mother demonstrated understanding. Moreno Keith [facility] Sep 14, 2017 14:35
[2017-09-14] MEDS ORDERED: POTASSIUM CHLORIDE 10 MEQ CONTROLLED RELEASE TAB PO ONE (15:15)
[2017-09-14] MEDS ORDERED: POTASSIUM CHLORIDE 20 MEQ CONTROLLED RELEASE TAB PO ONE (16:00)
--- NOTE | 2017-09-14 17:09 | HHI.PR ---
cc: Nupur Vela MD Subjective Subjective Notes DAILY PROGRESS NOTE FOR SURGICAL ATTENDING, DR. NUPUR VELA Coloring in bed Tolerated dressing change Objective Vitals/I&O Vital Signs Date Time Temp Pulse Resp B/P (MAP) Pulse Ox O2 Delivery O2 Flow Rate FiO2 09/14/17 16:06 85 09/14/17 15:39 98.6 18 127/81 (96) 99 09/14/17 09:19 Room Air 09/13/17 21:44 21 09/11/17 19:00 2.00 Labs Laboratory Tests Test 09/14/17 03:05 09/14/17 08:20 Vancomycin Level Trough 15.2 White Blood Count 11.7 Red Blood Count 4.46 Hemoglobin 11.9 Hematocrit 36.1 Mean Corpuscular Volume 81.1 Mean Corpuscular Hemoglobin 26.7 Mean Corpuscular Hemoglobin Concent 33.0 Red Cell Distribution Width 17.7 Platelet Count 691 Mean Platelet Volume 7.2 Neutrophils (%) (Auto) 80.0 Lymphocytes (%) (Auto) 13.7 Monocytes (%) (Auto) 4.1 Eosinophils (%) (Auto) 1.2 Basophils (%) (Auto) 1.0 Neutrophils # (Auto) 9.3 Lymphocytes # (Auto) 1.6 Monocytes # (Auto) 0.5 Eosinophils # (Auto) 0.1 Basophils # (Auto) 0.1 CBC Comment AUTO DIFF Differential Total Cells Counted 100 Neutrophils % (Manual) 66 Band Neutrophils % 9 Lymphocytes % 17 Monocytes % 1 Eosinophils % 3 Neutrophils # (Manual) 9.2 Myelocytes 4 Differential Comment FINAL DIFF MANUAL Platelet Estimate HIGH Platelet Morphology Comment NORMAL Red Cell Morphology Comment NORMAL Blood Urea Nitrogen 4 Creatinine 0.68 Random Glucose 79 Total Protein 7.7 Albumin 2.5 Calcium Level 8.9 Alkaline Phosphatase 95 Aspartate Amino Transf (AST/SGOT) 20 Alanine Aminotransferase (ALT/SGPT) 31 Total Bilirubin 0.2 Sodium Level 140 Potassium Level 2.8 Chloride Level 104 Carbon Dioxide Level 22.3 Anion Gap 14 Estimat Glomerular Filtration Rate 100 Date/Time Source Procedure Growth Status 09/12/17 12:47 Blood Peripheral Aerobic Blood Culture - Preliminary NO GROWTH IN 2 DAYS Resulted 09/12/17 12:47 Blood Peripheral Anaerobic Blood Culture - Preliminary NO GROWTH IN 2 DAYS Resulted 09/10/17 20:12 Wound Leg Gram Stain - Final Complete 09/10/17 20:12 Wound Culture - Final Group A Beta Strep S. Aureus Mrsa Complete Radiology Last 48 hours Impressions Lower Extremity CT 09/10/17 0000 Signed Impressions: CONCLUSION: 1. Severe superficial soft tissue edema of the lower leg below the knee with d iffuse muscular edema of the anterior compartment suggesting myositis. No organ ized peripherally enhancing fluid collection identified. Mild superficial soft tissue edema of the anterior thigh. No evidence of muscular involvement in the thigh. 2. Osseous structures within normal limits. 3. Nonspecific enlarged inguinal and iliac lymph nodes on the left. Lower Extremity CT 09/10/17 0000 Signed Impressions: CONCLUSION: 1. Extensive superficial soft tissue edema of the lower leg with extension int o the deep soft tissues of the anterior muscular compartment. No defined periph erally enhancing fluid collection. Possible early subcutaneous abscess formatio n anteriorly at the level the mid tibia shaft. 2. No evidence of focal bone erosion or abnormal periosteal reaction. Head CT 09/10/17 0000 Signed Impressions: CONCLUSION: No acute intracranial findings. Chest X-Ray 09/09/17 2231 Signed Impressions: CONCLUSION: Motion degraded exam grossly negative. Tibia/Fibula X-Ray 09/09/17 0000 Signed Impressions: CONCLUSION: No evidence of fracture or focal bone erosion. Lower Extremity Ultrasound 09/09/17 0000 Signed Impressions: CONCLUSION: No evidence of left lower extremity DVT. Cardiovascular: Regular Lungs: Clear Abdomen: Non-distended, Non-tender Narrative Exam LEFT leg Wound Vac removed; wet to dry dressing in place A/P Problem List: (1) Dressing dry and intact ICD Codes: Z48.01 - Encounter for change or removal of surgical wound dressing Status: Acute (2) Sepsis affecting skin ICD Codes: A41.9 - Sepsis, unspecified organism Status: Acute (3) Abscess of left lower extremity ICD Codes: L02.416 - Cutaneous abscess of left lower limb Status: Acute (4) Polysubstance (excluding opioids) dependence ICD Codes: F19.20 - Other psychoactive substance dependence, uncomplicated Status: Chronic (5) Polysubstance (including opioids) dependence with physiological dependence ICD Codes: F19.20 - Other psychoactive substance dependence, uncomplicated Status: Chronic (6) IVDU (intravenous drug user) ICD Codes: F19.90 - Other psychoactive substance use, unspecified, uncomplicated Status: Chronic Assessment and Plan 32 year old female POD4 I&D LEFT leg abscess -Transition to wet to dry dressings -Antibiotics per ID -Regular diet Attending Statement NOTE FOR SURGICAL ATTENDING, DR. NUPUR VELA I agree with above assessment and plan. The following services were provided during this hospital visit: Chart data review, vital sign assessments/reviewing monitor data Review of consultations notes if present. Medication orders/review and/or management Ordering and/or reviewing lab tests Ordering and/or interpreting/reviewing x-rays and/or diagnostic studies Care of the patient and discussion of the patient with the care team Documentation time To help prompt me to consider important information that might be impacting today's encounter and assessment, Information from prior notes written by myself or my colleagues may have been "brought forward/copy and pasted" into today's note. Ileana Zapata/First [employer] CAGLE Sep 14, 2017 17:09 Nupur Vela MD Sep 14, 2017 17:48
[2017-09-14] MEDS ORDERED: diphenhydrAMINE HCL 25 MG CAP PO PRN (17:45)
[2017-09-14] MEDS ORDERED: TRIAMCINOLONE ACETONIDE 0.1% CREAM 15 GM TOPICAL SCH (18:00)
[2017-09-15] VITALS (9 sets, daily range): BP systolic 122–134; BP diastolic 70–87; PULSE 62–88; RESP 18; TEMP 97.3–98.3; O2SAT 97–100
[2017-09-15] MEDS: VANCOMYCIN INJ 1,250 MG in SODIUM CHLOR 0.9% 250 ML INJ 250 ML IV SCH ×3 (04:27→23:07)
[2017-09-15] MEDS: PIPERACIL-TAZO 3.375 GM PREMIX 50 ML IV SCH ×2 (06:04→09:58)
[2017-09-15] MEDS: SODIUM CHLORIDE 0.9% FLUSH 10 ML FLUSH IV FLUSH SCH ×2 (07:31→23:08)
--- NOTE | 2017-09-15 09:22 | MP ---
cc: Bg Schmidt MD DATE OF OPERATION: 09/10/2017 DATE OF PROCEDURE: 09/10/2017. PREOPERATIVE DIAGNOSIS: Left lower extremity abscess with necrotic tissue. POSTOPERATIVE DIAGNOSIS: Left lower extremity abscess with necrotic tissue. PROCEDURE PERFORMED: Wide debridement of abscess left lower extremity with irrigation and debridement and incision and drainage of 5 x 7 cm skin necrosis with underlying abscess with application of VAC device. ANESTHESIA: General. SURGEON: MD Brayan INDICATIONS FOR PROCEDURE: This is an unfortunate lady who has a wound in her lower extremity and abscess with cellulitic response around it. She needs formal debridement in the operating room. PROCEDURE IN DETAIL: The patient is taken to the operating room and placed in supine position. After anesthesia, a timeout is done. She is already on antibiotics. The defect measures 5 x 7 cm where she has necrotic skin. This is sharply debrided with sharp knives and scissors and the abscess is unroofed and drained and irrigated. Subcutaneous tissue and fascia is removed that is necrotic. This is done with sharp scissors and knives. We then scrub the wound with a Betadine scrub brush to clean the other necrotic debris until it is a nice beefy-red tissue, which is cauterized for hemostasis. The wound is then dressed with a VAC dressing with the black sponge measuring 5 x 7 cm and the appliance is applied in the typical fashion with negative pressure at 125 continuous. The patient tolerated the procedure well with no immediate postop complication. Bg Schmidt MD JRAMIN/CHRIS , 09:07 AM , 09:22 AM
[2017-09-15 09:58] LABS: BICARBONATE 25.3 MEQ/L (21.0-32.0); CALCIUM 9.4 MG/DL (8.5-10.1); CREATININE 0.7 MG/DL (0.50-1.00)
[2017-09-15] MEDS: SODIUM CHLORIDE 0.9% FLUSH 10 ML FLUSH IV FLUSH PRN (09:58)
--- NOTE | 2017-09-15 10:06 | HHI.PR ---
Subjective Remarks Follow-up sepsis/left lower extremity abscess and cellulitis/IVDU September 12, 2017-patient seen and examined, currently afebrile and denies any significant left lower extremity pain September 13, 2017-patient seen and examined, she had episode of pause overnight otherwise asymptomatic and stable today. Mother by the bedside. Patient is currently afebrile September 14, 2017-patient seen and examined, stable, no chest pain or shortness of breath, mother and boyfriend by the bedside September 15, 2017-patient seen and examined, wound VAC was removed yesterday. Patient currently stable and repeat blood culture negative to date. Mom by the bedside. Objective Vitals Vital Signs Date Time Temp Pulse Resp B/P (MAP) Pulse Ox O2 Delivery O2 Flow Rate FiO2 09/15/17 08:58 82 09/15/17 08:06 Room Air 09/15/17 07:59 97.5 74 18 124/86 (99) 100 09/15/17 04:35 97.4 62 18 132/87 (102) 99 09/15/17 00:38 98.3 66 18 124/71 (88) 97 09/14/17 21:03 98.0 71 18 134/92 (106) 98 09/14/17 20:25 21 09/14/17 16:06 85 09/14/17 15:39 98.6 81 18 127/81 (96) 99 09/14/17 14:10 78 09/14/17 11:42 97.9 79 18 135/89 (104) 100 I/O 09/14/17 09/14/17 09/14/17 09/15/17 09/15/17 09/15/17 07:00 15:00 23:00 07:00 15:00 23:00 Intake Total 312.5 ml 50 ml Balance 312.5 ml 50 ml IV Total 312.5 ml 50 ml # Voids 6 2 # Bowel Movements 2 1 Result Diagram: 09/14/17 0820 09/15/17 0645 Objective Remarks GENERAL: NAD SKIN: Warm and dry. HEAD: Normocephalic. EYES: No scleral icterus. No injection or drainage. NECK: Supple, trachea midline. No JVD or lymphadenopathy. CARDIOVASCULAR: Regular rate and rhythm without murmurs, gallops, or rubs. RESPIRATORY: Breath sounds equal bilaterally. No accessory muscle use. GASTROINTESTINAL: Abdomen soft, non-tender, nondistended. MUSCULOSKELETAL: No cyanosis, or edema. Dressing over left lower extremity wound BACK: Nontender without obvious deformity. No CVA tenderness. Procedures Debridement with placement of wound VAC dressing on 09/10. A/P Problem List: (1) Sepsis affecting skin ICD Code: A41.9 - Sepsis, unspecified organism Status: Acute (2) Cellulitis and abscess of left lower extremity ICD Code: L03.116 - Cellulitis of left lower limb; L02.416 - Cutaneous abscess of left lower limb Status: Acute (3) IVDU (intravenous drug user) ICD Code: F19.90 - Other psychoactive substance use, unspecified, uncomplicated Status: Chronic (4) Hypotension ICD Code: I95.9 - Hypotension, unspecified (5) Metabolic encephalopathy ICD Code: G93.41 - Metabolic encephalopathy Status: Acute (6) Hypokalemia ICD Code: E87.6 - Hypokalemia Assessment and Plan 32-year-old female with Sepsis: Secondary to left lower extremity abscess and cellulitis Resolved 2D echo without any evidence of vegetation MRSA bacteremia Currently on vancomycin and Zosyn per ID Continue to monitor cultures Repeat blood culture negative to date 4 days 2D echo without any evidence of vegetation Left lower extremity cellulitis and abscess Status post I&D with wound VAC placement Management per general surgery Continue with IV antibiotics including vancomycin and Zosyn Wound VAC move Thursday, September 14, 2017 Continue with wet and dry dressing Metabolic encephalopathy Secondary to above infectious processes Resolved IVDU Counseled to quit Hypokalemia Resolved status post replacement DVT prophylaxis: Lovenox Problem Qualifiers (1) Hypotension: Qualified Codes: I95.9 - Hypotension, unspecified Delano Chacko MD Sep 15, 2017 10:06
--- NOTE | 2017-09-15 11:41 | HHI.PR ---
cc: Nupur Vela MD Subjective Subjective Notes DAILY PROGRESS NOTE FOR SURGICAL ATTENDING, DR. NUPUR VELA Resting in bed Mother at bedside No complaints Objective Vitals/I&O Vital Signs Date Time Temp Pulse Resp B/P (MAP) Pulse Ox O2 Delivery O2 Flow Rate FiO2 09/15/17 08:58 82 09/15/17 08:06 Room Air 09/15/17 07:59 97.5 18 124/86 (99) 100 09/14/17 20:25 21 09/11/17 19:00 2.00 Labs Laboratory Tests Test 09/15/17 06:45 Blood Urea Nitrogen 9 Creatinine 0.70 Random Glucose 70 Calcium Level 9.4 Sodium Level 140 Potassium Level 4.3 Chloride Level 104 Carbon Dioxide Level 25.3 Anion Gap 11 Estimat Glomerular Filtration Rate 97 Date/Time Source Procedure Growth Status 09/12/17 12:47 Blood Peripheral Aerobic Blood Culture - Preliminary NO GROWTH IN 3 DAYS Resulted 09/12/17 12:47 Blood Peripheral Anaerobic Blood Culture - Preliminary NO GROWTH IN 3 DAYS Resulted 09/10/17 20:12 Wound Leg Gram Stain - Final Complete 09/10/17 20:12 Wound Culture - Final Group A Beta Strep S. Aureus Mrsa Complete Radiology Last 48 hours Impressions Lower Extremity CT 09/10/17 0000 Signed Impressions: CONCLUSION: 1. Severe superficial soft tissue edema of the lower leg below the knee with d iffuse muscular edema of the anterior compartment suggesting myositis. No organ ized peripherally enhancing fluid collection identified. Mild superficial soft tissue edema of the anterior thigh. No evidence of muscular involvement in the thigh. 2. Osseous structures within normal limits. 3. Nonspecific enlarged inguinal and iliac lymph nodes on the left. Lower Extremity CT 09/10/17 0000 Signed Impressions: CONCLUSION: 1. Extensive superficial soft tissue edema of the lower leg with extension int o the deep soft tissues of the anterior muscular compartment. No defined periph erally enhancing fluid collection. Possible early subcutaneous abscess formatio n anteriorly at the level the mid tibia shaft. 2. No evidence of focal bone erosion or abnormal periosteal reaction. Head CT 09/10/17 0000 Signed Impressions: CONCLUSION: No acute intracranial findings. Chest X-Ray 09/09/171 Signed Impressions: CONCLUSION: Motion degraded exam grossly negative. Tibia/Fibula X-Ray 09/09/17 0000 Signed Impressions: CONCLUSION: No evidence of fracture or focal bone erosion. Lower Extremity Ultrasound 09/09/17 0000 Signed Impressions: CONCLUSION: No evidence of left lower extremity DVT. Cardiovascular: Regular Lungs: Clear Abdomen: Non-distended, Non-tender Narrative Exam LEFT leg Maorb dressing in place A/P Problem List: (1) Dressing dry and intact ICD Codes: Z48.01 - Encounter for change or removal of surgical wound dressing Status: Acute (2) Sepsis affecting skin ICD Codes: A41.9 - Sepsis, unspecified organism Status: Acute (3) Abscess of left lower extremity ICD Codes: L02.416 - Cutaneous abscess of left lower limb Status: Acute (4) Polysubstance (excluding opioids) dependence ICD Codes: F19.20 - Other psychoactive substance dependence, uncomplicated Status: Chronic (5) Polysubstance (including opioids) dependence with physiological dependence ICD Codes: F19.20 - Other psychoactive substance dependence, uncomplicated Status: Chronic (6) IVDU (intravenous drug user) ICD Codes: F19.90 - Other psychoactive substance use, unspecified, uncomplicated Status: Chronic Assessment and Plan 32 year old female POD5 I&D LEFT leg abscess -Transition to Maxorb dressing; change Q72 -Antibiotics per ID -Regular diet Attending Statement NOTE FOR SURGICAL ATTENDING, DR. NUPUR VEAL I agree with above assessment and plan. The exam, history, and the medical decision-making described in the above note were completed with the assistance of the mid-level provider. I reviewed and agree with the findings presented. The following services were provided during this hospital visit: Chart data review, vital sign assessments/reviewing monitor data Review of consultations notes if present. Medication orders/review and/or management Ordering and/or reviewing lab tests Ordering and/or interpreting/reviewing x-rays and/or diagnostic studies Care of the patient and discussion of the patient with the care team Documentation time To help prompt me to consider important information that might be impacting today's encounter and assessment, Information from prior notes written by myself or my colleagues may have been "brought forward/copy and pasted" into today's note. Ileana ZapataP/Wing Commander [employer] TECHNICIAN Sep 15, 2017 11:41 Nupur Vela MD Sep 16, 2017 07:54
--- NOTE | 2017-09-15 13:26 | HHI.IDPN ---
Subjective Subjective Remarks Patient is a 32-year-old female, presented to the hospital complaining of several day history of pain and swelling on her left lower extremity. 1 of the record had mentioned that she had some ant bites. She has no polysubstance abuse, and her drug screen was positive for opiates, amphetamines, cocaine. Since admission she has been febrile. Her white count elevated at 19,000. She is also tachycardic. Imaging study of the left lower extremity has shown evidence of cellulitis, and possibly beginning abscess on her anterior shaft, and there is also finding of swelling of the anterior muscles of her left leg. She is currently on vancomycin IV and Zosyn IV. Ultrasound did not show any evidence of DVT. CT of the head is also negative for any bleed or acute finding. Infectious disease consultation has been requested to evaluate the patient with left lower extremity cellulitis, and possible sepsis Notes reviewed Temps better No new (+) BC BC (+) on admission (?Blood drawn same time) Wound C/S MRSAand Strep Antibiotics Current Medications Medications (Trade) Dose Ordered Sig/Christophe Route Start Time Stop Time Status Last Admin (NS Flush) 2 ml UNSCH PRN IV FLUSH 09/10/17 02:15 09/15/17 09:58 (NS Flush) 2 ml BID IV FLUSH 09/10/17 09:00 09/15/17 07:31 (Tylenol) 650 mg Q4H PRN PO 09/10/17 02:15 (Narcan Inj) 0.4 mg UNSCH PRN IV PUSH 09/10/17 02:15 (Ativan Inj) 1 mg Q4H PRN IV PUSH 09/10/17 02:15 (Tylenol Supp) 650 mg Q6H PRN RECTAL 09/10/17 06:45 09/11/17 02:10 Pharmacy Profile Note 0 ml @ 0 mls/hr UNSCH OTHER 09/10/17 11:30 Vancomycin HCl 1250 mg/Sodium Chloride 262.5 ml @ 250 mls/hr Q8H IV 09/12/17 20:00 09/15/17 11:42 ([facility] Ordered Lab Info) SPECIFIC LAB TO BE DRAWN:VANCO TROUGH DATE TO... ONCE ONCE .XX 09/19/17 03:45 09/19/17 03:46 Lines Line no evid of infection Past Medical History Polysubstance abuse Past Surgical History Previous and delivery Inguinal hernia surgery Allergies: Coded Allergies: No Known Allergies (Verified Adverse Reaction, Unknown, 09/09/17) Objective . Vital Signs Date Time Temp Pulse Resp B/P (MAP) Pulse Ox O2 Delivery O2 Flow Rate FiO2 09/15/17 12:50 85 09/15/17 11:51 98.2 87 18 124/70 (88) 100 09/15/17 08:58 82 09/15/17 08:06 Room Air 09/15/17 07:59 97.5 74 18 124/86 (99) 100 09/15/17 04:35 97.4 62 18 132/87 (102) 99 09/15/17 00:38 98.3 66 18 124/71 (88) 97 09/14/17 21:03 98.0 71 18 134/92 (106) 98 09/14/17 20:25 21 09/14/17 16:06 85 09/14/17 15:39 98.6 81 18 127/81 (96) 99 09/14/17 14:10 78 09/15/17 09/15/17 09/16/17 15:00 23:00 07:00 Intake Total 312.5 ml Balance 312.5 ml IV Total 312.5 ml # Voids 2 . Laboratory Tests Test 09/14/17 08:20 White Blood Count 11.7 TH/MM3 Red Blood Count 4.46 MIL/MM3 Hemoglobin 11.9 GM/DL Hematocrit 36.1 % Mean Corpuscular Volume 81.1 FL Mean Corpuscular Hemoglobin 26.7 PG Mean Corpuscular Hemoglobin Concent 33.0 % Red Cell Distribution Width 17.7 % Platelet Count 691 TH/MM3 Mean Platelet Volume 7.2 FL Neutrophils (%) (Auto) 80.0 % Lymphocytes (%) (Auto) 13.7 % Monocytes (%) (Auto) 4.1 % Eosinophils (%) (Auto) 1.2 % Basophils (%) (Auto) 1.0 % Neutrophils # (Auto) 9.3 TH/MM3 Lymphocytes # (Auto) 1.6 TH/MM3 Monocytes # (Auto) 0.5 TH/MM3 Eosinophils # (Auto) 0.1 TH/MM3 Basophils # (Auto) 0.1 TH/MM3 CBC Comment AUTO DIFF Differential Total Cells Counted 100 Neutrophils % (Manual) 66 % Band Neutrophils % 9 % Lymphocytes % 17 % Monocytes % 1 % Eosinophils % 3 % Neutrophils # (Manual) 9.2 TH/MM3 Myelocytes 4 % Differential Comment FINAL DIFF MANUAL Platelet Estimate HIGH Platelet Morphology Comment NORMAL Red Cell Morphology Comment NORMAL Laboratory Tests Test 09/14/17 08:20 09/15/17 06:45 Blood Urea Nitrogen 4 MG/DL 9 MG/DL Creatinine 0.68 MG/DL 0.70 MG/DL Random Glucose 79 MG/DL 70 MG/DL Total Protein 7.7 GM/DL Albumin 2.5 GM/DL Calcium Level 8.9 MG/DL 9.4 MG/DL Alkaline Phosphatase 95 U/L Aspartate Amino Transf (AST/SGOT) 20 U/L Alanine Aminotransferase (ALT/SGPT) 31 U/L Total Bilirubin 0.2 MG/DL Sodium Level 140 MEQ/L 140 MEQ/L Potassium Level 2.8 MEQ/L 4.3 MEQ/L Chloride Level 104 MEQ/L 104 MEQ/L Carbon Dioxide Level 22.3 MEQ/L 25.3 MEQ/L Anion Gap 14 MEQ/L 11 MEQ/L Estimat Glomerular Filtration Rate 100 ML/MIN 97 ML/MIN Imaging Last Impressions Lower Extremity CT 09/10/17 Signed Impressions: CONCLUSION: 1. Severe superficial soft tissue edema of the lower leg below the knee with d iffuse muscular edema of the anterior compartment suggesting myositis. No organ ized peripherally enhancing fluid collection identified. Mild superficial soft tissue edema of the anterior thigh. No evidence of muscular involvement in the thigh. 2. Osseous structures within normal limits. 3. Nonspecific enlarged inguinal and iliac lymph nodes on the left. Head CT 09/10/17 Signed Impressions: CONCLUSION: No acute intracranial findings. Chest X-Ray 09/09/172230 Signed Impressions: CONCLUSION: Motion degraded exam grossly negative. Tibia/Fibula X-Ray 09/09/17 Signed Impressions: CONCLUSION: No evidence of fracture or focal bone erosion. Lower Extremity Ultrasound 09/09/17 Signed Impressions: CONCLUSION: No evidence of left lower extremity DVT. Physical Exam GENERAL: Awake and alert, NAD SKIN: Warm and dry. Has skin lesions on face and RUE with eschar. No ecchymoses HEAD: Atraumatic. Normocephalic. No temporal wasting, or tenderness. EYES: Spray conjunctiva. No petechia or hemorrhage. Pupils equal, round and reactive to light. No scleral icterus. No injection or drainage. EARS, NOSE AND THROAT: Nose without bleeding or purulent nasal discharge. No sinus tenderness. Dry oral mucosa. Has lesions on face with eschar NECK: Trachea midline. Supple and not tender, no meningeal signs CARDIOVASCULAR: Regular rate and rhythm. Tachycardic. No murmurs, rubs or gallops heard RESPIRATORY: Clear to auscultation. Breath sounds equal bilaterally. No rales , wheezing or rhonchi. Decreased breath sounds at bases ABDOMEN: Soft, non-tender, nondistended. Bowel sounds present and normoactive. No guarding. No rebound. No organomegaly. EXTREMITIES: No clubbing, cyanosis. LLE wound - clean with red tissue, no purulence, erythema around better and minimal NEUROLOGICAL: Non-focal PSYCHIATRIC: Calm and cooperative LINE: No evidence of infection Assessment & Plan Remarks IMPRESSION Sepsis on admission due to LLE infection - BC with MRSA, seems transient LLE cellulitis with myositis and possible abscess - S/P I and D Encephalopathy due to drugs and sepsis - resolved Known polysubstance abuse including IVDU, UDE (+) opiates, cocaine and amphetamines RECOMMENDATION Continue Vancomycin Stop Zosyn Will ask CM to evaluate for Zyvox for D/C - 10 days Zyvox on D/C Should be able to go home tomorrow once Zyvox obtained Clinically doing well Explained plan to the patient Shannan Hudson MD Sep 15, 2017 13:26
[2017-09-16] VITALS (9 sets, daily range): BP systolic 119–138; BP diastolic 71–85; PULSE 85–113; RESP 18; TEMP 97.3–98.6; O2SAT 98–100
[2017-09-16] MEDS: VANCOMYCIN INJ 1,250 MG in SODIUM CHLOR 0.9% 250 ML INJ 250 ML IV SCH ×4 (04:44→23:50)
[2017-09-16] MEDS: LINEZOLID 600 MG TAB PO SCH ×3 (08:41→20:23)
[2017-09-16] MEDS: SODIUM CHLORIDE 0.9% FLUSH 10 ML FLUSH IV FLUSH SCH ×2 (08:42→20:19)
[2017-09-16] MEDS ORDERED: ZYVO600T PO (08:53)
--- NOTE | 2017-09-16 11:17 | HHI.PR ---
Subjective Remarks Follow-up sepsis/left lower extremity abscess and cellulitis/IVDU September 12, 2017-patient seen and examined, currently afebrile and denies any significant left lower extremity pain September 13, 2017-patient seen and examined, she had episode of pause overnight otherwise asymptomatic and stable today. Mother by the bedside. Patient is currently afebrile September 14, 2017-patient seen and examined, stable, no chest pain or shortness of breath, mother and boyfriend by the bedside September 15, 2017-patient seen and examined, wound VAC was removed yesterday. Patient currently stable and repeat blood culture negative to date. Mom by the bedside. September 16, 2017-patient seen and examined, she is looking for discharge tomorrow. Otherwise stable today Objective Vitals Vital Signs Date Time Temp Pulse Resp B/P (MAP) Pulse Ox O2 Delivery O2 Flow Rate FiO2 09/16/17 10:08 100 09/16/17 08:00 102 09/16/17 08:00 98.6 104 18 138/84 (102) 100 09/16/17 06:03 97.6 92 18 128/85 (99) 99 09/16/17 00:43 98.0 95 18 136/82 (100) 98 09/15/17 20:38 97.3 75 18 134/83 (100) 99 09/15/17 17:11 88 09/15/17 15:42 97.9 86 18 122/78 (93) 100 09/15/17 12:50 85 09/15/17 11:51 98.2 87 18 124/70 (88) 100 I/O 09/15/17 09/15/17 09/15/17 09/16/17 09/16/17 09/16/17 07:00 15:00 23:00 07:00 15:00 23:00 Intake Total 312.5 ml Balance 312.5 ml IV Total 312.5 ml # Voids 2 1 Result Diagram: 09/14/1781909/15/17 0645 Objective Remarks GENERAL: NAD SKIN: Warm and dry. HEAD: Normocephalic. EYES: No scleral icterus. No injection or drainage. NECK: Supple, trachea midline. No JVD or lymphadenopathy. CARDIOVASCULAR: Regular rate and rhythm without murmurs, gallops, or rubs. RESPIRATORY: Breath sounds equal bilaterally. No accessory muscle use. GASTROINTESTINAL: Abdomen soft, non-tender, nondistended. MUSCULOSKELETAL: No cyanosis, or edema. Dressing over left lower extremity wound BACK: Nontender without obvious deformity. No CVA tenderness. Procedures Debridement with placement of wound VAC dressing on 09/10. A/P Problem List: (1) Sepsis affecting skin ICD Code: A41.9 - Sepsis, unspecified organism Status: Acute (2) Cellulitis and abscess of left lower extremity ICD Code: L03.116 - Cellulitis of left lower limb; L02.416 - Cutaneous abscess of left lower limb Status: Acute (3) IVDU (intravenous drug user) ICD Code: F19.90 - Other psychoactive substance use, unspecified, uncomplicated Status: Chronic (4) Hypotension ICD Code: I95.9 - Hypotension, unspecified (5) Metabolic encephalopathy ICD Code: G93.41 - Metabolic encephalopathy Status: Acute (6) Hypokalemia ICD Code: E87.6 - Hypokalemia Assessment and Plan 32-year-old female with Sepsis: Secondary to left lower extremity abscess and cellulitis Resolved 2D echo without any evidence of vegetation MRSA bacteremia Currently on vancomycin and Zyvox per ID. Patient will need 10 days of Zyvox Continue to monitor cultures Repeat blood culture negative to date 5 days 2D echo without any evidence of vegetation Left lower extremity cellulitis and abscess Status post I&D with wound VAC placement Management per general surgery Continue with IV antibiotics including vancomycin and Zyvox.She will need 10 days of Zyvox Wound VAC move Thursday, September 14, 2017 Continue with wet and dry dressing Metabolic encephalopathy Secondary to above infectious processes Resolved IVDU Counseled to quit Hypokalemia Resolved status post replacement DVT prophylaxis: Lovenox Problem Qualifiers (1) Hypotension: Qualified Codes: I95.9 - Hypotension, unspecified Delano Chacko MD Sep 16, 2017 11:16
[2017-09-17 00:24] VITALS: BP 117/71; PULSE 85; RESP 18; TEMP 97.8; O2SAT 99
[2017-09-17 05:48] VITALS: BP 117/74; PULSE 79; RESP 18; TEMP 97.6; O2SAT 99
[2017-09-17 08:00] VITALS: BP 115/72; PULSE 109; PULSE 117; RESP 18; TEMP 97.6; O2SAT 100
[2017-09-17] MEDS: LINEZOLID 600 MG TAB PO SCH (08:25)
[2017-09-17] MEDS: SODIUM CHLORIDE 0.9% FLUSH 10 ML FLUSH IV FLUSH SCH (08:29)
--- NOTE | 2017-09-17 10:45 | HHI.PR ---
Subjective Remarks Follow-up sepsis/left lower extremity abscess and cellulitis/IVDU September 12, 2017-patient seen and examined, currently afebrile and denies any significant left lower extremity pain September 13, 2017-patient seen and examined, she had episode of pause overnight otherwise asymptomatic and stable today. Mother by the bedside. Patient is currently afebrile September 14, 2017-patient seen and examined, stable, no chest pain or shortness of breath, mother and boyfriend by the bedside September 15, 2017-patient seen and examined, wound VAC was removed yesterday. Patient currently stable and repeat blood culture negative to date. Mom by the bedside. September 16, 2017-patient seen and examined, she is looking for discharge tomorrow. Otherwise stable today September 17, 2017-patient seen and examined, patient is ready for discharge. Requesting some treatment for yeast infection Objective Vitals Vital Signs Date Time Temp Pulse Resp B/P (MAP) Pulse Ox O2 Delivery O2 Flow Rate FiO2 09/17/17 08:00 97.6 109 18 115/72 (86) 100 09/17/17 05:48 97.6 79 18 117/74 (88) 99 09/17/17 00:24 97.8 85 18 117/71 (86) 99 09/16/17 23:46 96 09/16/17 20:30 98.2 85 18 129/71 (90) 99 09/16/17 19:49 88 09/16/17 16:00 97.7 99 18 119/75 (90) 98 09/16/17 12:10 113 09/16/17 12:00 97.3 94 18 128/75 (92) 100 Result Diagram: 09/14/17 0820 09/15/17 0645 Imaging Last Impressions Lower Extremity CT 09/10/17 0000 Signed Impressions: CONCLUSION: 1. Severe superficial soft tissue edema of the lower leg below the knee with d iffuse muscular edema of the anterior compartment suggesting myositis. No organ ized peripherally enhancing fluid collection identified. Mild superficial soft tissue edema of the anterior thigh. No evidence of muscular involvement in the thigh. 2. Osseous structures within normal limits. 3. Nonspecific enlarged inguinal and iliac lymph nodes on the left. Head CT 09/10/17 0000 Signed Impressions: CONCLUSION: No acute intracranial findings. Chest X-Ray 6/13/18 2231 Signed Impressions: CONCLUSION: Motion degraded exam grossly negative. Tibia/Fibula X-Ray 09/09/17 0000 Signed Impressions: CONCLUSION: No evidence of fracture or focal bone erosion. Lower Extremity Ultrasound 09/09/17 0000 Signed Impressions: CONCLUSION: No evidence of left lower extremity DVT. Objective Remarks GENERAL: NAD SKIN: Warm and dry. HEAD: Normocephalic. EYES: No scleral icterus. No injection or drainage. NECK: Supple, trachea midline. No JVD or lymphadenopathy. CARDIOVASCULAR: Regular rate and rhythm without murmurs, gallops, or rubs. RESPIRATORY: Breath sounds equal bilaterally. No accessory muscle use. GASTROINTESTINAL: Abdomen soft, non-tender, nondistended. MUSCULOSKELETAL: No cyanosis, or edema. Dressing over left lower extremity wound BACK: Nontender without obvious deformity. No CVA tenderness. Procedures Debridement with placement of wound VAC dressing on 09/10. A/P Problem List: (1) Sepsis affecting skin ICD Code: A41.9 - Sepsis, unspecified organism Status: Acute (2) Cellulitis and abscess of left lower extremity ICD Code: L03.116 - Cellulitis of left lower limb; L02.416 - Cutaneous abscess of left lower limb Status: Acute (3) IVDU (intravenous drug user) ICD Code: F19.90 - Other psychoactive substance use, unspecified, uncomplicated Status: Chronic (4) Hypotension ICD Code: I95.9 - Hypotension, unspecified (5) Metabolic encephalopathy ICD Code: G93.41 - Metabolic encephalopathy Status: Acute (6) Hypokalemia ICD Code: E87.6 - Hypokalemia Assessment and Plan 32-year-old female with Sepsis: Secondary to left lower extremity abscess and cellulitis Resolved 2D echo without any evidence of vegetation MRSA bacteremia Currently on vancomycin and Zyvox per ID. Patient will need 10 days of Zyvox Continue to monitor cultures Repeat blood culture negative to date 5 days 2D echo without any evidence of vegetation Left lower extremity cellulitis and abscess Status post I&D with wound VAC placement Management per general surgery Continue with IV antibiotics including vancomycin and Zyvox.She will need 10 days of Zyvox Wound VAC move Thursday, September 14, 2017 Continue with wet and dry dressing Metabolic encephalopathy Secondary to above infectious processes Resolved IVDU Counseled to quit Hypokalemia Resolved status post replacement DVT prophylaxis: Lovenox Problem Qualifiers (1) Hypotension: Qualified Codes: I95.9 - Hypotension, unspecified Delano Chacko MD Sep 17, 2017 10:45
[2017-09-17] MEDS ORDERED: DIFL100T PO (10:46)
--- NOTE | 2017-09-17 10:49 | HHI.DS ---
Discharge Summary Admission Date Sep 10, 2017 at 01:32 Discharge Date: Sep 17, 2017 Admitting Diagnosis sepsis; LLE cellulitis; IVDA/substance abuse (1) Sepsis affecting skin ICD Code: A41.9 - Sepsis, unspecified organism Status: Acute (2) Cellulitis and abscess of left lower extremity ICD Code: L03.116 - Cellulitis of left lower limb; L02.416 - Cutaneous abscess of left lower limb Status: Acute (3) IVDU (intravenous drug user) ICD Code: F19.90 - Other psychoactive substance use, unspecified, uncomplicated Status: Chronic (4) Hypotension ICD Code: I95.9 - Hypotension, unspecified (5) Metabolic encephalopathy ICD Code: G93.41 - Metabolic encephalopathy Status: Acute (6) Hypokalemia ICD Code: E87.6 - Hypokalemia Procedures Debridement with placement of wound VAC dressing on 09/10. Brief History - From Admission 32-year-old female with a past medical history significant for polysubstance abuse presents to the emergency department for evaluation of left lower extremity pain and swelling. She states that the symptoms have been going on for the past few days. During the time of our interview, the patient is sleeping. Per emergency department documentation she denies any chest pain or shortness of breath. She does not know whether she had any fevers or chills. Remainder of the history is unable to be obtained at this time secondary to patient's clinical condition. CBC/BMP: 09/14/17 0820 09/15/17 0645 Significant Findings Laboratory Tests Test 09/15/17 06:45 Random Glucose 70 MG/DL (74-106) Imaging Last Impressions Lower Extremity CT 09/10/17 0000 Signed Impressions: CONCLUSION: 1. Severe superficial soft tissue edema of the lower leg below the knee with d iffuse muscular edema of the anterior compartment suggesting myositis. No organ ized peripherally enhancing fluid collection identified. Mild superficial soft tissue edema of the anterior thigh. No evidence of muscular involvement in the thigh. 2. Osseous structures within normal limits. 3. Nonspecific enlarged inguinal and iliac lymph nodes on the left. Head CT 09/10/17 0000 Signed Impressions: CONCLUSION: No acute intracranial findings. Chest X-Ray 09/09/171 Signed Impressions: CONCLUSION: Motion degraded exam grossly negative. Tibia/Fibula X-Ray 09/09/17 0000 Signed Impressions: CONCLUSION: No evidence of fracture or focal bone erosion. Lower Extremity Ultrasound 09/09/17 0000 Signed Impressions: CONCLUSION: No evidence of left lower extremity DVT. PE at Discharge GENERAL: NAD SKIN: Warm and dry. HEAD: Normocephalic. EYES: No scleral icterus. No injection or drainage. NECK: Supple, trachea midline. No JVD or lymphadenopathy. CARDIOVASCULAR: Regular rate and rhythm without murmurs, gallops, or rubs. RESPIRATORY: Breath sounds equal bilaterally. No accessory muscle use. GASTROINTESTINAL: Abdomen soft, non-tender, nondistended. MUSCULOSKELETAL: No cyanosis, or edema. Dressing over left lower extremity wound BACK: Nontender without obvious deformity. No CVA tenderness. Hospital Course While in hospital, patient was treated for: Sepsis: Secondary to left lower extremity abscess and cellulitis Resolved 2D echo without any evidence of vegetation MRSA bacteremia She was treated with vancomycin and subsequently switched to p.o. Zyvox per ID, which will need for total of 10 days Continue to monitor cultures Repeat blood culture negative to date 5 days 2D echo without any evidence of vegetation Left lower extremity cellulitis and abscess Status post I&D with wound VAC placement Management per general surgery She was treated with vancomycin and subsequently switched to p.o. Zyvox per ID, which will need for total of 10 days Wound VAC was removed Thursday, September 14, 2017 Metabolic encephalopathy Secondary to above infectious processes Resolved IVDU Counseled to quit Hypokalemia Resolved status post replacement DVT prophylaxis: Lovenox Pt Condition on Discharge: Good Discharge Disposition: Discharge Home Discharge Time: <= 30 minutes Discharge Instructions DIET: Follow Instructions for: As Tolerated, No Restrictions Activities you can perform: Regular-No Restrictions Follow up Referrals: PCP Follow-up - 1 Week New Medications: Fluconazole (Diflucan) 100 Mg Tab 100 MG PO DAILY for Infection, #7 TAB 0 Refills Linezolid (Zyvox) 600 Mg Tab 600 MG PO Q12H for Infection for 10 Days, #20 TAB 0 Refills Delano Chacko MD Sep 17, 2017 10:49
--- NOTE | 2017-09-17 11:17 | PD.WCN.NOT ---
Wound Consult Description: Follow up for wound management. Communicated with: Teo Maurice RN Recommendation: 1. Cleanse left lower extremity wound with normal saline pat dry. 2. Apply Maxorb AG cut to fit wound base , Calazime to periwound and cover with dry dressing secure with boarder gauze 3. Change dressing every 5 days or as needed for dislodgement/exudate management.Sign and date all dressings. 4. Follow up with out patient wound center. Additional Information: Patient was seen today for follow up of wound management.Patient alert and oriented x4 sitting up in bed with mother present at bedside.Dressing removed from left lower extremity with out difficulty.Wound cleansed with normal saline pat dry.Full thickness wound measures 5.0cm x 5.3cm x 0.3cm Wound base is 80% moist red granular tissue 20% moist pink tissue .Wound edges are well defined sloped with wound base .Periwound intact dry Blanchable .Maxorb AG cut to fit wound base applied and covered with dry sterile gauze secured with boarder gauze signed and dated. Dressing supplies left with patient for ~4 dressing changes.Mother/patient verbalized understanding on dressing changes. Moreno Keith [facility] Sep 17, 2017 11:17
[2017-09-19] MEDS ORDERED: PHARMACY ORDERED LAB ONE (03:45)
== END 2017-09-17 11:28 | disposition home or self-care (01) | DRG 853 ==
LOC: NEPC 22:10 → NEDA 09-10 01:32 → N05A 09-10 02:57
PROVIDERS: ADMIT Hospitalist; ATTEND Hospitalist
PROC: 0H9LXZX Drainage of Left Lower Leg Skin, External Approach, Diagnostic (ICD-10-PCS; 2017-09-10)
PROC: 2W1RX6Z Compression of Left Lower Leg using Pressure Dressing (ICD-10-PCS; 2017-09-10)
PROC: 0JBP0ZZ Excision of Left Lower Leg Subcutaneous Tissue and Fascia, Open Approach (ICD-10-PCS; principal; 2017-09-10 19:37)
DX: A41.9 Sepsis, unspecified organism (principal); G93.41 Metabolic encephalopathy; I95.89 Other hypotension; L03.116 Cellulitis of left lower limb; L02.416 Cutaneous abscess of left lower limb; B95.62 Methicillin resistant Staphylococcus aureus infection as the cause of diseases classified elsewhere; B95.0 Streptococcus, group A, as the cause of diseases classified elsewhere; E87.6 Hypokalemia; F12.90 Cannabis use, unspecified, uncomplicated; F14.10 Cocaine abuse, uncomplicated; F11.10 Opioid abuse, uncomplicated; F17.210 Nicotine dependence, cigarettes, uncomplicated
CPT/HCPCS: 70450; 71045; 73590; 73701; 80048; 80053; 80202; 80307; 81001; 83605; 83690; 83735; 84100; 84155; 84484; 84703; 85007; 85025; 85027; 85610; 85730; 86403; 87040; 87070; 87147; 87186; 87205; 93005; 93306; 93971; 96365; 96366; 96375; J2060; J2405; J2543; J2710; J3370; J3480; J7030; J7050; P9612; Q9967

== ENCOUNTER 2017-09-23 04:40 | Inpatient (IN) | END 2017-09-26 13:25 | disposition home or self-care (01) | LOC: N04 09:38 | PROVIDERS: ADMIT Hospitalist; ATTEND Hospitalist ==